=== PATIENT | female | born 1955 | race Two or more races ===

== ENCOUNTER 2024-07-01 09:19 | Emergency (ER) | payer OTHER, MEDICAID ==
[~2024-07-01] VITALS: Ht 160 cm; Wt 54.6 kg
[2024-07-01 09:44] VITALS: BP 155/80; PULSE 111; RESP 16; O2SAT 99
== END 2024-07-01 11:22 | disposition left against medical advice (07) ==
LOC: ER 09:19
DX: R79.83 Abnormal findings of blood amino-acid level (principal); R53.1 Weakness; R06.02 Shortness of breath

== ENCOUNTER 2024-08-10 09:36 | Emergency (ER) | payer OTHER, MEDICAID ==
[~2024-08-10] VITALS: Ht 160 cm; Wt 54.8 kg
[2024-08-10 10:24] LABS: Hemoglobin 9.2 g/dL (12.2-16.2); Mean Corpuscular Hemoglobin 31.4 pg (28.0-32.0); Platelet Count (auto) 119 10^3/uL (140-450)
[2024-08-10 10:25] LABS: Hematocrit 28.5 % (36.0-46.0); Mean Corpuscular Hgb Conc. 32.5 g/dL (32.0-36.0); Mean Corpuscular Volume 96.5 fL (80.0-100.0); Red Blood Cells 2.95 10^6/uL (4.0-5.20); Red Cell Distribution Width 17.5 % (11.8-14.3)
[2024-08-10 10:31] LABS: Band Neutrophils % (manual) 0; Basophils % (manual) 0 (0.0-2.0); Blast Cells 0; Eosinophils % (manual) 0 (0-7); Metamyelocytes % 0; Monocytes % (manual) 0 (0-12); Myelocytes % 0; Promyelocytes % 0; Reactive Lymphocytes 0; White Blood Cell 33.4 10^3/uL (4.4-10.8)
[2024-08-10 10:47] LABS: Chloride 104 mmol/L (98-107); Sodium 135 mmol/L (136-145)
[2024-08-10 10:48] LABS: Anion Gap 4 (5-15); Carbon Dioxide 27 mmol/L (20-31)
[2024-08-10 10:51] LABS: Potassium 4.5 mmol/L (3.5-5.1)
[2024-08-10 10:53] LABS: Glucose 106 mg/dL (74-106)
[2024-08-10 11:06] VITALS: PULSE 94; RESP 12; O2SAT 97
[2024-08-10 11:42] LABS: BUN/Creatinine Ratio 26.5 (10.0-20.0); Blood Urea Nitrogen 22 mg/dL (9-23)
[2024-08-10 12:02] LABS: Lymphocytes % (manual) 92 (10.0-50.0); Platelet Estimate Decreased
[2024-08-10] MEDS ORDERED: LACT10PA2 PO (12:32)
[2024-08-10 12:51] VITALS: BP 111/60; PULSE 97; RESP 12; TEMP 97.8; O2SAT 97
== END 2024-08-10 12:30 | disposition home or self-care (01) ==
LOC: ER 09:36
DX: R16.2 Hepatomegaly with splenomegaly, not elsewhere classified (principal); K59.00 Constipation, unspecified; F12.90 Cannabis use, unspecified, uncomplicated; Z98.890 Other specified postprocedural states
CPT/HCPCS: 36415; 74176; 80048; 85007; 85027

== ENCOUNTER 2024-11-13 14:00 | Emergency (ER) | payer OTHER, MEDICAID ==
[~2024-11-13] VITALS: Ht 160 cm; Wt 58.2 kg
[~2024-11-13 14:00] MED LIST: LACT10PA2 PO
--- NOTE | 2024-11-13 16:33 | ED.PDOC ---
History of Present Illness HPI Comments HPI: Poor Historian. HPI: 69 y/o F presents to the ED for CC of abnormal labs. 69-year-old female presents to the emergency department because her computerized mill mill recorder sent her to the hospital based on low hemoglobin obtained yesterday. Patient never had any blood transfusion. Patient is currently undergoing infusion therapy for lymphoma. She does not know exactly what her diagnosis is. Denies any other associated symptoms. Denies any bleeding from anywhere. Initial Vital Signs: Temp : 99.7 BP: 110/55 HR:102 RR: 16 SpO2: 97% Past Medical History: MANTLE CELL LYMPHOMA Past Surgical History: TONSILLECTOMY Social History: Denies smoking, ETOH, or drug use. Allergies: NKDA REVIEW OF SYSTEMS: CONSTITUTIONAL: Denies acute: fever, diaphoresis, chills, HEAD: Denies acute: headache, photophobia Eyes: Denies acute: Double vision, vision loss, eye pain, eye discharge. EARS: Denies acute: tinnitus, hearing loss, ear discharge, ear pain, THROAT: Denies acute: sore throat, swelling, difficulty swallowing , pain with swallowing, change in voice. NECK: Denies acute: neck pain, neck swelling, stiff neck. HEART: Denies acute : chest pain, palpitations, LUNGS: Denies acute: SOB, wheezing, cough, hemoptysis ABDOMEN: Denies acute: abdominal pain, Nausea, Vomiting, diarrhea, melena , hematemesis, hematochezia SKIN: Denies acute: rash, redness, lesions, itchiness. EXTREMITIES: Denies acute: calf pain, numbness, tingling, weakness, denies pain in extremity. Denies acute: Low back pain. Neuro: Denies acute: focal neurological deficit, motor or sensory focal neurological deficit, tremors, seizure like activity, confusion, dizziness, change in mental status, loss of bowel or bladder function, cauda equina like symptoms. : Denies acute: dysuria, hematuria, flank pain, increase in urinary frequency. PSYCH: Denies acute: hallucination, suicidal ideation, homicidal ideation. FEMALE: Denies acute: abnormal vaginal bleeding, foul odor, unusual discharge. PHYSICAL EXAM: General: no acute distress, awake and alert. Head: normocephalic, atraumatic. Neck: supple, trachea is midline, no swelling. Throat: Normal phonation. Eyes:, no erythema, no purulent discharge, no proptosis, no icterus. Heart: regular rate, regular rhythm, no significant murmur appreciated. Lungs: no apparent respiratory distress, Able to speak in full sentences. No wheezing, no rhonchi, no crackles. No stridors Clear to auscultation bilaterally. Abdomen: non tender to palpation, noted distention, soft, no guarding, no rebound, + bowel sounds. Neuro: Awake, Alert, oriented to name, self, situation, follows commands GCS=15. Speech is normal. Skin: no petechia, no purpura, no cyanosis, mild-pale, not jaundice. Lower extremities: --3/4 bilateral - Pitting edema no deformity, no focal swelling, no calf TTP. Makes eye contact. moves all four extremities. Face: no apparent facial droop. Ambulating in the ED independently. ED COURSE: Chief Complaint: Abnormal LAB's Time Seen by MD: 16:25 Primary Care Provider: ESPERANZA Reviewed Notes: Nurses Notes, Allergies Allergies: Coded Allergies: NO KNOWN ALLERGIES (Unverified , 07/01/24) Home Meds Active Scripts Lactulose (Lactulose) 10 Gm Sami, 10 GM PO DAILYP PRN for 3 Days, #3 PACK Prov:ANKITA PERRY MD 08/10/24 Information Source: Patient Mode of Arrival: Ambulatory Was a procedure done? Was a procedure done?: No Differential Dx Considerations may include: Anemia Electrolyte imbalance X-Ray, Labs, Meds, VS Vital Signs Date Time Temp Pulse Resp B/P (MAP) Pulse Ox O2 Delivery O2 Flow Rate FiO2 11/13/24 15:57 99.7 102 16 110/55 (73) 97 11/13/24 14:48 16 97 Room Air* 0 21 Lab Test 11/13/24 16:44 Range/Units White Blood Count 26.2 H 4.4-10.8 10^3/uL Red Blood Count 2.57 L 4.0-5.20 10^6/uL Hemoglobin 7.8 L 12.2-16.2 g/dL Hematocrit 24.7 L 36.0-46.0 % Mean Corpuscular Volume 96.3 80.0-100.0 fL Mean Corpuscular Hemoglobin 30.4 28.0-32.0 pg Mean Corpuscular Hemoglobin Concent 31.6 L 32.0-36.0 g/dL Red Cell Distribution Width 17.1 H 11.8-14.3 % Platelet Count 126 L 140-450 10^3/uL Mean Platelet Volume 7.4 6.9-10.8 fL Neutrophils (%) (Auto) 37.0-80.0 % Lymphocytes (%) (Auto) 10.0-50.0 % Monocytes (%) (Auto) 0.0-12.0 % Basophils (%) (Auto) 0.0-2.0 % Neutrophils # (Auto) 1.6-8.6 10 ^3/uL Lymphocytes # (Auto) 0.4-5.4 10 ^3/uL Monocytes # (Auto) 0-1.3 10 ^3/uL Differential Total Cells Counted Pending Neutrophils % (Manual) Pending Band Neutrophils % (Manual) Pending Lymphocytes % (Manual) Pending Monocytes % (Manual) Pending Eosinophils % (Manual) Pending Basophils % (Manual) Pending Metamyelocytes % (manual) Pending Myelocytes % (Manual) Pending Promyelocytes % (Manual) Pending Blast Cells % (Manual) Pending Reactive Lymphocytes Pending Platelet Estimate Pending Sodium Level Pending Potassium Level Pending Chloride Level Pending Carbon Dioxide Level Pending Anion Gap Pending Blood Urea Nitrogen Pending Creatinine Pending Glomerular Filtration Rate Calc Pending BUN/Creatinine Ratio Pending Serum Glucose Pending Calcium Level Pending Total Bilirubin Pending Aspartate Amino Transferase (AST) Pending Alanine Aminotransferase (ALT) Pending Alkaline Phosphatase Pending Troponin I High Sensitivity < 3 L </=34 ng/L B-Type Natriuretic Peptide 33.55 0-100 pg/mL Total Protein Pending Albumin Pending [address] [address] Ph: [phone] DIAGNOSTIC IMAGING Diagnostic Imaging Report : [id number] Signed PATIENT: VICKIE TAPIA ANNACCT: [id number] UNIT: [id number] : 1955 LOC: ER ROOM / BED: / AGE / SEX: 69 / F ADM STATUS: REG ER SERVICE 23 ORDERING PHYSICIAN: JING SUTHERLAND DO PROCEDURE(s): CXRP - CHEST PORTABLE REASON: weak ORDER NUMBER(s): [id number], ACCESSION NUMBER(s): [id number] EXAM: XR Chest, 1 View CLINICAL INDICATION: weak TECHNIQUE: Frontal view of the chest. COMPARISON: None FINDINGS: LUNGS AND PLEURAL SPACES: Unremarkable. No consolidation. No pneumothorax. HEART: Unremarkable. No cardiomegaly. MEDIASTINUM: Unremarkable. Normal mediastinal contour. BONES/JOINTS: Unremarkable. No acute fracture. OTHER FINDINGS: . None. . . .. IMPRESSION: No acute cardiopulmonary process. ATED BY: LIUDMILA GARCIA MD DICTATED DATE/TIME: 11/13/241638 SIGNED BY: LIUDMILA GARCIA MD SIGNED DATE/TIME: 11/13/241638 CC: Patient alert. Denies any symptoms. Vitals stable. Answering questions. Continue to monitor. Time of 1ST Reevaluation: 16:55 Reevaluation 1ST: Unchanged Patient Education/Counseling: Diagnosis, Treatment Family Education/Counseling: No Family Present Comments Patient presented with the above HPI. xx ABNORMAL LABS xx workup was initiated. patient was found with the above mentioned diagnosis. the following medications were ordered: n/a the following tests were ordered: LABS, CXR, BBK Patient ED course and VS have been stabilized. Patient has been reassessed in the ED and remained in a stable condition. Pertinent incidental findings were discussed with the patient and/or family. Patient/family voices understanding and is agreeable with plan. Patient has been observed in the ED adequate length of time to insure improvement/stability. Escalation of care considered: Consideration of escalation to observation or admission Patient was ADMITTED to the medicine team for further evaluation and treatment of their presentation. Patient was DISCHARGED home in a stable condition. Departure 1 Departure Time of Disposition: 17:29 Impression: Primary Impression: Anemia Qualified Codes: D64.9 - Anemia, unspecified Disposition: ADMITTED INPATIENT Admit to: Med Surg Condition: Guarded Additional Instructions: [address] [address] Ph: [phone] DIAGNOSTIC IMAGING Diagnostic Imaging Report : [id number] Signed PATIENT: VICKIE TAPIA ACCT: [id number] UNIT: [id number] : 1955 LOC: ER ROOM / BED: / AGE / SEX: 69 / F ADM STATUS: REG ER SERVICE 23 ORDERING PHYSICIAN: JING SUTHERLAND DO PROCEDURE(s): CXRP - CHEST PORTABLE REASON: weak ORDER NUMBER(s): [id number], ACCESSION NUMBER(s): [id number] EXAM: XR Chest, 1 View CLINICAL INDICATION: weak TECHNIQUE: Frontal view of the chest. COMPARISON: None FINDINGS: LUNGS AND PLEURAL SPACES: Unremarkable. No consolidation. No pneumothorax. HEART: Unremarkable. No cardiomegaly. MEDIASTINUM: Unremarkable. Normal mediastinal contour. BONES/JOINTS: Unremarkable. No acute fracture. OTHER FINDINGS: . None. . . .. IMPRESSION: No acute cardiopulmonary process. ATED BY: LIUDMILA GARCIA MD DICTATED DATE/TIME: 11/13/24 1639 SIGNED BY: LIUDMILA GARCIA MD SIGNED DATE/TIME: 11/13/24 1639 CC: Heart Score Heart Score: Heart Score Response (Comments) Value History N/A 0 EKG N/A 0 Age N/A 0 Risk Factors N/A 0 Troponin N/A 0 Total 0 I personally scribed for SASKIA BARRIOS MD ([email or web address]) on 11/13/24 at 16:33. Electronically submitted by Natalie Gates ([email or web address]). I personally scribed for SASKIA BARRIOS MD ([email or web address]) on 11/13/24 at 16:37. Electronically submitted by Natalie Gates ([email or web address]). I personally scribed for JING SUTHERLAND DO ([email or web address]) on 11/13/24 at 16:59. Electronically submitted by Natalie Gates ([email or web address]). SASKIA BARRIOS MD Nov 13, 2024 16:33 JING SUTHERLAND DO Nov 13, 2024 16:48
--- NOTE | 2024-11-13 16:41 | DVH ---
EXAM: XR Chest, 1 View CLINICAL INDICATION: weak TECHNIQUE: Frontal view of the chest. COMPARISON: None FINDINGS: LUNGS AND PLEURAL SPACES: Unremarkable. No consolidation. No pneumothorax. HEART: Unremarkable. No cardiomegaly. MEDIASTINUM: Unremarkable. Normal mediastinal contour. BONES/JOINTS: Unremarkable. No acute fracture. OTHER FINDINGS: . None. . . .. IMPRESSION: No acute cardiopulmonary process.
[2024-11-13 17:26] LABS: Hematocrit 24.7 % (36.0-46.0); Hemoglobin 7.8 g/dL (12.2-16.2); Mean Corpuscular Hemoglobin 30.4 pg (28.0-32.0); Mean Corpuscular Hgb Conc. 31.6 g/dL (32.0-36.0); Mean Corpuscular Volume 96.3 fL (80.0-100.0); Platelet Count (auto) 126 10^3/uL (140-450); Red Blood Cells 2.57 10^6/uL (4.0-5.20); Red Cell Distribution Width 17.1 % (11.8-14.3); White Blood Cell 26.2 10^3/uL (4.4-10.8)
[2024-11-13 17:29] LABS: Band Neutrophils % (manual) 0; Basophils % (manual) 0 (0.0-2.0); Blast Cells 0; Eosinophils % (manual) 0 (0-7); Metamyelocytes % 0; Myelocytes % 0; Promyelocytes % 0
[2024-11-13 17:46] LABS: Alanine Aminotransferase 10 U/L (7-40); Albumin 4.1 g/dL (3.2-4.8); Anion Gap 4 (5-15); Aspartate Aminotransferase 36 U/L (13-40); BUN/Creatinine Ratio 31.1 (10.0-20.0); Bilirubin, Total 0.4 mg/dL (0.2-1.0); Blood Urea Nitrogen 19 mg/dL (9-23); Calcium 9.6 mg/dL (8.7-10.4); Carbon Dioxide 27 mmol/L (20-31); Chloride 103 mmol/L (98-107); Glucose 101 mg/dL (74-106); Potassium 4.7 mmol/L (3.5-5.1); Total Protein 6.6 g/dL (5.7-8.2)
--- NOTE | 2024-11-13 17:59 | ED.PDOC ---
History of Present Illness HPI Comments HPI: Poor Historian. HPI: 69 y/o F presents to the ED for CC of abnormal labs. 69-year-old female presents to the emergency department because her application security consultant sent her to the hospital based on low hemoglobin obtained yesterday. Patient never had any blood transfusion. Patient is currently undergoing infusion therapy for lymphoma. She does not know exactly what her diagnosis is. Denies any other associated symptoms. Denies any bleeding from anywhere. Stool is normal in color. Initial Vital Signs: Temp : 99.7 BP: 110/55 HR:102 RR: 16 SpO2: 97% Past Medical History: MANTLE CELL LYMPHOMA Past Surgical History: TONSILLECTOMY Social History: Denies smoking, ETOH, or drug use. Allergies: NKDA REVIEW OF SYSTEMS: CONSTITUTIONAL: Denies acute: fever, diaphoresis, chills, HEAD: Denies acute: headache, photophobia Eyes: Denies acute: Double vision, vision loss, eye pain, eye discharge. EARS: Denies acute: tinnitus, hearing loss, ear discharge, ear pain, THROAT: Denies acute: sore throat, swelling, difficulty swallowing , pain with swallowing, change in voice. NECK: Denies acute: neck pain, neck swelling, stiff neck. HEART: Denies acute : chest pain, palpitations, LUNGS: Denies acute: SOB, wheezing, cough, hemoptysis ABDOMEN: Denies acute: abdominal pain, Nausea, Vomiting, diarrhea, melena , hematemesis, hematochezia SKIN: Denies acute: rash, redness, lesions, itchiness. EXTREMITIES: Denies acute: calf pain, numbness, tingling, weakness, denies pain in extremity. Denies acute: Low back pain. Neuro: Denies acute: focal neurological deficit, motor or sensory focal neurological deficit, tremors, seizure like activity, confusion, dizziness, change in mental status, loss of bowel or bladder function, cauda equina like symptoms. : Denies acute: dysuria, hematuria, flank pain, increase in urinary frequency. PSYCH: Denies acute: hallucination, suicidal ideation, homicidal ideation. FEMALE: Denies acute: abnormal vaginal bleeding, foul odor, unusual discharge. PHYSICAL EXAM: General: no acute distress, awake and alert. Head: normocephalic, atraumatic. Neck: supple, trachea is midline, no swelling. Throat: Normal phonation. Eyes:, no erythema, no purulent discharge, no proptosis, no icterus. Heart: regular rate, regular rhythm, no significant murmur appreciated. Lungs: no apparent respiratory distress, Able to speak in full sentences. No wheezing, no rhonchi, no crackles. No stridors Clear to auscultation bilaterally. Abdomen: non tender to palpation, noted distention , soft, no guarding, no rebound, + bowel sounds. Neuro: Awake, Alert, oriented to name, self, situation, follows commands GCS=15. Speech is normal. Skin: no petechia, no purpura, no cyanosis, noted-pale, not jaundice. Lower extremities: --2/4 bilateral - Pitting edema no deformity, no focal swelling, no calf TTP. Makes eye contact. moves all four extremities. Face: no apparent facial droop. Ambulating in the ED independently. ED COURSE: Chief Complaint: Abnormal LAB's Time Seen by MD: 16:00 Primary Care Provider: ESPERANZA Reviewed Notes: Nurses Notes, Medications, Allergies Allergies: Coded Allergies: NO KNOWN ALLERGIES (Unverified , 07/01/24) Home Meds Active Scripts Lactulose (Lactulose) 10 Gm Sami, 10 GM PO DAILYP PRN for 3 Days, #3 PACK Prov:ANKITA PERRY MD 08/10/24 Information Source: Patient Mode of Arrival: Ambulatory Severity: Mild Timing: Days Duration: Since onset Prehospital treatment: None Was a procedure done? Was a procedure done?: No Differential Dx Considerations may include: Anemia of chronic disease, dehydration, iron deficiency, neoplasm, side effects of medication, chemotherapy effect. X-Ray, Labs, Meds, VS Vital Signs Date Time Temp Pulse Resp B/P (MAP) Pulse Ox O2 Delivery O2 Flow Rate FiO2 11/13/24 23:26 102 17 98 Room Air 11/13/24 23:26 98.3 102 17 124/61 (82) 98 98.3 11/13/24 21:13 101 16 118/60 (79) 97 11/13/24 15:57 99.7 102 16 110/55 (73) 97 11/13/24 14:48 16 97 Room Air* 0 21 Lab Test 11/13/24 21:26 11/13/24 20:18 11/13/24 18:22 11/13/24 16:44 Range/Units Urine Color Yellow Yellow Urine Clarity Clear Clear Urine pH 6.0 5.0-9.0 Urine Specific [place] 1.023 1.001-1.035 Urine Protein Trace H Negative Urine Ketones Negative Negative Urine Blood Negative Negative /uL Urine Nitrite Negative Negative Urine Bilirubin Negative Negative Urine Urobilinogen Normal Negative mg/dL Urine Leukocyte Esterase 1+ Negative /uL Urine RBC 1 0 - 4 /hpf Urine Microscopic WBC 1 0-5 /HPF Urine Squamous Epithelial Cells Few <5 /hpf Urine Bacteria None seen None Seen /hpf Urine Mucus Few None Seen Urine Glucose Normal Normal mg/dL Troponin I High Sensitivity < 3 L < 3 L < 3 L </=34 ng/L Lactic Acid Level 1.1 0.4-2.0 mmol/L White Blood Count 26.2 H 4.4-10.8 10^3/uL Red Blood Count 2.57 L 4.0-5.20 10^6/uL Hemoglobin 7.8 L 12.2-16.2 g/dL Hematocrit 24.7 L 36.0-46.0 % Mean Corpuscular Volume 96.3 80.0-100.0 fL Mean Corpuscular Hemoglobin 30.4 28.0-32.0 pg Mean Corpuscular Hemoglobin Concent 31.6 L 32.0-36.0 g/dL Red Cell Distribution Width 17.1 H 11.8-14.3 % Platelet Count 126 L 140-450 10^3/uL Mean Platelet Volume 7.4 6.9-10.8 fL Neutrophils (%) (Auto) 37.0-80.0 % Lymphocytes (%) (Auto) 10.0-50.0 % Monocytes (%) (Auto) 0.0-12.0 % Basophils (%) (Auto) 0.0-2.0 % Neutrophils # (Auto) 1.6-8.6 10 ^3/uL Lymphocytes # (Auto) 0.4-5.4 10 ^3/uL Monocytes # (Auto) 0-1.3 10 ^3/uL Differential Total Cells Counted 100.0 100 Neutrophils % (Manual) 10 L 37.0-80.0 Band Neutrophils % (Manual) 0 Lymphocytes % (Manual) 81 H 10.0-50.0 Monocytes % (Manual) 9 0-12 Eosinophils % (Manual) 0 0-7 Basophils % (Manual) 0 0.0-2.0 Metamyelocytes % (manual) 0 Myelocytes % (Manual) 0 Promyelocytes % (Manual) 0 Blast Cells % (Manual) 0 Reactive Lymphocytes 0 Platelet Estimate Decreased Anisocytosis (manual) Slight Tear Drop Cells Few Stomatocytes Few Sodium Level 134 L 136-145 mmol/L Potassium Level 4.7 3.5-5.1 mmol/L Chloride Level 103 98-107 mmol/L Carbon Dioxide Level 27 20-31 mmol/L Anion Gap 4 L 5-15 Blood Urea Nitrogen 19 9-23 mg/dL Creatinine 0.61 0.550-1.02 mg/dL Glomerular Filtration Rate Calc 97 >90 mL/min BUN/Creatinine Ratio 31.1 H 10.0-20.0 Serum Glucose 101 74-106 mg/dL Calcium Level 9.6 8.7-10.4 mg/dL Total Bilirubin 0.4 0.2-1.0 mg/dL Aspartate Amino Transferase (AST) 36 13-40 U/L Alanine Aminotransferase (ALT) 10 7-40 U/L Alkaline Phosphatase 142 H 46-116 U/L B-Type Natriuretic Peptide 33.55 0-100 pg/mL Total Protein 6.6 5.7-8.2 g/dL Albumin 4.1 3.2-4.8 g/dL Time of 1ST Reevaluation: 16:30 Reevaluation 1ST: Unchanged Time of 2ND Reevaluation: 22:51 (PATIENT IS PLACED UP FOR ADMISSION. THE NURSE PRACTITIONER CAME AND EVALUATED THE PATIENT AND SAID HE IS DISCHARGING THE PATIENT HOME. NURSE PRACTITIONER VALERI) Patient Education/Counseling: Diagnosis, Treatment Family Education/Counseling: Other Comments Patient presented with the above HPI.---low hemoglobin---workup was initiated. patient was found with the above mentioned diagnosis. the following medications were ordered: please refer to order lists of meds and tests obtained by myself Dr. Sutherland. Patient ED course and VS have been stabilized. Patient has been reassessed in the ED and remained in a stable condition. Pertinent incidental findings were discussed with the patient and/or family. Patient/family voices understanding and is agreeable with plan. Patient has been observed in the ED adequate length of time to insure improvement/stability. Escalation of care considered: Consideration of escalation to observation or admission Patient was ADMITTED to the medicine team for further evaluation and treatment of their presentation. However I was made aware later that the admitting team came and discharge the patient home with a arrange for outpatient workup and evaluation. All the reports of any imaging studies that were ordered by myself were reviewed by myself. Departure 1 Departure Time of Disposition: 17:29 Impression: Primary Impression: Anemia Qualified Codes: D64.9 - Anemia, unspecified Additional Impressions: Thrombocytopenia Lymphoma Disposition: ADMITTED INPATIENT Admit to: Med Surg Condition: Guarded Additional Instructions: [place] [address] Ph: [phone] DIAGNOSTIC IMAGING Diagnostic Imaging Report : [id number] Signed PATIENT: VCIKIE TAPIA ACCT: [id number] UNIT: [id number] : 1955 LOC: ER ROOM / BED: / AGE / SEX: 69 / F ADM STATUS: REG ER SERVICE 23 ORDERING PHYSICIAN: JING SUTHERLAND DO PROCEDURE(s): CXRP - CHEST PORTABLE REASON: weak ORDER NUMBER(s): [id number], ACCESSION NUMBER(s): [id number] EXAM: XR Chest, 1 View CLINICAL INDICATION: weak TECHNIQUE: Frontal view of the chest. COMPARISON: None FINDINGS: LUNGS AND PLEURAL SPACES: Unremarkable. No consolidation. No pneumothorax. HEART: Unremarkable. No cardiomegaly. MEDIASTINUM: Unremarkable. Normal mediastinal contour. BONES/JOINTS: Unremarkable. No acute fracture. OTHER FINDINGS: . None. . . .. IMPRESSION: No acute cardiopulmonary process. ATED BY: LIUDMILA GARCIA MD DICTATED DATE/TIME: 11/13/241638 SIGNED BY: LIUDMILA GARCIA MD SIGNED DATE/TIME: 11/13/241638 CC: Discharged With: Self Heart Score Heart Score: Heart Score Response (Comments) Value History N/A 0 EKG N/A 0 Age N/A 0 Risk Factors N/A 0 Troponin N/A 0 Total 0 I personally scribed for JING SUTHERLAND DO ([email or web address]) on 11/13/24 at 17:59. Electronically submitted by Natalie Gates ([email or web address]). I personally scribed for JING SUTHERLAND DO ([email or web address]) on 11/13/24 at 18:07. Electronically submitted by Natalie Gates ([email or web address]). JING SUTHERLAND DO Nov 13, 2024 17:59
[2024-11-13 18:27] LABS: Alkaline Phosphatase 142 U/L (46-116); Sodium 134 mmol/L (136-145)
[2024-11-13 21:13] LABS: Monocytes % (manual) 9 (0-12)
[2024-11-13 21:15] LABS: Platelet Estimate Decreased; Reactive Lymphocytes 0
[2024-11-13 21:16] LABS: Lymphocytes % (manual) 81 (10.0-50.0)
[2024-11-13 21:17] LABS: Anisocytosis Slight; Stomatocytes Few; Tear Drop Cells FEW
[2024-11-13 21:33] LABS: Urine Bacteria None Seen /hpf (None Seen)
[2024-11-13 22:09] LABS: Urine Blood Negative /uL (Negative); Urine Clarity Clear (Clear); Urine Color Yellow (Yellow); Urine Mucus FEW (None Seen); Urine Protein, UAD TRACE (Negative); Urine Specific Gravity 1.023 (1.001-1.035); Urine Squamous Epithelial Cell FEW /hpf (<5); Urine Urobilinogen Normal (Negative); Urine WBC 1 /HPF (0-5)
--- NOTE | 2024-11-13 22:54 | DVHINCON2 ---
VALERI MICHAEL PILOT INSTRUCTOR 11/13/24 2254: Date of service: Nov 13, [address] Singleton Reason for Consultation Medical management History of Present Illness 69-year-old female past medical history lymphoma presents with complaints of an abnormal lab values. Patient was sent in by box truck washer Dr. Buchanan for low hemoglobin 6.8. However during the emergency department evaluation hemoglobin is found to be at 7.8. At This time patient has no complaints of dizziness, chest pain, shortness for breath, nausea, vomiting, diarrhea, hematemesis, hematochezia, melena, dysuria. Past Medical History Lymphoma Social History Denies ETOH, illicit drugs, smoking Allergies: Coded Allergies: NO KNOWN ALLERGIES (Unverified , 07/01/24) Home Meds Active Scripts Lactulose (Lactulose) 10 Gm Sami, 10 GM PO DAILYP PRN for 3 Days, #3 PACK Prov:ANKITA PERRY MD 08/10/24 Review of Systems 10 systems reviewed and negative except as per HPI Vital Signs Vital Signs Date Time Temp Pulse Resp B/P (MAP) Pulse Ox O2 Delivery O2 Flow Rate FiO2 11/13/24 21:13 101 16 118/60 (79) 97 11/13/24 15:57 99.7 11/13/24 14:48 Room Air* 0 21 Physical Exam GENERAL: Patient appearing stated age, in no acute distress. HEENT: Pupils equal and reactive to light and accommodation. Extraocular muscles intact. Mucous membranes moist. Conjunctivae pink. Anicteric sclerae. LUNGS: Bilateral air entry. No wheezes, rhonchi or rales. HEART: Regular rate and rhythm. Normal S1 and S2. ABDOMEN: BS normoactive, soft, nontender, and nondistended. No CVA tenderness. EXTREMITIES: No clubbing, cyanosis, edema. No calf tenderness. Pedal pulses 2+. NEUROLOGICAL: The patient is alert and oriented times 3. CN II-XII intact. No focal deficits on gross sensory or motor examination. Labs/Diagnostic Data Labs Test 11/13/24 21:26 11/13/24 20:18 11/13/24 18:22 11/13/24 16:44 Range/Units Urine Color Yellow Yellow Urine Clarity Clear Clear Urine pH 6.0 5.0-9.0 Urine Specific [place] 1.023 1.001-1.035 Urine Protein Trace H Negative Urine Ketones Negative Negative Urine Blood Negative Negative /uL Urine Nitrite Negative Negative Urine Bilirubin Negative Negative Urine Urobilinogen Normal Negative mg/dL Urine Leukocyte Esterase 1+ Negative /uL Urine RBC 1 0 - 4 /hpf Urine Microscopic WBC 1 0-5 /HPF Urine Squamous Epithelial Cells Few <5 /hpf Urine Bacteria None seen None Seen /hpf Urine Mucus Few None Seen Urine Glucose Normal Normal mg/dL Troponin I High Sensitivity < 3 L </=34 ng/L Lactic Acid Level 1.1 0.4-2.0 mmol/L White Blood Count 26.2 H 4.4-10.8 10^3/uL Red Blood Count 2.57 L 4.0-5.20 10^6/uL Hemoglobin 7.8 L 12.2-16.2 g/dL Hematocrit 24.7 L 36.0-46.0 % Mean Corpuscular Volume 96.3 80.0-100.0 fL Mean Corpuscular Hemoglobin 30.4 28.0-32.0 pg Mean Corpuscular Hemoglobin Concent 31.6 L 32.0-36.0 g/dL Red Cell Distribution Width 17.1 H 11.8-14.3 % Platelet Count 126 L 140-450 10^3/uL Mean Platelet Volume 7.4 6.9-10.8 fL Neutrophils (%) (Auto) 37.0-80.0 % Lymphocytes (%) (Auto) 10.0-50.0 % Monocytes (%) (Auto) 0.0-12.0 % Basophils (%) (Auto) 0.0-2.0 % Neutrophils # (Auto) 1.6-8.6 10 ^3/uL Lymphocytes # (Auto) 0.4-5.4 10 ^3/uL Monocytes # (Auto) 0-1.3 10 ^3/uL Differential Total Cells Counted 100.0 100 Neutrophils % (Manual) 10 L 37.0-80.0 Band Neutrophils % (Manual) 0 Lymphocytes % (Manual) 81 H 10.0-50.0 Monocytes % (Manual) 9 0-12 Eosinophils % (Manual) 0 0-7 Basophils % (Manual) 0 0.0-2.0 Metamyelocytes % (manual) 0 Myelocytes % (Manual) 0 Promyelocytes % (Manual) 0 Blast Cells % (Manual) 0 Reactive Lymphocytes 0 Platelet Estimate Decreased Anisocytosis (manual) Slight Tear Drop Cells Few Stomatocytes Few Sodium Level 134 L 136-145 mmol/L Potassium Level 4.7 3.5-5.1 mmol/L Chloride Level 103 98-107 mmol/L Carbon Dioxide Level 27 20-31 mmol/L Anion Gap 4 L 5-15 Blood Urea Nitrogen 19 9-23 mg/dL Creatinine 0.61 0.550-1.02 mg/dL Glomerular Filtration Rate Calc 97 >90 mL/min BUN/Creatinine Ratio 31.1 H 10.0-20.0 Serum Glucose 101 74-106 mg/dL Calcium Level 9.6 8.7-10.4 mg/dL Total Bilirubin 0.4 0.2-1.0 mg/dL Aspartate Amino Transferase (AST) 36 13-40 U/L Alanine Aminotransferase (ALT) 10 7-40 U/L Alkaline Phosphatase 142 H 46-116 U/L B-Type Natriuretic Peptide 33.55 0-100 pg/mL Total Protein 6.6 5.7-8.2 g/dL Albumin 4.1 3.2-4.8 g/dL Assessment Anemia Leukocytosis Hx lymphoma Plan/Recommendation At this time patient's hemoglobin stable 7.8. Patient does present with leukocytosis 26.2 which is likely secondary to lymphoma which is currently under treatment and being followed by Hematology/Oncology. Patient has remained hemodynamically stable while in the emergency department without signs of overt bleeding. Patient is to be discharged home HMO case management has been consulted to set up home safety evaluation for the morning. we will set up of follow up CBC for Sunday morning at our outpatient urgent care center. Additionally, if transfusion PRBCs needed, we will schedule an outpatient basis. Plan of care was discussed in detail with the patient who agrees and prefers to be discharged home at this time. Patient was provided with strict ER precautions including but not limited to syncope, dizziness, shortness for breath, chest pain, palpitations, any signs of overt bleeding including hematemesis, hematochezia, melena. Plan discussed with: Patient LATA ACUNA MD 11/14/241900: Allergies: Coded Allergies: NO KNOWN ALLERGIES (Unverified , 07/01/24) Home Meds Active Scripts Lactulose (Lactulose) 10 Gm Sami, 10 GM PO DAILYP PRN for 3 Days, #3 PACK Prov:ANKITA PERRY MD 08/10/24 Assessment Patient's chart reviewed and discussed with the nurse practitioner. I agree with the nurse practitioner's evaluation, documentation, assessment and care p pola as outlined. Plan discussed with: Other VALERI MICHAEL NP Nov 13, 2024 22:54 LATA ACUNA MD Nov 14, 2024 19:01
[2024-11-13 23:26] VITALS: BP 124/61; PULSE 102; RESP 17; TEMP 98.3; O2SAT 98
== END 2024-11-13 23:27 | disposition home or self-care (01) ==
LOC: ER 14:00
DX: D64.9 Anemia, unspecified (principal); D72.829 Elevated white blood cell count, unspecified; Z85.72 Personal history of non-Hodgkin lymphomas; Z90.89 Acquired absence of other organs
CPT/HCPCS: 36415; 71045; 80053; 81001; 83605; 83880; 84484; 85007; 85027; 86850; 86900; 86901

== ENCOUNTER 2024-11-17 19:19 | Inpatient (IN) | payer OTHER, MEDICAID ==
[~2024-11-17] VITALS: Ht 160 cm; Wt 56.0 kg
--- NOTE | 2024-11-17 20:07 | ED.PDOC ---
Back pain HPI HPI Comments 69 y.o female with PMHx of lymphoma and an enlarged liver, presents to the ED via EMS for a chief complaint of mid lower back pain that started 2 days ago. Patient reports pain initially presented to the right flank but has migrated to the back region. Patient has been taking Tylenol at home but no pain relief. Patient denies any recent falls trauma, history of back pain or surgeries. Patient also mentions abdominal distention for the past 2-3 months but no pain, nausea, vomiting, diarrhea, constipation, fever, chills. Chief Complaint: Back Pain Time Seen by MD: 20:00 Primary Care Provider: ESPERANZA Reviewed Notes: Nurses Notes, Medications, Allergies Allergies: Coded Allergies: NO KNOWN ALLERGIES (Unverified , 07/01/24) Home Meds Active Scripts Lactulose (Lactulose) 10 Gm Sami, 10 GM PO DAILYP PRN for 3 Days, #3 PACK Prov:ANKITA PERRY MD 08/10/24 Information Source: Patient Mode of Arrival: EMS Duration: Since onset Location of Back pain: (B) Lower back, (B) Lumbar Severity: Moderate Quality: Sharp Onset: Spontaneous History of: Other Modifying Factors: Nothing Associated signs and symptoms: None Past Medical History PAST MEDICAL HISTORY: Liver (enlarged ) Past Medical History (Other): Lymphoma Surgical History: Unknown [employer] History: Denies all [employer] Hx Family History Family History: Reviewed,noncontributory to illness, Unknown Social History Smoker: Non-Smoker Alcohol: Denies ETOH Use Drugs: Marijuana Lives In: Home Constitutional: denies: chills, diaphoresis, fatigue, fever, malaise, sweats, weakness, others EENTM: denies: blurred vision, double vision, ear bleeding, ear discharge, ear drainage, ear pain, ear ringing, eye pain, eye redness, hearing loss, mouth pain, mouth swelling, nasal discharge, nose bleeding, nose congestion, nose pain, photophobia, tearing, throat pain, throat swelling, voice changes, others Respiratory: denies: cough, hemoptysis, orthopnea, SOB at rest, shortness of breath, SOB with excertion, stridor, wheezing, others Cardiovascular: denies: chest pain, dizzy spells, diaphoresis, Dyspnea on exertion, edema, irregular heart beat, left arm pain, lightheadedness, palpitations, PND, syncope, others Gastrointestinal: denies: abdomen distended, abdominal pain, blood streaked bowels, constipated, diarrhea, dysphagia, difficulty swallowing, hematemesis, melena, nausea, poor appetite, poor fluid intake, rectal bleeding, rectal pain, vomiting, others Genitourinary: reports: flank pain; denies: abnormal vagina bleeding, burning, dyspareunia, dysuria, frequency, hematuria, incontinence, pain, , vagina discharge, urgency, others Neurological: denies: dizziness, fainting, headache, left sided numbness, left sided weakness, numbness, paresthesia, pre-existing deficit, right sided numbness, right sided weakness, seizure, speech problems, tingling, tremors, weakness, others Musculoskeletal: reports: back pain; denies: gout, joint pain, joint swelling, muscle pain, muscle stiffness, neck pain, others Integumetry: denies: bruises, change in color, change in hair/nails, dryness, laceration, lesions, lumps, rash, wounds, others Allergic/Immunocompromised: denies: Difficulty Healing, Frequent Infections, Hives, Itching, others Hematologic/Lymphatic: denies: anemia, blood clots, easy bleeding, easy bruising, swollen glands, others Endocrine: denies: excessive hunger, excessive sweating, excessive thirst, excessive urination, flushing, intolerance to cold, intolerance to heat, unexplained weight gain, unexplained weight loss, others Psychiatric: denies: anxiety, bipolar disorder, depression, hopeless, panic disorder, schizophrenia, sleepless, suicidal, others All Other Systems: Reviewed and Negative Physical Exam General Appearance: No Apparent Distress, Normal HEENT: Normal ENT Inspection, Pharynx Normal, TMs Normal Neck: Full Range of Motion, Non-Tender, Normal, Normal Inspection Respiratory: Chest Non-Tender, Lungs Clear, No Accessory Muscle Use, No Respiratory Distress, Normal Breath Sounds Cardiovascular: No Edema, No JVD, No Murmur, No Gallop, Normal Peripheral Pulses, Regular Rate/Rhythm Breast Exam: Deferred Gastrointestinal: Distended (round and firm ), Non Tender Genitalia: Deferred Pelvic: Deferred Rectal: Deferred Extremities: No calf tenderness, Normal capillary refill, Normal inspection, Normal range of motion, Non-tender, No pedal edema Musculoskeletal : Apperance: Normal Neurologic: Alert, senior genetic counselor II-XII nml as Tested, No Motor Deficits, Normal Affect, Normal Mood, No Sensory Deficits Cerebellar Function: Normal Reflexes: Normal Skin: Dry, Normal Color, Warm Lymphatic: No Adenopathy Was a procedure done? Was a procedure done?: No Back Pain Differential Dx Differential Diagnosis: DJD, Fracture, Musculoskeletal Pain, Pancreatits, Pyelonephritis, Strain, Urolithiasis X-Ray, Labs, Meds, VS Vital Signs Date Time Temp Pulse Resp B/P (MAP) Pulse Ox O2 Delivery O2 Flow Rate FiO2 11/17/24 19:25 98.4 120 17 112/68 (83) 94 Lab Test 11/17/24 19:55 Range/Units White Blood Count 31.0 *H 4.4-10.8 10^3/uL Red Blood Count 2.65 L 4.0-5.20 10^6/uL Hemoglobin 8.0 L 12.2-16.2 g/dL Hematocrit 25.1 L 36.0-46.0 % Mean Corpuscular Volume 94.8 80.0-100.0 fL Mean Corpuscular Hemoglobin 30.1 28.0-32.0 pg Mean Corpuscular Hemoglobin Concent 31.7 L 32.0-36.0 g/dL Red Cell Distribution Width 17.6 H 11.8-14.3 % Platelet Count 105 L 140-450 10^3/uL Mean Platelet Volume 8.0 6.9-10.8 fL Neutrophils (%) (Auto) 37.0-80.0 % Lymphocytes (%) (Auto) 10.0-50.0 % Monocytes (%) (Auto) 0.0-12.0 % Basophils (%) (Auto) 0.0-2.0 % Neutrophils # (Auto) 1.6-8.6 10 ^3/uL Lymphocytes # (Auto) 0.4-5.4 10 ^3/uL Monocytes # (Auto) 0-1.3 10 ^3/uL Differential Total Cells Counted 100.0 100 Neutrophils % (Manual) 17 L 37.0-80.0 Band Neutrophils % (Manual) 2 Lymphocytes % (Manual) 72 H 10.0-50.0 Monocytes % (Manual) 4 0-12 Eosinophils % (Manual) 0 0-7 Basophils % (Manual) 0 0.0-2.0 Metamyelocytes % (manual) 0 Myelocytes % (Manual) 0 Promyelocytes % (Manual) 0 Blast Cells % (Manual) 0 Reactive Lymphocytes 5 Smudge Cells 12 /100 WBC Platelet Estimate Decreased Stomatocytes Few Sodium Level 129 #L 136-145 mmol/L Potassium Level 4.4 3.5-5.1 mmol/L Chloride Level 99 98-107 mmol/L Carbon Dioxide Level 24 20-31 mmol/L Anion Gap 6 5-15 Blood Urea Nitrogen 23 9-23 mg/dL Creatinine 0.65 0.550-1.02 mg/dL Glomerular Filtration Rate Calc 95 >90 mL/min BUN/Creatinine Ratio 35.4 H 10.0-20.0 Serum Glucose 177 H 74-106 mg/dL Calcium Level 9.7 8.7-10.4 mg/dL Total Bilirubin 0.6 0.2-1.0 mg/dL Aspartate Amino Transferase (AST) 28 13-40 U/L Alanine Aminotransferase (ALT) 11 7-40 U/L Alkaline Phosphatase 148 H 46-116 U/L Ammonia 15 11-32 umol/L Total Protein 6.6 5.7-8.2 g/dL Albumin 3.9 3.2-4.8 g/dL Lipase 46 12-53 U/L X-Ray, Labs, Meds, VS Comment CT scan shows multifocal pneumonia of the right lobe. Patient will be admitted for IV antibiotics Concerns due to patient's lymphoma and immunocompromise Patient will be started on Rocephin and azithromycin Time of 1ST Reevaluation: 20:03 Reevaluation 1ST: Unchanged Patient Education/Counseling: Diagnosis, Treatment, Prognosis Family Education/Counseling: No Family Present Departure 1 Departure Time of Disposition: 00:37 Impression: Primary Impression: Lymphoma Qualified Codes: C85.90 - Non-Hodgkin lymphoma, unspecified, unspecified site Additional Impressions: Shortness of breath Multifocal pneumonia Disposition: ADMITTED INPATIENT Condition: Fair Discharged With: Self Critical Care Note Critical Care Time?: No Stability Stability form required: No I personally scribed for ABEL MERDANO ([facility]) on 11/17/24 at 20:07. Electronically submitted by Kelsey Aj ([facility]). ABEL MEDRANO Nov 17, 2024 20:07
[2024-11-17 20:19] LABS: Hematocrit 25.1 % (36.0-46.0); Mean Corpuscular Hemoglobin 30.1 pg (28.0-32.0); Mean Corpuscular Hgb Conc. 31.7 g/dL (32.0-36.0); Mean Corpuscular Volume 94.8 fL (80.0-100.0); Platelet Count (auto) 105 10^3/uL (140-450); Red Blood Cells 2.65 10^6/uL (4.0-5.20); Red Cell Distribution Width 17.6 % (11.8-14.3)
[2024-11-17 20:38] LABS: Basophils % (manual) 0 (0.0-2.0); Blast Cells 0; Eosinophils % (manual) 0 (0-7); Metamyelocytes % 0; Myelocytes % 0; Promyelocytes % 0
[2024-11-17 20:45] LABS: Alanine Aminotransferase 11 U/L (7-40); Albumin 3.9 g/dL (3.2-4.8); Anion Gap 6 (5-15); Aspartate Aminotransferase 28 U/L (13-40); BUN/Creatinine Ratio 35.4 (10.0-20.0); Bilirubin, Total 0.6 mg/dL (0.2-1.0); Calcium 9.7 mg/dL (8.7-10.4); Carbon Dioxide 24 mmol/L (20-31); Chloride 99 mmol/L (98-107); Lipase 46 U/L (12-53); Potassium 4.4 mmol/L (3.5-5.1); Total Protein 6.6 g/dL (5.7-8.2)
[2024-11-17 20:56] LABS: Alkaline Phosphatase 148 U/L (46-116); Blood Urea Nitrogen 23 mg/dL (9-23); Glucose 177 mg/dL (74-106); Sodium 129 mmol/L (136-145)
[2024-11-17 20:59] LABS: Band Neutrophils % (manual) 2; Lymphocytes % (manual) 72 (10.0-50.0); Monocytes % (manual) 4 (0-12); Platelet Estimate Decreased; Reactive Lymphocytes 5; Smudge Cells 12 /100 WBC; Stomatocytes Few
--- NOTE | 2024-11-17 21:44 | DVH ---
Exam: CT CT AB PEL WO CON-NO ORAL OR IV History: flank pain Comparison Study: None Technique: Multidetector spiral CT of the abdomen was performed from lung bases to pubic symphysis. Imaging was performed without IV contrast. Axial, coronal and sagittal multiplanar reformats were ob tained from the axial data set by the technologist. Radiation Dose : 1. Abdomen/Pelvis: CTDIvol 5.4 mGy, DLP 313 mGy*cm. Findings: Evaluation of solid organs is limited due to lack of intravenous contrast use. Lung Bases: Multifocal pneumonia throughout the right lung. Trace right pleural effusion. Liver: Hepatomegaly measuring up to 27 cm. Gallbladder and Biliary Tree: Unremarkable Spleen: Splenomegaly measuring up to 27 cm. Pancreas: The pancreas is grossly normal in appearance. Adrenal Glands: Unremarkable Kidneys: Kidneys are grossly normal without calculi or hydronephrosis. Bladder: Grossly unremarkable for degree of distention. Bowel: The stomach is grossly normal in appearance. Small bowel and colon are normal in caliber and d istribution. The appendix is not visualized; however, no secondary findings of acute appendicitis id entified. Ascites: Absent Lymphadenopathy: No mesenteric, retroperitoneal or periportal lymphadenopathy. Abdominal Wall and Mesentery: Unremarkable. Vasculature: The visualized abdominal aorta is normal in size and caliber. Evaluation of abdominal a nd pelvic vessels is limited due to lack of intravenous contrast. Pelvic Organs: Unremarkable Musculoskeletal: No aggressive focal bony lesions, acute fractures or dislocation. IMPRESSION: 1. Multifocal pneumonia throughout the right lung.Trace right pleural effusion. 2. Trace right pleural effusion. 3. Severe hepatosplenomegaly.. Radiation optimization: All CT scans at this facility use at least one of these dose optimization thang hniques: automated exposure control mA and/or kV adjustment per patient size (includes targeted exam s where dose is matched to clinical indication) or iterative reconstruction.
[2024-11-18] VITALS (12 sets, daily range): BP systolic 105; BP diastolic 58; PULSE 119–133; RESP 16–49; TEMP 101.4; O2SAT 90–100
[2024-11-18] MEDS: cefTRIAXone 1GM/50ML D5W 50 ML IV ONE (02:03)
[2024-11-18] MEDS: AZITHROMYCIN 500MG/ 250ML 250 ML IV ONE (02:21)
[2024-11-18] MEDS: SODIUM CHLORIDE 0.9% 1,000 ML IV ONE (02:32)
[2024-11-18] MEDS: ONDANSETRON ODT 4 MG TAB PO ONE (02:33)
[2024-11-18] MEDS: MORPHINE SULFATE 4 MG/ML SYR/VIAL IM ONE (02:33)
[2024-11-18] MEDS: ACETAMINOPHEN 325 MG TAB PO ONE (02:34)
[2024-11-18] MEDS ORDERED: NITROGLYCERIN 0.4 MG SL TAB SL PRN (04:00)
[2024-11-18] MEDS ORDERED: ONDANSETRON HCL 4 MG/2 ML VIAL IV PRN (04:00)
[2024-11-18] MEDS ORDERED: MORPHINE SULFATE INJ 2 MG/ml SYRG IV PRN (04:00)
[2024-11-18] MEDS: SODIUM CHLORIDE 0.9% 1,000 ML IV SCH (04:25)
--- NOTE | 2024-11-18 04:26 | DVHHP2 ---
VALERI MICHAEL [employer]WER [employer] 11/18/24 0426: History of Present Illness Reason for Visit: Back pain History of Present Illness 69-year-old female with past medical history of anemia, lymphoma presents with complaints of back pain. While in the emergency department patient was incidentally found to have right lobe pneumonia on CT of the abdomen and pelvis. While in the emergency department patient also became febrile and has been hypoxic requiring supplemental oxygen at 3 L nasal cannula. At this time patient denies any chest pain, nausea, vomiting, dizziness, leg swelling. Heme/Onc: Cancer Smoke: No ALCOHOL: none Drugs: None Lives: with Family Review of Systems Constitutional: Yes: Fever, Malaise; No: Chills, Sweats, Weakness, Other Eyes: No: Pain, Vision change, Conjunctivae inflammation, Eyelid inflammation, Other, Redness ENT: No: Ear pain, Ear discharge, Nose pain, Nose discharge, Nose congestion, Mouth pain, Mouth swelling, Throat pain, Throat swelling, Other Respiratory: Shortness of breath Cardiovascular: No: Chest Pain, Palpitations, Orthopnea, Paroxysmal Noc. Dyspnea, Edema, Lt Headedness, Other Gastrointestinal: No: Nausea, Vomiting, Abdominal Pain, Diarrhea, Constipation, Melena, Hematochezia, Other Genitourinary: No Dysuria, No Frequency, No Incontinence, No Hematuria, No Retention, No Other Musculoskeletal: No: other, neck pain, shoulder pain, arm pain, back pain, hand pain, leg pain, foot pain Skin: No: Rash, Lesions, Jaundice, Bruising, Other Neurological: No: Weakness, Numbness, Incoordination, Change in speech, Confusion, Seizures, Other Allergies: Coded Allergies: NO KNOWN ALLERGIES (Unverified , 07/01/24) Medications Current Medications Medications Dose Ordered Sig/Aida Route Start Time Stop Time Status Last Admin Dose Admin Sodium Chloride 1,000 ml @ 100 mls/hr Q10H IV 11/18/24 04:00 Docusate Sodium 100 mg BIDPRN PRN PO 11/18/24 04:00 Acetaminophen 650 mg Q6HP PRN PO 11/18/24 04:00 Acetaminophen/ Hydrocodone Bitart 1 tab Q6HPRN PRN PO 11/18/24 04:00 Ondansetron HCl 4 mg Q4HP PRN IV 11/18/24 04:00 Nitroglycerin 0.4 mg Q5MINP PRN SL 11/18/24 04:00 Morphine Sulfate 2 mg Q30M PRN IV 11/18/24 04:00 Ceftriaxone Sodium 50 ml @ 100 mls/hr DAILY IV 11/19/24 10:00 Azithromycin 250 ml @ 125 mls/hr DAILY IV 11/19/24 10:00 Albuterol 2.5 mg Q4HWA NEB 11/18/24 06:00 Ipratropium [place] 0.5 mg Q4HWA NEB 11/18/24 06:00 Exam Vital Signs Vital Signs Date Time Temp Pulse Resp B/P (MAP) Pulse Ox O2 Delivery O2 Flow Rate FiO2 11/18/24 03:36 126 43 91 11/18/24 03:06 101.0 136/70 (92) 101.0 11/18/24 02:51 Nasal Cannula* 3 32 General Appearance: Alert, Oriented X3, Cooperative, moderate distress HEENT: Atraumatic, PERRLA, EOMI Respiratory: Other (Diminished air exchange bilaterally. Right lobe rhonchi) Cardiovascular: Regular rate, Normal S1, Normal S2 Abdominal: Normal bowel sounds, Soft, No tenderness Extremities: No cyanosis Skin: No breakdown Neuro: Normal gait, Normal speech, Strength at 5/5 X4 ext Psych/Mental Status: Mental status NL, Mood NL Labs/Xrays Labs Test 11/18/24 02:31 11/17/24 19:55 Range/Units Lactic Acid Level 1.0 0.4-2.0 mmol/L White Blood Count 31.0 *H 4.4-10.8 10^3/uL Red Blood Count 2.65 L 4.0-5.20 10^6/uL Hemoglobin 8.0 L 12.2-16.2 g/dL Hematocrit 25.1 L 36.0-46.0 % Mean Corpuscular Volume 94.8 80.0-100.0 fL Mean Corpuscular Hemoglobin 30.1 28.0-32.0 pg Mean Corpuscular Hemoglobin Concent 31.7 L 32.0-36.0 g/dL Red Cell Distribution Width 17.6 H 11.8-14.3 % Platelet Count 105 L 140-450 10^3/uL Mean Platelet Volume 8.0 6.9-10.8 fL Neutrophils (%) (Auto) 37.0-80.0 % Lymphocytes (%) (Auto) 10.0-50.0 % Monocytes (%) (Auto) 0.0-12.0 % Basophils (%) (Auto) 0.0-2.0 % Neutrophils # (Auto) 1.6-8.6 10 ^3/uL Lymphocytes # (Auto) 0.4-5.4 10 ^3/uL Monocytes # (Auto) 0-1.3 10 ^3/uL Differential Total Cells Counted 100.0 100 Neutrophils % (Manual) 17 L 37.0-80.0 Band Neutrophils % (Manual) 2 Lymphocytes % (Manual) 72 H 10.0-50.0 Monocytes % (Manual) 4 0-12 Eosinophils % (Manual) 0 0-7 Basophils % (Manual) 0 0.0-2.0 Metamyelocytes % (manual) 0 Myelocytes % (Manual) 0 Promyelocytes % (Manual) 0 Blast Cells % (Manual) 0 Reactive Lymphocytes 5 Smudge Cells 12 /100 WBC Platelet Estimate Decreased Stomatocytes Few Sodium Level 129 #L 136-145 mmol/L Potassium Level 4.4 3.5-5.1 mmol/L Chloride Level 99 98-107 mmol/L Carbon Dioxide Level 24 20-31 mmol/L Anion Gap 6 5-15 Blood Urea Nitrogen 23 9-23 mg/dL Creatinine 0.65 0.550-1.02 mg/dL Glomerular Filtration Rate Calc 95 >90 mL/min BUN/Creatinine Ratio 35.4 H 10.0-20.0 Serum Glucose 177 H 74-106 mg/dL Calcium Level 9.7 8.7-10.4 mg/dL Total Bilirubin 0.6 0.2-1.0 mg/dL Aspartate Amino Transferase (AST) 28 13-40 U/L Alanine Aminotransferase (ALT) 11 7-40 U/L Alkaline Phosphatase 148 H 46-116 U/L Ammonia 15 11-32 umol/L Total Protein 6.6 5.7-8.2 g/dL Albumin 3.9 3.2-4.8 g/dL Lipase 46 12-53 U/L Assessment/Plan Assessment/Plan Hypoxia Right lobe pneumonia Leukocytosis Anemia, Chronic Hx lymphoma Plan Admit to telemetry Consult pulmonology. Bronchodilators. As needed supplemental O2 to maintain O2 saturation greater Than 93%. RT monitoring IV ABX, IVF Blood cultures, influenza & Covid swab pending Consult Oncology for continued care Monitor CBC As needed antipyretics / analgesia GI ppx pepcid / DVT ppx SCD Plan discussed with: Patient My Orders Orders - VALERI MICHAEL NP Procedure Category Date Status Time Admit ADMIT 11/18/24 Transmitted 03:56 Code Status CODE 11/18/24 Transmitted 03:56 Vital Signs [facility] 11/18/24 In Process 03:56 Review Orders With [facility] 11/18/24 In Process Adm. 03:56 Encourage Activity As [facility] 11/18/24 In Process Tolerate 03:56 Consistent DIET 11/18/24 Transmitted Carb(Ccho)Diabetes Breakfast Sodium Chloride 0.9% PHA 11/18/24 In Process 04:00 Oxygen By Face Mask RT 11/18/24 Transmitted 03:56 Docusate Sodium PHA 11/18/24 In Process Capsule (Colace 04:00 Acetaminophen Tablet PHA 11/18/24 In Process (Tylenol Tablet) 04:00 Notify Of Changes [facility] 11/18/24 In Process From Base 03:56 Advance Directive [facility] 11/18/24 In Process 03:56 Patient Condition ORDERS 11/18/24 Transmitted 03:56 Allergies [facility] 11/18/24 In Process 03:56 Hydrocodone-Acet PHA 11/18/24 In Process 5/325mg Tab ([place] 04:00 Ondansetron Hcl PHA 11/18/24 In Process (Zofran) 04:00 Sequential [facility] 11/18/24 In Process Compression Device Nitroglycerin PHA 11/18/24 In Process Sublingual (Ntrostat 04:00 Morphine Sulfate PHA 11/18/24 In Process Injection 04:00 Stat Ekg For Chest [facility] 11/18/24 In Process Pain 03:56 Notify Of Changes [facility] 11/18/24 In Process From Base 03:56 Engineering Director For [facility] 11/18/24 In Process 24 Hours 03:56 Emergency Dysrhythmia [facility] 11/18/24 In Process Protocol 03:56 Rhythm Strips Once [facility] 11/18/24 In Process Every Shift 03:56 Oxygen By Nasal RT 11/18/24 Transmitted Cannula 03:56 *Consult CONS 11/18/24 Transmitted / 03:56 * Hematology/Oncology CONS 11/18/24 Transmitted Consult 03:56 Rapid Influenza A&B LAB 11/18/24 Logged 03:56 Covid19 Antigen Ban LAB 11/18/24 Logged Complete Blood Count LAB 11/18/24 Logged 05:00 Complete Blood Count LAB 11/19/24 Verified 05:00 Complete Blood Count LAB 11/20/24 Verified 05:00 Complete Blood Count LAB 11/21/24 Verified 05:00 Complete Blood Count LAB 11/22/24 Verified 05:00 Basic Metabolic Panel LAB 11/18/24 Logged 05:00 Basic Metabolic Panel LAB 11/19/24 Verified 05:00 Basic Metabolic Panel LAB 11/20/24 Verified 05:00 Basic Metabolic Panel LAB 11/21/24 Verified 05:00 Basic Metabolic Panel LAB 11/22/24 Verified 05:00 Albuterol Medneb PHA 11/18/24 In Process (Ventolin Medneb) 06:00 Ipratropium Medneb PHA 11/18/24 In Process (Atrovent Medneb) 06:00 Blood Culture OLMAN 11/18/24 Logged 04:21 Azithromycin 500mg/ PHA 11/19/24 In Process 250ml (Zithromax 50 10:00 Ceftriaxone 1gm/50ml PHA 11/19/24 In Process D5w (Rocephin) 10:00 Date of Service: Nov 18, 2024 Billing Provider: LATA ACUNA MD Common Visit Codes: NOT BILLABLE LATA ACUNA MD 11/18/24 1751: Review of Systems Allergies: Coded Allergies: NO KNOWN ALLERGIES (Unverified , 07/01/24) Assessment/Plan Assessment/Plan Patient's chart is reviewed and discussed with the nurse practitioner. Patient is seen evaluated and admitted by nurse practitioner this morning. I agree with his evaluation, documentation, assessment and care plan as outlined. Plan discussed with: Other VALERI MICHAEL NP Nov 18, 2024 04:26 LATA ACUNA MD Nov 18, 2024 17:51
[2024-11-18 04:38] LABS: Mean Corpuscular Volume 94.3 fL (80.0-100.0)
[2024-11-18 04:40] LABS: Hematocrit 22.5 % (36.0-46.0); Hemoglobin 7.4 g/dL (12.2-16.2); Mean Corpuscular Hgb Conc. 32.9 g/dL (32.0-36.0); Platelet Count (auto) 103 10^3/uL (140-450); Red Blood Cells 2.39 10^6/uL (4.0-5.20); Red Cell Distribution Width 17.4 % (11.8-14.3); White Blood Cell 29.1 10^3/uL (4.4-10.8)
[2024-11-18 04:53] LABS: Band Neutrophils % (manual) 0; Basophils % (manual) 0 (0.0-2.0); Blast Cells 0; Eosinophils % (manual) 0 (0-7); Metamyelocytes % 0; Myelocytes % 0; Promyelocytes % 0
[2024-11-18 05:06] LABS: Chloride 101 mmol/L (98-107); Potassium 4.2 mmol/L (3.5-5.1)
[2024-11-18 05:07] LABS: Anion Gap 6 (5-15); Calcium 9.2 mg/dL (8.7-10.4); Carbon Dioxide 23 mmol/L (20-31)
[2024-11-18 05:10] LABS: COVID19 ANTIGEN SOFIA FIA NEGATIVE (NEGATIVE); Rapid Influenza A Negative (Negative); Rapid Influenza B Negative (Negative)
[2024-11-18 05:12] LABS: BUN/Creatinine Ratio 36.1 (10.0-20.0); Blood Urea Nitrogen 22 mg/dL (9-23)
[2024-11-18 05:15] LABS: Glucose 148 mg/dL (74-106); Sodium 130 mmol/L (136-145)
[2024-11-18 06:28] LABS: Lymphocytes % (manual) 74 (10.0-50.0); Monocytes % (manual) 2 (0-12)
[2024-11-18 06:29] LABS: Platelet Estimate Decreased; Reactive Lymphocytes 2
[2024-11-18] MEDS: ALBUTEROL SULF 2.5 MG/0.5ML(0.5%) NEB SOLN NEB SCH ×2 (06:54→20:01)
[2024-11-18] MEDS: IPRATROPIUM BROM 0.5 MG/2.5ML INH SOL NEB SCH ×2 (06:55→20:01)
[2024-11-18] MEDS: ACETAMINOPHEN 325 MG TAB PO PRN (08:15)
--- NOTE | 2024-11-18 09:15 | DVH ---
CLINICAL INFORMATION: 69 years old, Female; Pneumonia. TECHNIQUE: Frontal and lateral chest radiographs were obtained. COMPARISON: Radiograph dated 11/13/2024. FINDINGS: Lungs: Small right pleural effusion with overlying atelectasis and consolidation. Atelectasis and con solidation also seen in the left lung base. Cardiac: Heart size is within normal limits. Pulmonary vasculature: Mildly prominent pulmonary vasculature. Mediastinum/joel: Within normal limits. Bones: No evidence of acute osseous abnormality. Other: No other significant finding. IMPRESSION: Small right pleural effusion with overlying atelectasis, and consolidation atelectasis and consolidat ion in the left lung base, new compared to the prior radiograph.
[2024-11-18] MEDS ORDERED: ENOXAPARIN SOD 40 MG/0.4 ML SYRINGE SC SCH (10:00)
[2024-11-18 10:03] LABS: Urine Bacteria None Seen /hpf (None Seen)
[2024-11-18] MEDS: FAMOTIDINE (10MG/ML) 2ML VL IV SCH (10:34)
[2024-11-18 11:12] LABS: Urine Blood Negative /uL (Negative); Urine Budding Yeast OCCASIONAL /hpf (None Seen); Urine Clarity Turbid (Clear); Urine Color Yellow (Yellow); Urine Mucus FEW (None Seen); Urine Protein, UAD 2+ (Negative); Urine Squamous Epithelial Cell FEW /hpf (<5); Urine Urobilinogen Normal (Negative); Urine WBC 3 /HPF (0-5)
[2024-11-18] MEDS: HYDROcodone-ACET 5/325MG TAB PO PRN (12:02)
--- NOTE | 2024-11-18 20:16 | DVHINCON2 ---
Date of service: Nov 18, 2024 Referring Physician ADINA Winters Reason for Consultation Pleural effusion, acute hypoxic respiratory failure History of Present Illness 69-year-old woman history of lymphoma, enlarged liver who presented with a chief complaint of mid lower back pain that started two days ago. She had a chest x- ray performed that demonstrated a pleural effusion and consolidation left lung base. Patient was having shortness of breath this afternoon. She was in respiratory distress. A stat Pulmonary consultation is called due to acute hypoxic respiratory failure, respiratory distress and pleural effusion and pneumonia. Review of systems: Unable to obtain due to patient's respiratory distress. Past medical history: Lymphoma, enlarged liver, Past surgical history: None mentioned in prior surgeries. Medications: Reviewed Allergies: No known drug allergies. Family history: No family history of premature CAD. No family history of lung disease Social history: Nonsmoker. No alcohol use. Marijuana use. Lives at home. Allergies: Coded Allergies: NO KNOWN ALLERGIES (Unverified , 07/01/24) Home Meds Active Scripts Lactulose (Lactulose) 10 Gm Sami, 10 GM PO DAILYP PRN for 3 Days, #3 PACK Prov:ANKITA PERRY MD 08/10/24 Current Medications Current Medications Medications (Trade) Dose Ordered Sig/Aida Route PRN Reason Start Time Stop Time Status Last Admin Sodium Chloride 1,000 ml @ 100 mls/hr Q10H IV 11/18/24 04:00 11/18/24 14:00 Docusate Sodium (Colace Capsule) 100 mg BIDPRN PRN PO FOR CONSTIPATION 11/18/24 04:00 Acetaminophen (Tylenol Tablet) 650 mg Q6HP PRN PO PAIN SCALE 1-3 OR TEMP>100.4 11/18/24 04:00 11/18/24 08:15 Acetaminophen/ Hydrocodone Bitart (Two Dot 5/325MG Tab) 1 tab Q6HPRN PRN PO MODERATE PAIN (4-6 PAIN SCALE) 11/18/24 04:00 11/18/24 18:54 Ondansetron HCl (Zofran) 4 mg Q4HP PRN IV NAUSEA / VOMITING 11/18/24 04:00 Enoxaparin Sodium (Lovenox) 40 mg DAILY SC 11/18/24 10:00 11/18/24 04:25 DC Nitroglycerin (Ntrostat Sublingual) 0.4 mg Q5MINP PRN SL FOR CHEST PAIN 11/18/24 04:00 Morphine Sulfate 2 mg Q30M PRN IV FOR CHEST PAIN 11/18/24 04:00 Ceftriaxone Sodium 50 ml @ 100 mls/hr DAILY IV 11/19/24 10:00 Azithromycin 250 ml @ 125 mls/hr DAILY IV 11/19/24 10:00 Albuterol (Ventolin Medneb) 2.5 mg Q4HWA [facility] [place] 11/18/24 06:00 11/18/24 17:53 DC 11/18/24 13:22 Ipratropium [place] (Atrovent Medneb) 0.5 mg Q4HWA [facility] [place] 11/18/24 06:00 11/18/24 17:53 DC 11/18/24 13:22 Famotidine (Pepcid Injection) 20 mg DAILY IV 11/18/24 10:00 11/18/24 10:34 Albuterol (Ventolin Medneb) 2.5 mg Q6HWA [facility] [place] 11/18/24 18:00 11/18/24 20:01 Ipratropium [place] (Atrovent Medneb) 0.5 mg Q6HWA [facility] [place] 11/18/24 18:00 11/18/24 20:01 Vital Signs Vital Signs Date Time Temp Pulse Resp B/P (MAP) Pulse Ox O2 Delivery O2 Flow Rate FiO2 11/18/24 19:30 133 49 95 Nasal Cannula* 2 28 11/18/24 19:30 98.1 133/71 (91) 98.1 Physical Exam Gen.: Patient lying in bed in apparent distress. On supplemental oxygen. Head: Normocephalic, atraumatic Eyes: EOMI/PERRLA. Ears: Normal hearing. Normal anatomy. Neck/trachea: Trachea midline, supple. Nose: Normal external anatomy. Mouth: Moist mucous membranes. Chest: Decreased air entry bilaterally. No wheezing . Bibasilar rhonchi. Cardio vascular: Positive S1, positive S2. Regular rate and rhythm. Abdomen: Positive bowel sounds in all 4 quadrants. Soft, non-tender, non- distended. : Deferred. Rectal: Deferred Skin: Warm, dry. Intact Extremities: 2+ radial pulses bilaterally. No lower extremity edema. Neuro: Awake, alert. No gross motor or sensory deficits. Cranial nerves II through XII intact. Gait not assessed. Labs/Diagnostic Data Labs Test 11/18/24 09:59 11/18/24 04:24 11/18/24 04:17 11/18/24 02:31 Range/Units Urine Color Yellow Yellow Urine Clarity Turbid H Clear Urine pH 6.0 5.0-9.0 Urine Specific [place] 1.030 1.001-1.035 Urine Protein 2+ H Negative Urine Ketones Negative Negative Urine Blood Negative Negative /uL Urine Nitrite Negative Negative Urine Bilirubin Negative Negative Urine Urobilinogen Normal Negative mg/dL Urine Leukocyte Esterase Negative Negative /uL Urine RBC 4 0 - 4 /hpf Urine Microscopic WBC 3 0-5 /HPF Urine Squamous Epithelial Cells Few <5 /hpf Urine Bacteria None seen None Seen /hpf Urine Mucus Few None Seen Urine Yeast (Budding) Occasional None Seen /hpf Urine Glucose Normal Normal mg/dL White Blood Count 29.1 H 4.4-10.8 10^3/uL Red Blood Count 2.39 L 4.0-5.20 10^6/uL Hemoglobin 7.4 L 12.2-16.2 g/dL Hematocrit 22.5 #L 36.0-46.0 % Mean Corpuscular Volume 94.3 80.0-100.0 fL Mean Corpuscular Hemoglobin 31.0 28.0-32.0 pg Mean Corpuscular Hemoglobin Concent 32.9 32.0-36.0 g/dL Red Cell Distribution Width 17.4 H 11.8-14.3 % Platelet Count 103 L 140-450 10^3/uL Mean Platelet Volume 7.7 6.9-10.8 fL Neutrophils (%) (Auto) 37.0-80.0 % Lymphocytes (%) (Auto) 10.0-50.0 % Monocytes (%) (Auto) 0.0-12.0 % Basophils (%) (Auto) 0.0-2.0 % Neutrophils # (Auto) 1.6-8.6 10 ^3/uL Lymphocytes # (Auto) 0.4-5.4 10 ^3/uL Monocytes # (Auto) 0-1.3 10 ^3/uL Differential Total Cells Counted 100.0 100 Neutrophils % (Manual) 22 L 37.0-80.0 Band Neutrophils % (Manual) 0 Lymphocytes % (Manual) 74 H 10.0-50.0 Monocytes % (Manual) 2 0-12 Eosinophils % (Manual) 0 0-7 Basophils % (Manual) 0 0.0-2.0 Metamyelocytes % (manual) 0 Myelocytes % (Manual) 0 Promyelocytes % (Manual) 0 Blast Cells % (Manual) 0 Reactive Lymphocytes 2 Platelet Estimate Decreased Sodium Level 130 L 136-145 mmol/L Potassium Level 4.2 3.5-5.1 mmol/L Chloride Level 101 98-107 mmol/L Carbon Dioxide Level 23 20-31 mmol/L Anion Gap 6 5-15 Blood Urea Nitrogen 22 9-23 mg/dL Creatinine 0.61 0.550-1.02 mg/dL Glomerular Filtration Rate Calc 97 >90 mL/min BUN/Creatinine Ratio 36.1 H 10.0-20.0 Serum Glucose 148 H 74-106 mg/dL Calcium Level 9.2 8.7-10.4 mg/dL Thyroid Stimulating Hormone (TSH) 2.57 0.55-4.78 uIU/mL Free Thyroxine (T4) Calculated 1.26 0.89-1.76 ng/dL Influenza Type A Antigen Negative Negative Influenza Type B Antigen Negative Negative SARS-CoV-2 Antigen (Rapid) Negative NEGATIVE Lactic Acid Level 1.0 0.4-2.0 mmol/L Test 11/17/24 19:55 Range/Units Smudge Cells 12 /100 WBC Stomatocytes Few Total Bilirubin 0.6 0.2-1.0 mg/dL Aspartate Amino Transferase (AST) 28 13-40 U/L Alanine Aminotransferase (ALT) 11 7-40 U/L Alkaline Phosphatase 148 H 46-116 U/L Ammonia 15 11-32 umol/L Total Protein 6.6 5.7-8.2 g/dL Albumin 3.9 3.2-4.8 g/dL Lipase 46 12-53 U/L Assessment Impression: Multifocal pneumonia Acute hypoxic respiratory failure Pleural effusion Atelectasis Lymphoma Plan: CT abdomen and pelvis demonstrates multifocal pneumonia throughout the right lung. Trace right pleural effusion. Atelectasis. Hepatomegaly. Supplemental oxygen line keep O2 saturation above 92%. Stat BiPAP Stat ABG Stat chest x-ray Continue antibiotics Send sputum for Gram stain and culture. Continue bronchodilators GI prophylaxis-Pepcid DVT prophylaxis-Lovenox Condition: Critical Prognosis: Poor given multiple comorbidities. Rest of plan per hospitalist and other consultants. A total of 35 minutes of critical care time was spent reviewing the patient record, examining the patient, making a diagnostic and therapeutic plan, discussing this plan with the medical personnel, following up on diagnostic studies and following the patient for clinical stability excluding any and all procedures. At least 50% of this time was spent in direct, [id number] contact. Thank you ADINA Winters for allowing me to participate in this patient's care. Further recommendations will depend on patient's clinical course. Please do not hesitate to contact me if you have any questions or concerns. This medical document was created using an electronic medical record system with [employer] dictation system. Although this document has been carefully reviewed, there may still be some phonetic and typographical errors. These areas are purely typographical due to imperfections of the software programs, and do not reflect any compromise in the patient's medical care. Plan discussed with: Patient, Other (FAITH Roque, RT, SHIPPING WEIGHER) JUAN DIEGO GOLDSTEIN MD Nov 18, 2024 20:16
--- NOTE | 2024-11-18 20:26 | DVH ---
CHEST RADIOGRAPH Indication: Dyspnea Technique: Frontal and lateral chest radiographs were obtained. Comparison: XY CHEST TWO VIEWS ROUTINE on DOS: 11/18/24 FINDINGS: Lungs: Small right pleural effusion with overlying atelectasis and consolidation. Atelectasis and con solidation also seen in the left lung base. Cardiac: Heart size is within normal limits. Pulmonary vasculature: Mildly prominent pulmonary vasculature. Mediastinum/joel: Within normal limits. Bones: No evidence of acute osseous abnormality. Other: No other significant finding. IMPRESSION: Small right pleural effusion with overlying atelectasis, and consolidation atelectasis and consolidat ion in the left lung base, new compared to the prior radiograph.
[2024-11-19] VITALS (8 sets, daily range): PULSE 105–120; RESP 16–25; O2SAT 98–100
[2024-11-19 00:17] LABS: Base Excess -0.4 mmol/L (-2.0-3.0)
[2024-11-19 07:04] LABS: Chloride 103 mmol/L (98-107); Potassium 4.4 mmol/L (3.5-5.1)
[2024-11-19 07:05] LABS: Anion Gap 5 (5-15); Calcium 9.2 mg/dL (8.7-10.4); Carbon Dioxide 25 mmol/L (20-31)
[2024-11-19 07:10] LABS: BUN/Creatinine Ratio 32.7 (10.0-20.0); Blood Urea Nitrogen 17 mg/dL (9-23); Glucose 97 mg/dL (74-106)
[2024-11-19 07:20] LABS: Hemoglobin 7.4 g/dL (12.2-16.2)
[2024-11-19 07:23] LABS: Hematocrit 23.3 % (36.0-46.0); Mean Corpuscular Hemoglobin 29.9 pg (28.0-32.0); Mean Corpuscular Hgb Conc. 31.7 g/dL (32.0-36.0); Mean Corpuscular Volume 94.2 fL (80.0-100.0); Platelet Count (auto) 103 10^3/uL (140-450); Red Blood Cells 2.47 10^6/uL (4.0-5.20); Red Cell Distribution Width 17.1 % (11.8-14.3)
[2024-11-19 07:25] LABS: Sodium 133 mmol/L (136-145)
[2024-11-19 07:36] LABS: Basophils % (manual) 0 (0.0-2.0); Blast Cells 0; Eosinophils % (manual) 0 (0-7); Metamyelocytes % 0; Monocytes % (manual) 0 (0-12); Myelocytes % 0; Promyelocytes % 0
[2024-11-19 08:31] LABS: Band Neutrophils % (manual) 1; Lymphocytes % (manual) 66 (10.0-50.0); Platelet Estimate Decreased; Reactive Lymphocytes 3
[2024-11-19] MEDS: cefTRIAXone 1GM/50ML D5W 50 ML IV SCH (11:01)
[2024-11-19] MEDS: AZITHROMYCIN 500MG/ 250ML 250 ML IV SCH (11:30)
[2024-11-19] MEDS: FUROSEMIDE 40 MG/4 ML VIAL IV ONE (11:44)
--- NOTE | 2024-11-19 13:28 | DVHPN2 ---
Progress Note - Dictate Date Seen: Nov 19, 2024 Medical Necessity Reason Pt with a Central, PICC or Fol: No Subjective Patient required BiPAP overnight. Contrast is on 4 L of oxygen via nasal cannula. She says feels better per having some dry cough. vital signs Vital Sign Date Time Temp Pulse Resp B/P (MAP) Pulse Ox O2 Delivery O2 Flow Rate FiO2 11/19/24 12:00 107 11/19/24 11:44 119/64 11/19/24 11:18 21 100 11/19/24 11:12 Nasal Cannula* 2 28 11/18/24 19:30 98.1 98.1 Total Intake and Output 11/18/24 11/18/24 11/19/24 15:00 23:00 07:00 Intake Total 700 ml 800 ml 700 ml Balance 700 ml 800 ml 700 ml medications Current Medications Medications Dose Ordered Sig/Aida Route Start Time Stop Time Status Last Admin Dose Admin Sodium Chloride 1,000 ml @ 100 mls/hr Q10H IV 11/18/24 04:00 11/19/24 00:15 100 MLS/HR Docusate Sodium 100 mg BIDPRN PRN PO 11/18/24 04:00 Acetaminophen 650 mg Q6HP PRN PO 11/18/24 04:00 11/18/24 23:26 650 MG Acetaminophen/ Hydrocodone Bitart 1 tab Q6HPRN PRN PO 11/18/24 04:00 11/19/24 11:01 1 TAB Ondansetron HCl 4 mg Q4HP PRN IV 11/18/24 04:00 Nitroglycerin 0.4 mg Q5MINP PRN SL 11/18/24 04:00 Morphine Sulfate 2 mg Q30M PRN IV 11/18/24 04:00 Ceftriaxone Sodium 50 ml @ 100 mls/hr DAILY IV 11/19/24 10:00 11/19/24 11:01 100 MLS/HR Azithromycin 250 ml @ 125 mls/hr DAILY IV 11/19/24 10:00 11/19/24 11:30 125 MLS/HR Famotidine 20 mg DAILY IV 11/18/24 10:00 11/19/24 11:01 20 MG Albuterol 2.5 mg Q6HWA NEB 11/18/24 18:00 11/19/24 11:12 2.5 MG Ipratropium [place] 0.5 mg Q6HWA NEB 11/18/24 18:00 11/19/24 11:12 0.5 MG objective Alert awake oriented x3. HEENT neck supple no liver Jevity. Heart is regular rate and rhythm S1 plus S2. Lungs very murmur with a dextrose breath sounds at the bases and few rhonchi at the bases. No audible wheezing heard. Chest equal expansion. Abdomen is soft nontender positive bowel sounds. Extremities trace edema around the ankles. Positive pulses. laboratory and microbiology Laboratory Tests 11/19/24 05:54 Test 11/19/24 05:54 Range/Units Serum Glucose 97 74-106 mg/dL Assessment/Plan I will stop the IV fluids given a shortness of breaths with ankle edema. We will order an echocardiogram. We will give her IV Lasix with potassium supplementation. Continue current antibiotics and breathing treatments. Physical therapy evaluation. Continue rest of supportive care and treatment. Following management for clinical course and recommendations from the consultants. Discussed with the salvage mend worker to Dr. Armas regarding care plan as well. Problems(with codes): (1) Multifocal pneumonia (2) Shortness of breath (3) Lymphoma (4) Weakness Plan discussed with: Patient, Other LATA ACUNA MD Nov 19, 2024 13:28
--- NOTE | 2024-11-19 15:41 | DVHSR ---
APPROVED REPORT EXAM: Two-dimensional and M-mode echocardiogram with Doppler and color Doppler. Blood Pressure: 119/64 mmHg INDICATION CHF RISK FACTORS Height: 60, Weight: 140 DIMENSIONS LVDd4.3 (3.8-5.7cm)LA (2D)3.6 (1.9-4.0cm)Aortic Root3.4 (2.0-3.7cm) LVDs2.6 (2.5-4.0cm)LA (MM) (1.9-4.0cm)Aortic Cusp Exc1.6 (1.5-2.0cm) EF (%) 70.0 (55-70%)Rt. Atrium4.4 (1.9-4.0cm)Asc. Aorta cm IVSd1.1 (0.7-1.1cm)RV (D) (1.8-2.4cm) PWd1.0 (0.7-1.1cm) Mitral Valve MitralMitral Stenosis E wave0.92m/sMV Mean GR.mmHg A wave0.82m/sMV Peak GR.95mmHg E/A ratio1.12D MVAcm2 DECEL [id number] 1/2 [id number] IVRTmsDop MVA4.49cm2 Aortic Valve Aortic ValveAortic Stenosis V10.96m/Betty Mean GR.4mmHg V21.41m/Betty Peak GR.8mmHg LVOT Diameter2.0 (1.8-2.4cm)Doppler AVA2.14cm2 Pulmonic Valve V20.86m/s Tricuspid Valve TR Velocity2.89m/s [id number] Conclusion lvef 55% by visual estimate moderate LVH small pericardial effusion noted no hemodynamic compromise mild tricuspid regurg
[2024-11-19] MEDS: FUROSEMIDE 20 MG/2 ML VIAL IV SCH (18:53)
--- NOTE | 2024-11-19 19:57 | DVHPN2 ---
Progress Note - Dictate Date Seen: Nov 19, 2024 Medical Necessity Reason Pt with a Central, PICC or Fol: No Subjective Patient seen and examined at bedside. Remains on supplemental oxygen Overnight events reviewed. vital signs Vital Sign Date Time Temp Pulse Resp B/P (MAP) Pulse Ox O2 Delivery O2 Flow Rate FiO2 11/19/24 18:53 121/59 11/19/24 16:05 120 11/19/24 13:00 25 98 11/19/24 11:12 Nasal Cannula* 2 28 11/18/24 19:30 98.1 98.1 Total Intake and Output 11/18/24 11/18/24 11/19/24 15:00 23:00 07:00 Intake Total 700 ml 800 ml 700 ml Balance 700 ml 800 ml 700 ml medications Current Medications Medications Dose Ordered Sig/Aida Route Start Time Stop Time Status Last Admin Dose Admin Docusate Sodium 100 mg BIDPRN PRN PO 11/18/24 04:00 Acetaminophen 650 mg Q6HP PRN PO 11/18/24 04:00 11/18/24 23:26 650 MG Acetaminophen/ Hydrocodone Bitart 1 tab Q6HPRN PRN PO 11/18/24 04:00 11/19/24 18:57 1 TAB Ondansetron HCl 4 mg Q4HP PRN IV 11/18/24 04:00 Nitroglycerin 0.4 mg Q5MINP PRN SL 11/18/24 04:00 Morphine Sulfate 2 mg Q30M PRN IV 11/18/24 04:00 Ceftriaxone Sodium 50 ml @ 100 mls/hr DAILY IV 11/19/24 10:00 11/19/24 11:01 100 MLS/HR Azithromycin 250 ml @ 125 mls/hr DAILY IV 11/19/24 10:00 11/19/24 11:30 125 MLS/HR Albuterol 2.5 mg Q6HWA NEB 11/18/24 18:00 11/19/24 11:12 2.5 MG Ipratropium [place] 0.5 mg Q6HWA NEB 11/18/24 18:00 11/19/24 11:12 0.5 MG Furosemide 20 mg BIDD IV 11/19/24 18:00 11/19/24 18:53 20 MG Potassium Chloride 10 meq BID PO 11/19/24 22:00 objective Gen.: Patient lying in bed in no apparent distress. On supplemental oxygen. Head: Normocephalic, atraumatic. Eyes: EOMI/PERRLA. Ears: Normal hearing. Normal anatomy. Neck/trachea: Trachea midline, supple. Nose: Normal external anatomy. Mouth: Moist mucous membranes. Chest: Decreased air entry bilaterally. Bilateral crackles present. No wheezing or rhonchi. Cardiovascular: Positive S1, positive S2. Regular rate and rhythm. Abdomen: Positive bowel sounds in all 4 quadrants. Soft, non-tender, non- distended. : Deferred. Rectal: Deferred. Skin: Warm, dry. Intact. Extremities: 2+ radial pulses bilaterally. No lower extremity edema. Neuro: Awake, alert, oriented x3. No gross motor or sensory deficits. Cranial nerves II through XII intact. Gait not assessed. laboratory and microbiology Laboratory Tests 11/19/24 05:54 Test 11/19/24 05:54 Range/Units Serum Glucose 97 74-106 mg/dL Assessment/Plan Impression: Multifocal pneumonia Acute hypoxic respiratory failure Pleural effusion Atelectasis Lymphoma Events: Remains on supplemental oxygen, 2 LPM NC Taper O2 as tolerated BiPAP PRN. ABG notable for alkalemia Continue bronchodilators Continue antibiotics Incentive spirometry Stop IV fluids. Lasix 40 mg IVP STAT. Labs and imaging reviewed. Rest of plan as noted below. Plan: CT abdomen and pelvis demonstrates multifocal pneumonia throughout the right lung. Trace right pleural effusion. Atelectasis. Hepatomegaly. Supplemental oxygen keep O2 saturation above 92%. BiPAP PRN Continue antibiotics Send sputum for Gram stain and culture. Continue bronchodilators GI prophylaxis-Pepcid DVT prophylaxis-Lovenox Prognosis: Guarded given multiple comorbidities. Rest of plan per hospitalist and other consultants. Thank you ADINA Winters for allowing me to participate in this patient's care. Further recommendations will depend on patient's clinical course. Please do not hesitate to contact me if you have any questions or concerns. This medical document was created using an electronic medical record system with [employer] system. Although this document has been carefully reviewed, there may still be some phonetic and typographical errors. These areas are purely typographical due to imperfections of the software programs, and do not reflect any compromise in the patient's medical care. Plan discussed with: Patient, Other (JUAN DIEGO Dasilva MD Nov 19, 2024 19:57
[2024-11-19] MEDS: POTASSIUM CHL 10 Meq TABLET PO SCH (23:09)
[2024-11-20] VITALS (13 sets, daily range): BP systolic 105–130; BP diastolic 60–83; PULSE 102–117; RESP 16–22; TEMP 97.7–98.4; O2SAT 94–100
[2024-11-20 05:56] LABS: White Blood Cell 21.4 10^3/uL (4.4-10.8)
[2024-11-20 06:00] LABS: Hematocrit 21.8 % (36.0-46.0); Hemoglobin 7.1 g/dL (12.2-16.2); Mean Corpuscular Hemoglobin 30.2 pg (28.0-32.0); Mean Corpuscular Hgb Conc. 32.5 g/dL (32.0-36.0); Mean Corpuscular Volume 93.1 fL (80.0-100.0); Platelet Count (auto) 116 10^3/uL (140-450); Red Blood Cells 2.34 10^6/uL (4.0-5.20); Red Cell Distribution Width 17.2 % (11.8-14.3)
[2024-11-20 06:05] LABS: Basophils % (manual) 0 (0.0-2.0); Blast Cells 0; Eosinophils % (manual) 0 (0-7); Metamyelocytes % 0; Myelocytes % 0; Promyelocytes % 0
[2024-11-20 06:08] LABS: Chloride 102 mmol/L (98-107); Potassium 4.4 mmol/L (3.5-5.1)
[2024-11-20 06:09] LABS: Anion Gap 5 (5-15); Calcium 9.3 mg/dL (8.7-10.4); Carbon Dioxide 27 mmol/L (20-31)
[2024-11-20 06:14] LABS: BUN/Creatinine Ratio 36.5 (10.0-20.0); Blood Urea Nitrogen 19 mg/dL (9-23)
[2024-11-20 06:24] LABS: Glucose 113 mg/dL (74-106); Sodium 134 mmol/L (136-145)
[2024-11-20 06:43] LABS: Band Neutrophils % (manual) 1; Lymphocytes % (manual) 77 (10.0-50.0); Monocytes % (manual) 4 (0-12); Reactive Lymphocytes 2
[2024-11-20 06:45] LABS: Platelet Estimate Decreased
[2024-11-20] MEDS ORDERED: FER325T PO (10:33)
[2024-11-20] MEDS ORDERED: ACYC400T16 PO (10:33)
[2024-11-20] MEDS ORDERED: DOCU-94 PO (10:33)
[2024-11-20] MEDS ORDERED: ALLO300T2 PO (10:33)
--- NOTE | 2024-11-20 13:00 | DVHPN2 ---
Progress Note - Dictate Date Seen: Nov 20, 2024 Medical Necessity Reason Pt with a Central, PICC or Fol: No Subjective She was on 2-3 L of oxygen via nasal cannula feeling better however hours says gets short of breath with activity/ambulation. vital signs Vital Sign Date Time Temp Pulse Resp B/P (MAP) Pulse Ox O2 Delivery O2 Flow Rate FiO2 11/20/24 12:38 107 18 100 11/20/24 12:31 Room Air* 0 21 11/20/24 10:13 97.7 115/60 (78) 97.7 Total Intake and Output 11/19/24 11/19/24 11/20/24 15:00 23:00 07:00 Intake Total 150 ml Balance 150 ml medications Current Medications Medications Dose Ordered Sig/Aida Route Start Time Stop Time Status Last Admin Dose Admin Docusate Sodium 100 mg BIDPRN PRN PO 11/18/24 04:00 Acetaminophen 650 mg Q6HP PRN PO 11/18/24 04:00 11/18/24 23:26 650 MG Acetaminophen/ Hydrocodone Bitart 1 tab Q6HPRN PRN PO 11/18/24 04:00 11/20/24 06:36 1 TAB Ondansetron HCl 4 mg Q4HP PRN IV 11/18/24 04:00 Nitroglycerin 0.4 mg Q5MINP PRN SL 11/18/24 04:00 Morphine Sulfate 2 mg Q30M PRN IV 11/18/24 04:00 Ceftriaxone Sodium 50 ml @ 100 mls/hr DAILY IV 11/19/24 10:00 11/20/24 11:03 100 MLS/HR Azithromycin 250 ml @ 125 mls/hr DAILY IV 11/19/24 10:00 11/19/24 11:30 125 MLS/HR Albuterol 2.5 mg Q6HWA NEB 11/18/24 18:00 11/20/24 12:31 2.5 MG Ipratropium [place] 0.5 mg Q6HWA NEB 11/18/24 18:00 11/20/24 12:31 0.5 MG Furosemide 20 mg BIDD IV 11/19/24 18:00 11/20/24 06:37 20 MG Potassium Chloride 10 meq BID PO 11/19/24 22:00 11/20/24 11:05 10 MEQ objective Alert awake oriented x3. HEENT neck supple no liver Jevity. Heart is regular rate and rhythm S1 plus S2. Lungs fair air movement without any audible wheezing or rales. Chest equal expansion. Abdomen is soft nontender positive bowel sounds. Extremities trace edema around the ankles. Positive pulses. laboratory and microbiology Laboratory Tests 11/20/24 05:08 Test 11/20/24 05:08 Range/Units Serum Glucose 113 H 74-106 mg/dL Assessment/Plan Given the exertional dyspnea with underlying malignancy I will order a CT angiogram of the chest to rule out PE today. Otherwise continue current antibiotics breathing treatments and oxygen. Monitor her overnight. Otherwise follow clinical management per clinical course and pending evaluations. Discussed with the nurse and patient at bedside regarding care plan. Problems(with codes): (1) Weakness (2) Lymphoma (3) Shortness of breath (4) Multifocal pneumonia Plan discussed with: Patient, Other LATA ACUNA MD Nov 20, 2024 13:00
[2024-11-20] MEDS ORDERED: IOHEXOL 350 MG/ML 100ML IJ ONE (16:30)
--- NOTE | 2024-11-20 17:34 | DVH ---
PROCEDURE: CT CT ANGIO CHEST CONTRAST 11/20/2024 04:53 PM INDICATION: sob COMPARISON: Chest radiograph dated 11/18/2024, abdominal CT scan dated 11/17/2024 TECHNIQUE: Coverage: Thorax IV contrast: Administered Phases: Arterial Multiplanar 3-D Maximum Intensity Projection images (MIP) reconstructions were created by the techngeneva bowie in the coronal and sagittal planes as part of the CT angiography protocol. Adverse events: None Medication laboratory values were reviewed to verify the patient meets criteria for contrast administ ration. All CT scans at this medical facility are performed using dose modulation techniques as appropriate t o a performed exam including the following: Automated exposure control was utilized; adjustment of th e MA and/or KV according to patient size; and use of iterative reconstruction technique. Radiation dose: CTDIvol 6.39 mGy, DLP 249.72 mGy*cm. FINDINGS: Cardiovascular: No evidence of acute or chronic pulmonary emboli identified. Aorta is normal in calib er. The heart is normal in size. Lungs: Small bilateral pleural effusions with adjacent compressive atelectasis and moderate scattered bilateral pulmonary opacities noted. No pneumothorax. The airways are patent. Thyroid: Small calcified right thyroid lobe nodule. Esophagus: Unremarkable. Lymphatics: No hilar or mediastinal lymphadenopathy. Bones/soft tissues: No acute abnormality. Upper abdomen: Massive splenomegaly occupying the left upper hemiabdomen with mass effect on the left kidney which is squeezed between posterior spleen and posterior abdominal wall. Periportal soft tiss ue fullness extending to retroperitoneal region likely lymphadenopathy. Other: None. IMPRESSION: 1. No evidence of acute pulmonary emboli. 2. Interval development of small bilateral pleural effusions worsening moderate bilateral pulmonary o pacities that may represent pneumonia or edema. Recommend clinical and biochemical correlation. 3. Stable upper abdominal findings with massive splenomegaly and periportal soft tissue fullness exte nding to retroperitoneal region likely lymphadenopathy.
--- NOTE | 2024-11-20 23:48 | DVHPN2 ---
Progress Note - Dictate Date Seen: Nov 20, 2024 Medical Necessity Reason Pt with a Central, PICC or Fol: No Subjective Patient seen and examined at bedside. Remains on supplemental oxygen Overnight events reviewed. vital signs Vital Sign Date Time Temp Pulse Resp B/P (MAP) Pulse Ox O2 Delivery O2 Flow Rate FiO2 11/20/24 21:00 98.4 116 20 105/67 (80) 100 98.4 11/20/24 19:36 Nasal Cannula 3.0 11/20/24 19:36 32 Total Intake and Output 11/19/24 11/19/24 11/20/24 15:00 23:00 07:00 Intake Total 150 ml Balance 150 ml medications Current Medications Medications Dose Ordered Sig/Aida Route Start Time Stop Time Status Last Admin Dose Admin Docusate Sodium 100 mg BIDPRN PRN PO 11/18/24 04:00 Acetaminophen 650 mg Q6HP PRN PO 11/18/24 04:00 11/18/24 23:26 650 MG Acetaminophen/ Hydrocodone Bitart 1 tab Q6HPRN PRN PO 11/18/24 04:00 11/20/24 17:37 1 TAB Ondansetron HCl 4 mg Q4HP PRN IV 11/18/24 04:00 Nitroglycerin 0.4 mg Q5MINP PRN SL 11/18/24 04:00 Morphine Sulfate 2 mg Q30M PRN IV 11/18/24 04:00 Ceftriaxone Sodium 50 ml @ 100 mls/hr DAILY IV 11/19/24 10:00 11/20/24 11:03 100 MLS/HR Azithromycin 250 ml @ 125 mls/hr DAILY IV 11/19/24 10:00 11/20/24 16:37 125 MLS/HR Albuterol 2.5 mg Q6HWA NEB 11/18/24 18:00 11/20/24 19:36 2.5 MG Ipratropium [place] 0.5 mg Q6HWA NEB 11/18/24 18:00 11/20/24 19:36 0.5 MG Furosemide 20 mg BIDD IV 11/19/24 18:00 11/20/24 18:26 20 MG Potassium Chloride 10 meq BID PO 11/19/24 22:00 11/20/24 21:42 10 MEQ objective Gen.: Patient lying in bed in no apparent distress. On supplemental oxygen. Head: Normocephalic, atraumatic. Eyes: EOMI/PERRLA. Ears: Normal hearing. Normal anatomy. Neck/trachea: Trachea midline, supple. Nose: Normal external anatomy. Mouth: Moist mucous membranes. Chest: Decreased air entry bilaterally. Bilateral crackles present. No wheezing or rhonchi. Cardiovascular: Positive S1, positive S2. Regular rate and rhythm. Abdomen: Positive bowel sounds in all 4 quadrants. Soft, non-tender, non- distended. : Deferred. Rectal: Deferred. Skin: Warm, dry. Intact. Extremities: 2+ radial pulses bilaterally. No lower extremity edema. Neuro: Awake, alert, oriented x3. No gross motor or sensory deficits. Cranial nerves II through XII intact. Gait not assessed. laboratory and microbiology Laboratory Tests 11/20/24 05:08 Test 11/20/24 05:08 Range/Units Serum Glucose 113 H 74-106 mg/dL Assessment/Plan Impression: Multifocal pneumonia Acute hypoxic respiratory failure Pleural effusion Atelectasis Lymphoma Events: Remains on supplemental oxygen, 2 LPM NC Taper O2 as tolerated BiPAP PRN. CT angio reviewed, demonstrates: No evidence of acute pulmonary emboli. Interval development of small bilateral pleural effusions, worsening moderate bilateral pulmonary opacities that may represent pneumonia or edema. Stable upper abdominal findings with massive splenomegaly and periportal soft tissue fullness extending to retroperitoneal region, likely lymphadenopathy. Continue bronchodilators Continue antibiotics Incentive spirometry Labs and imaging reviewed. Rest of plan as noted below. Plan: Supplemental oxygen keep O2 saturation above 92%. BiPAP PRN Continue antibiotics Send sputum for Gram stain and culture. Continue bronchodilators GI prophylaxis-Pepcid DVT prophylaxis-Lovenox Prognosis: Guarded given multiple comorbidities. Rest of plan per hospitalist and other consultants. Thank you ADINA Winters for allowing me to participate in this patient's care. Further recommendations will depend on patient's clinical course. Please do not hesitate to contact me if you have any questions or concerns. This medical document was created using an electronic medical record system with [employer] system. Although this document has been carefully reviewed, there may still be some phonetic and typographical errors. These areas are purely typographical due to imperfections of the software programs, and do not reflect any compromise in the patient's medical care. Plan discussed with: Patient, Other (FAITH Luke) JUAN DIEGO GOLDSTEIN MD Nov 20, 2024 23:48
[2024-11-21] VITALS (11 sets, daily range): BP systolic 103–120; BP diastolic 55–70; PULSE 97–119; RESP 14–19; TEMP 97.6–98.6; O2SAT 98–100
[2024-11-21 06:55] LABS: Chloride 100 mmol/L (98-107)
[2024-11-21 06:56] LABS: Anion Gap 7 (5-15); Calcium 9.4 mg/dL (8.7-10.4); Carbon Dioxide 27 mmol/L (20-31)
[2024-11-21 07:01] LABS: Glucose 109 mg/dL (74-106); Potassium 4.5 mmol/L (3.5-5.1); Sodium 134 mmol/L (136-145)
[2024-11-21 07:05] LABS: BUN/Creatinine Ratio 40.7 (10.0-20.0)
[2024-11-21 07:06] LABS: Blood Urea Nitrogen 22 mg/dL (9-23)
[2024-11-21 07:47] LABS: Hemoglobin 7.4 g/dL (12.2-16.2); Mean Corpuscular Hemoglobin 29.7 pg (28.0-32.0); Red Blood Cells 2.49 10^6/uL (4.0-5.20)
[2024-11-21 07:51] LABS: Hematocrit 23.2 % (36.0-46.0); Mean Corpuscular Hgb Conc. 31.9 g/dL (32.0-36.0); Mean Corpuscular Volume 93.1 fL (80.0-100.0); Platelet Count (auto) 139 10^3/uL (140-450); Red Cell Distribution Width 17.5 % (11.8-14.3); White Blood Cell 24.9 10^3/uL (4.4-10.8)
[2024-11-21 07:55] LABS: Basophils % (manual) 0 (0.0-2.0); Blast Cells 0; Eosinophils % (manual) 0 (0-7); Metamyelocytes % 0; Myelocytes % 0; Promyelocytes % 0; Reactive Lymphocytes 0
[2024-11-21 09:13] LABS: Band Neutrophils % (manual) 2; Lymphocytes % (manual) 72 (10.0-50.0); Monocytes % (manual) 4 (0-12); Platelet Estimate Decreased
[2024-11-21] MEDS: DOCUSATE SOD 100 MG CAP PO PRN (11:54)
[2024-11-21] MEDS ORDERED: LEVO500T91 PO (14:21)
[2024-11-21] MEDS ORDERED: ALBU108A5 IN (14:21)
[2024-11-21] MEDS ORDERED: IPRA0.00 IN (14:21)
[2024-11-21] MEDS ORDERED: PRED20TA2 PO (14:21)
--- NOTE | 2024-11-21 14:22 | DVHDS2 ---
Discharge Summary Date of Admission Nov 18, 2024 at 03:56 Date of Discharge: Nov 21, 2024 Labs/Diagnostic Data: Laboratory Results Test 11/21/24 04:56 11/19/24 00:03 11/18/24 09:59 11/18/24 04:24 White Blood Count 24.9 10^3/uL (4.4-10.8) Red Blood Count 2.49 10^6/uL (4.0-5.20) Hemoglobin 7.4 g/dL (12.2-16.2) Hematocrit 23.2 % (36.0-46.0) Mean Corpuscular Volume 93.1 fL (80.0-100.0) Mean Corpuscular Hemoglobin 29.7 pg (28.0-32.0) Mean Corpuscular Hemoglobin Concent 31.9 g/dL (32.0-36.0) Red Cell Distribution Width 17.5 % (11.8-14.3) Platelet Count 139 10^3/uL (140-450) Mean Platelet Volume 7.6 fL (6.9-10.8) Neutrophils (%) (Auto) % (37.0-80.0) Lymphocytes (%) (Auto) % (10.0-50.0) Monocytes (%) (Auto) % (0.0-12.0) Basophils (%) (Auto) % (0.0-2.0) Neutrophils # (Auto) 10 ^3/uL (1.6-8.6) Lymphocytes # (Auto) 10 ^3/uL (0.4-5.4) Monocytes # (Auto) 10 ^3/uL (0-1.3) Differential Total Cells Counted 100.0 (100) Neutrophils % (Manual) 22 (37.0-80.0) Band Neutrophils % (Manual) 2 Lymphocytes % (Manual) 72 (10.0-50.0) Monocytes % (Manual) 4 (0-12) Eosinophils % (Manual) 0 (0-7) Basophils % (Manual) 0 (0.0-2.0) Metamyelocytes % (manual) 0 Myelocytes % (Manual) 0 Promyelocytes % (Manual) 0 Blast Cells % (Manual) 0 Reactive Lymphocytes 0 Platelet Estimate Decreased Sodium Level 134 mmol/L (136-145) Potassium Level 4.5 mmol/L (3.5-5.1) Chloride Level 100 mmol/L (98-107) Carbon Dioxide Level 27 mmol/L (20-31) Anion Gap 7 (5-15) Blood Urea Nitrogen 22 mg/dL (9-23) Creatinine 0.54 mg/dL (0.550-1.02) Glomerular Filtration Rate Calc 100 mL/min (>90) BUN/Creatinine Ratio 40.7 (10.0-20.0) Serum Glucose 109 mg/dL (74-106) Calcium Level 9.4 mg/dL (8.7-10.4) Blood Gas Specimen Type Arterial Blood Gas Sample Site Right radial Blood Gas Patient Temperature 37.0 Arterial Blood Date Drawn Arterial Blood pH 7.489 (7.350-7.450) Arterial Blood Partial Pressure CO2 30.5 mmHg (32.0-45.0) Arterial Blood Partial Pressure O2 79.1 mmHg (83.0-108.0) Arterial Blood HCO3 22.7 mmol/L (21.0-28.0) Arterial Blood Oxygen Saturation 95.5 % (94.0-98.0) Arterial Blood Base Excess -0.4 mmol/L (-2.0-3.0) Arterial Blood Oxyhemoglobin 93.5 % (94.0-98.0) Arterial Blood Carboxyhemoglobin 1.8 % (0.5-1.5) Arterial Blood Methemoglobin 0.3 % (0.0-1.5) Jackson Test Modified Blood Gas Total Hemoglobin 7.70 g/dL (12.0-16.0) Blood Gas Liter Flow 2.00 Blood Gas Modality Nasal cannula FiO2 % 28.0 Urine Color Yellow (Yellow) Urine Clarity Turbid (Clear) Urine pH 6.0 (5.0-9.0) Urine Specific [place] 1.030 (1.001-1.035) Urine Protein 2+ (Negative) Urine Ketones Negative (Negative) Urine Blood Negative /uL (Negative) Urine Nitrite Negative (Negative) Urine Bilirubin Negative (Negative) Urine Urobilinogen Normal mg/dL (Negative) Urine Leukocyte Esterase Negative /uL (Negative) Urine RBC 4 /hpf (0 - 4) Urine Microscopic WBC 3 /HPF (0-5) Urine Squamous Epithelial Cells Few /hpf (<5) Urine Bacteria None seen /hpf (None Seen) Urine Mucus Few (None Seen) Urine Yeast (Budding) Occasional /hpf (None Urine Glucose Normal mg/dL (Normal) Thyroid Stimulating Hormone (TSH) 2.57 uIU/mL (0.55-4.78) Free Thyroxine (T4) Calculated 1.26 ng/dL (0.89-1.76) Test 11/18/24 04:17 11/18/24 02:31 11/17/24 19:55 Influenza Type A Antigen Negative (Negative) Influenza Type B Antigen Negative (Negative) SARS-CoV-2 Antigen (Rapid) Negative (NEGATIVE) Lactic Acid Level 1.0 mmol/L (0.4-2.0) Smudge Cells 12 /100 WBC Stomatocytes Few Total Bilirubin 0.6 mg/dL (0.2-1.0) Aspartate Amino Transferase (AST) 28 U/L (13-40) Alanine Aminotransferase (ALT) 11 U/L (7-40) Alkaline Phosphatase 148 U/L (46-116) Ammonia 15 umol/L (11-32) Total Protein 6.6 g/dL (5.7-8.2) Albumin 3.9 g/dL (3.2-4.8) Lipase 46 U/L (12-53) Other Laboratory Tests 11/21/24 04:56 Final Diagnosis/Problems List Pneumonia/respiratory distress Discharge Disposition: Home Discharge Instruct/Medications Diet: Consistent carbohydrate, Cardiac 2g Na,low cholest Activity: No Restrictions, As Tolerated Follow Up/Referral: Primary care physician after 2 weeks follow up pneumonia Medications: As prescribed and home medications Discharge Statement: "Patient was advised to return to the ER or call 911 if any headaches, dizziness, shortness of breath, chest pain, abdominal pain, bleeding, fevers, or worsening of medical condition. Patient was counseled about treatment plan, medications, possible side effects, patientverbalized understanding. All questions were answered to the best of my ability. This discharge took greater then 30 minutes in planning, reviewing documentation, counseling the patient, and discussing with other team members." ASSESSMENT ASSESSMENT Assessment Pneumonia/respiratory distress LATA ACUNA MD Nov 21, 2024 14:22
--- NOTE | 2024-11-21 23:43 | DVHPN2 ---
Progress Note - Dictate Date Seen: Nov 21, 2024 Medical Necessity Reason Pt with a Central, PICC or Fol: No Subjective Patient seen and examined at bedside. Remains on supplemental oxygen Overnight events reviewed. vital signs Vital Sign Date Time Temp Pulse Resp B/P (MAP) Pulse Ox O2 Delivery O2 Flow Rate FiO2 11/21/24 17:00 98.2 106 18 108/64 (79) 100 98.2 11/21/24 11:17 Nasal Cannula* 2 28 Total Intake and Output 11/20/24 11/20/24 11/21/24 15:00 23:00 07:00 Intake Total 1675 ml 800 ml Balance 1675 ml 800 ml objective Gen.: Patient lying in bed in no apparent distress. On supplemental oxygen. Head: Normocephalic, atraumatic. Eyes: EOMI/PERRLA. Ears: Normal hearing. Normal anatomy. Neck/trachea: Trachea midline, supple. Nose: Normal external anatomy. Mouth: Moist mucous membranes. Chest: Decreased air entry bilaterally. Bilateral crackles present. No wheezing or rhonchi. Cardiovascular: Positive S1, positive S2. Regular rate and rhythm. Abdomen: Positive bowel sounds in all 4 quadrants. Soft, non-tender, non- distended. : Deferred. Rectal: Deferred. Skin: Warm, dry. Intact. Extremities: 2+ radial pulses bilaterally. No lower extremity edema. Neuro: Awake, alert, oriented x3. No gross motor or sensory deficits. Cranial nerves II through XII intact. Gait not assessed. laboratory and microbiology Laboratory Tests 11/21/24 04:56 Test 11/21/24 04:56 Range/Units Serum Glucose 109 H 74-106 mg/dL Assessment/Plan Impression: Multifocal pneumonia Acute hypoxic respiratory failure Pleural effusion Atelectasis Lymphoma Events: Remains on supplemental oxygen, 2 LPM NC Taper O2 as tolerated BiPAP PRN. Arranged for home O2 Continue bronchodilators Continue steroids Continue antibiotics Incentive spirometry Patient is stable for discharge from the pulmonary standpoint. CT angio demonstrated no pulmonary emboli. Interval development of small bilateral pleural effusions, worsening moderate bilateral pulmonary opacities that may represent pneumonia or edema. Stable upper abdominal findings with massive splenomegaly and periportal soft tissue fullness extending to retroperitoneal region, likely lymphadenopathy. Labs and imaging reviewed. Rest of plan as noted below. Plan: Supplemental oxygen keep O2 saturation above 92%. BiPAP PRN Continue antibiotics Send sputum for Gram stain and culture. Continue bronchodilators GI prophylaxis-Pepcid DVT prophylaxis-Lovenox Prognosis: Guarded given multiple comorbidities. Rest of plan per hospitalist and other consultants. Thank you ADINA Winters for allowing me to participate in this patient's care. Further recommendations will depend on patient's clinical course. Please do not hesitate to contact me if you have any questions or concerns. This medical document was created using an electronic medical record system with [employer] dictation system. Although this document has been carefully reviewed, there may still be some phonetic and typographical errors. These areas are purely typographical due to imperfections of the software programs, and do not reflect any compromise in the patient's medical care. Plan discussed with: Patient, Other (FAITH Luke) JUAN DIEGO GOLDSTEIN MD Nov 21, 2024 23:43
== END 2024-11-21 17:17 | disposition home or self-care (01) | DRG 871 ==
LOC: EDBD 19:19 → ER 19:19 → TELE 11-18 03:56 → OVERFLOW 11-18 16:14 → TELE-WESTW 11-20 09:42
PROVIDERS: ADMIT Nurse Practitioner Family; ATTEND Hospitalist
DX: A41.9 Sepsis, unspecified organism (principal); J15.69 Pneumonia due to other Gram-negative bacteria; J96.01 Acute respiratory failure with hypoxia; J15.9 Unspecified bacterial pneumonia; J90 Pleural effusion, not elsewhere classified; C85.90 Non-Hodgkin lymphoma, unspecified, unspecified site; E87.3 Alkalosis; Z20.822 Contact with and (suspected) exposure to COVID-19; D64.9 Anemia, unspecified; Z79.899 Other long term (current) drug therapy
CPT/HCPCS: 36415; 36600; 71045; 71046; 71275; 74176; 80048; 80053; 81001; 82140; 82805; 83605; 83690; 84439; 84443; 85007; 85027; 87040; 87426; 87804; 93306; 94640; 96365; 96366; 96368; 96372; 97110; 97116; 97163; 97530; G0378; J3490; Q0162

== ENCOUNTER 2025-02-11 07:33 | Inpatient (IN) | payer OTHER, MEDICAID ==
[2025-02-11] VITALS (38 sets, daily range): BP systolic 67–139; BP diastolic 31–81; PULSE 79–141; RESP 16–40; TEMP 93.9–98.5; O2SAT 93–100
[~2025-02-11] VITALS: Ht 160 cm; Wt 51.0 kg
[~2025-02-11 07:33] MED LIST changes: +ACYC400T16 PO; +ALBU108A5 IN; +ALLO300T2 PO; +DOCU-94 PO; +FER325T PO; +IPRA0.00 IN; +LEVO500T91 PO; +PRED20TA2 PO
--- NOTE | 2025-02-11 07:46 | ED.PDOC ---
Altered Mental Status HPI Comments 69 year old female JOYCELYN presents to the ED with chief complaint of ALOC. EMS reports that the patient's son had noticed that the patient has been experiencing labored breathing with associated poor appetite since yesterday along with only answering her name. EMS relays that the patient has been hypotensive in the 80-70s with a blood glucose at 49. EMS states that the patient has abdominal distention that is new and not normal. Patient notes she is not sure why she is here and did know her name when asked. Patient denies any N/V/D, chest pain, SOB, dizziness, or LOC. Time Seen by MD: 07:42 Primary Care Provider: ESPERANZA Reviewed Notes: Nurses Notes, Control Engineer Notes, Medications, Allergies Allergies: Coded Allergies: NO KNOWN ALLERGIES (Unverified , 07/01/24) Home Meds Active Scripts Albuterol Sulfate (Albuterol Sulfate Hfa) 108 Mcg/Act Aer, 108 MCG IN Q4HPRN PRN, #1 AER Prov:LATA ACUNA MD 11/21/24 Prednisone (Prednisone) 20 Mg Tab, 20 MG PO DAILY, #7 MG Prov:LATA ACUNA MD 11/21/24 Ipratropium-Albuterol (Ipratropium [place]/Albut) 1 Brian Brian, 1 BRIAN IN TID, #60 ML Prov:LATA ACUNA MD 11/21/24 Levofloxacin Hemihydrate (LEVOFLOXACIN) 500 Mg Tab, 1 TAB PO DAILY, #7 TAB Prov:LATA ACUNA MD 11/21/24 Lactulose (Lactulose) 10 Gm Sami, 10 GM PO DAILYP PRN for 3 Days, #3 PACK Prov:ANKITA PERRY MD 08/10/24 Reported Medications Acyclovir (ZOVIRAX TABLET) 400 Mg Tb, 1 TAB PO, #60 TAB 3 Refills 11/20/24 Allopurinol (Allopurinol) 300 Mg Tab, 300 MG PO DAILY, TAB 11/20/24 Docusate Sodium (Colace) 100 Mg Cap, 1 CAP PO BID, #30 CAP 11/20/24 Ferrous Sulfate (FERROUS SULFATE) 325 Mg Tb, 1 TAB PO DAILY, #30 TAB 3 Refills 11/20/24 Information Source: Patient, Emergency Med Personnel Mode of Arrival: EMS Severity: Unable to Care for Self Timing: Hours Duration: Since onset Prehospital treatment: IVF Quality: Decreased Alertness, Change in Behavior, Not Eating Recent: None History of: None Past Medical History PAST MEDICAL HISTORY: Cancer, Liver Surgical History: Unknown 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: Denies all STAFF TECHNOLOGIST Hx Family History Family History: Reviewed,noncontributory to illness, Unknown Social History Smoker: Non-Smoker Alcohol: Denies ETOH Use Drugs: Marijuana Lives In: Home Constitutional: denies: chills, diaphoresis, fatigue, fever, malaise, sweats, weakness, others EENTM: denies: blurred vision, double vision, ear bleeding, ear discharge, ear drainage, ear pain, ear ringing, eye pain, eye redness, hearing loss, mouth pain, mouth swelling, nasal discharge, nose bleeding, nose congestion, nose pain, photophobia, tearing, throat pain, throat swelling, voice changes, others Respiratory: denies: cough, hemoptysis, orthopnea, SOB at rest, shortness of breath, SOB with excertion, stridor, wheezing, others Cardiovascular: denies: chest pain, dizzy spells, diaphoresis, Dyspnea on exertion, edema, irregular heart beat, left arm pain, lightheadedness, palpitations, PND, syncope, others Gastrointestinal: reports: abdomen distended; denies: abdominal pain, blood streaked bowels, constipated, diarrhea, dysphagia, difficulty swallowing, hematemesis, melena, nausea, poor appetite, poor fluid intake, rectal bleeding, rectal pain, vomiting, others Genitourinary: denies: abnormal vagina bleeding, burning, dyspareunia, dysuria, flank pain, frequency, hematuria, incontinence, pain, , vagina discharge, urgency, others Neurological: denies: dizziness, fainting, headache, left sided numbness, left sided weakness, numbness, paresthesia, pre-existing deficit, right sided n umbness, right sided weakness, seizure, speech problems, tingling, tremors, weakness, others Musculoskeletal: denies: back pain, gout, joint pain, joint swelling, muscle pain, muscle stiffness, neck pain, others Integumetry: denies: bruises, change in color, change in hair/nails, dryness, laceration, lesions, lumps, rash, wounds, others Allergic/Immunocompromised: denies: Difficulty Healing, Frequent Infections, Hives, Itching, others Hematologic/Lymphatic: denies: anemia, blood clots, easy bleeding, easy bruising, swollen glands, others Endocrine: denies: excessive hunger, excessive sweating, excessive thirst, excessive urination, flushing, intolerance to cold, intolerance to heat, unexplained weight gain, unexplained weight loss, others Psychiatric: denies: anxiety, bipolar disorder, depression, hopeless, panic disorder, schizophrenia, sleepless, suicidal, others Unable to Obtain due to: Altered Mental Status All Other Systems: Reviewed and Negative Physical Exam General Appearance: No Apparent Distress, Normal HEENT: Normal ENT Inspection, Pharynx Normal, TMs Normal Neck: Full Range of Motion, Non-Tender, Normal, Normal Inspection Respiratory: Chest Non-Tender, Lungs Clear, No Accessory Muscle Use, No Respiratory Distress, Normal Breath Sounds, Other (Tachypneic) Cardiovascular: No Edema, No JVD, No Murmur, No Gallop, Normal Peripheral Pulse s, Tachycardia Breast Exam: Deferred Gastrointestinal: Distended (Abdominal distention), No Organomegaly, Non Tender, No Pulsatile Mass, Normal Bowel Sounds Genitalia: Deferred Pelvic: Deferred Rectal: Deferred Extremities: No calf tenderness, Normal capillary refill, Normal inspection, Normal range of motion, Non-tender, No pedal edema Musculoskeletal : Apperance: Normal Neurologic: Alert, heating equipment installer II-XII nml as Tested, No Motor Deficits, Normal Affect, Normal Mood, No Sensory Deficits Cerebellar Function: Normal Reflexes: Normal Skin: Dry, Pallor (Pale appearing), Warm Lymphatic: No Adenopathy Was a procedure done? 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 Indication: Hypotension, CVP monitoring, Volume resuscitation, Suspected infection Room prepared for procedure: Yes Surgeon Assistant performed hand hygien: Yes Maximal sterile barrier precau: Mask/Eye shield, Sterile gown, Cap, Sterlie gloves, Large sterlie drape Skin Preparation: Chlorhexidine gluconate Skin preparation completely dr: Yes Insertion site: Right, Femoral Central line catheter type: [id number] dialysis Number of lumens: 3 Post Assessment: Chest X-Ray, Proper placement Informed consent obtained: Yes Risks/benefits/alt described: Yes Differential Diagnosis (ALOC) Differential Diagnosis: Dehydration, Hypoglycemia, Encephalopathy, Sepsis, Seizure, CVA, Heart Failure, Renal Failure X-Ray, Labs, Meds, VS Vital Signs Date Time Temp Pulse Resp B/P (MAP) Pulse Ox O2 Delivery O2 Flow Rate FiO2 02/11/25 09:41 98.5 141 21 116/53 96 100 98.5 02/11/25 09:10 141 21 116/53 (74) 96 100 02/11/25 09:08 89/34 02/11/25 08:00 109 02/11/25 07:58 108 02/11/25 07:51 98.5 115 32 90/56 (67) 96 98.5 Lab Test 02/11/25 10:33 02/11/25 09:54 02/11/25 08:46 02/11/25 07:50 Range/Units Blood Gas Specimen Type Arterial Blood Gas Sample Site Arterial line Blood Gas Patient Temperature 37.0 Arterial Blood Date Drawn [id number] Arterial Blood pH 6.979 *L 7.350-7.450 Arterial Blood Partial Pressure CO2 55.1 H 32.0-45.0 mmHg Arterial Blood Partial Pressure O2 172.6 H 83.0-108.0 mmHg Arterial Blood HCO3 12.7 L 21.0-28.0 mmol/L Arterial Blood Oxygen Saturation 98.4 H 94.0-98.0 % Arterial Blood Base Excess -17.3 L -2.0-3.0 mmol/L Arterial Blood Oxyhemoglobin 96.6 94.0-98.0 % Arterial Blood Carboxyhemoglobin 0.8 0.5-1.5 % Arterial Blood Methemoglobin 1.0 0.0-1.5 % Jackson Test N/a Blood Gas Total Hemoglobin 5.70 *L 12.0-16.0 g/dL Blood Gas Set Respiration Rate 20.0 Blood Gas Modality Vent - ac FiO2 % 100.0 Blood Gas Tidal Volume 400.0 Blood Gas PEEP or CPAP 5.0 Blood Gas Critical Value Read Back Yes Blood Gas Notified Whom Oliva samuel Blood Gas Notified Time [id number] Blood Gas Notified By [employer] secretary Lactic Acid Level 8.9 *H 9.3 *H 0.4-2.0 mmol/L Troponin I High Sensitivity 185 *H 165 *H </=34 ng/L White Blood Count 11.6 H 4.4-10.8 10^3/uL Red Blood Count 1.78 L 4.0-5.20 10^6/uL Hemoglobin 5.6 *L 12.2-16.2 g/dL Hematocrit 17.9 L 36.0-46.0 % Mean Corpuscular Volume 100.7 H 80.0-100.0 fL Mean Corpuscular Hemoglobin 31.5 28.0-32.0 pg Mean Corpuscular Hemoglobin Concent 31.3 L 32.0-36.0 g/dL Red Cell Distribution Width 18.2 H 11.8-14.3 % Platelet Count 10 *L 140-450 10^3/uL Mean Platelet Volume 7.7 6.9-10.8 fL Neutrophils (%) (Auto) 37.0-80.0 % Lymphocytes (%) (Auto) 10.0-50.0 % Monocytes (%) (Auto) 0.0-12.0 % Basophils (%) (Auto) 0.0-2.0 % Neutrophils # (Auto) 1.6-8.6 10 ^3/uL Lymphocytes # (Auto) 0.4-5.4 10 ^3/uL Monocytes # (Auto) 0-1.3 10 ^3/uL Differential Total Cells Counted 100.0 100 Neutrophils % (Manual) 11 L 37.0-80.0 Band Neutrophils % (Manual) 1 Lymphocytes % (Manual) 85 H 10.0-50.0 Monocytes % (Manual) 3 0-12 Eosinophils % (Manual) 0 0-7 Basophils % (Manual) 0 0.0-2.0 Metamyelocytes % (manual) 0 Myelocytes % (Manual) 0 Promyelocytes % (Manual) 0 Blast Cells % (Manual) 0 Nucleated Red Blood Cells 1.0 % Reactive Lymphocytes 0 Platelet Estimate Decreased Macrocytosis Slight Sodium Level 133 L 136-145 mmol/L Potassium Level 5.7 *H 3.5-5.1 mmol/L Chloride Level 105 98-107 mmol/L Carbon Dioxide Level 11 L 20-31 mmol/L Anion Gap 17 H 5-15 Blood Urea Nitrogen 55 H 9-23 mg/dL Creatinine 1.24 H 0.550-1.02 mg/dL Glomerular Filtration Rate Calc 47 >90 mL/min BUN/Creatinine Ratio 44.4 H 10.0-20.0 Serum Glucose 126 H 74-106 mg/dL Calcium Level 8.7 8.7-10.4 mg/dL Total Bilirubin 0.6 0.2-1.0 mg/dL Aspartate Amino Transferase (AST) 376 H 13-40 U/L Alanine Aminotransferase (ALT) 61 H 7-40 U/L Alkaline Phosphatase 274 H 46-116 U/L B-Type Natriuretic Peptide 129.51 0-100 pg/mL Total Protein 5.6 L 5.7-8.2 g/dL Albumin 3.2 3.2-4.8 g/dL Lipase 72 H 12-53 U/L Current Medications Medications (Trade) Dose Ordered Sig/Aida Route Start Time Stop Time Status Last Admin Sodium Chloride 1,000 ml @ 1,000 mls/hr Q1H ONCE IV 02/11/25 07:45 02/11/25 08:44 DC 02/11/25 08:03 Etomidate 20 mg ONCE ONCE IV 02/11/25 09:00 02/11/25 09:01 DC 02/11/25 09:07 Rocuronium [place] 100 mg ONCE ONCE IV 02/11/25 09:00 02/11/25 09:01 DC 02/11/25 09:08 Time of 1ST Reevaluation: 08:42 Reevaluation 1ST: Unchanged Patient Education/Counseling: Diagnosis, Treatment Family Education/Counseling: No Family Present Additional Information The following tests were ordered, and results were reviewed by me: CBC, BMP, CT Head, CT Abd/Pel, Blood Culture, Lactic, EKG Additional Information was gathered from interviewing the following independent historians: I reviewed and agreed with the following test results read by other providers: I discussed treatment and results with medical personnel and: patient Comprehensive systems review obtained and negative except for what is stated in the HPI. Departure 1 Departure Time of Disposition: 11:04 (Patient presents minimally responsive with melena. Patient is found to be anemic and with likely multifocal pneumonia. Patient was intubated central line placed arterial line placed. Patient ordered for blood and antibiotics. Patient receiving fluid resuscitation.) Impression: Primary Impression: Metabolic encephalopathy Additional Impressions: Sepsis Qualified Codes: A41.9 - Sepsis, unspecified organism; R65.21 - Severe sepsis with septic shock; J96.01 - Acute respiratory failure with hypoxia Lower GI bleed Symptomatic anemia Acute respiratory failure Qualified Codes: J96.01 - Acute respiratory failure with hypoxia Disposition: ADMITTED INPATIENT Admit to: ICU Condition: Critical Critical Care Note Critical Care Time?: Yes Critical care comment: Shock and respiratory failure Authorized and Performed by: Connie Rolle MD Total critical care time: Approximately 138 minutes Due to a high probability of clinically significant, life threatening deterioration, the patient required my highest level of preparedness to intervene emergently and I personally spent this critical care time directly and personally managing the patient. This critical care time included obtaining a history; examining the patient; pulse oximetry; ordering and review of studies; arranging urgent treatment with development of a management plan; evaluation of patient's response to treatment; frequent reassessment; and, discussions with other providers. This critical care time was performed to assess and manage the high probability of imminent, life-threatening deterioration that could result in multi-organ failure. It was exclusive of separately billable procedures and treating other patients and teaching time. Please see my other sections and the rest of the note for further information on patient assessment and treatment. Stability Stability form required: No Heart Score Heart Score: Heart Score Response (Comments) Value History Moderate Suspicious 1 EKG Normal 0 Age >65 2 Risk Factors >3 or Hx ASHD 2 Troponin 1-2 x's Normal limit 1 Total 6 I personally scribed for CONNIE ROLLE MD ([email or web address]) on 02/11/25 at 07:45. Electronically submitted by Pepe Donaldson ([email or web address]). I personally scribed for CONNIE ROLLE MD ([email or web address]) on 02/11/25 at 09:18. Electronically submitted by Pepe Donaldson ([email or web address]). I personally scribed for CONNIE ROLLE MD ([email or web address]) on 02/11/25 at 09:50. Electronically submitted by Pepe Donaldson ([email or web address]). CONNIE ROLLE MD February 11, 2025 07:45
[2025-02-11] MEDS: SODIUM CHLORIDE 0.9% 1,000 ML IV ONE ×2 (08:03→15:41)
[2025-02-11 08:29] LABS: Anion Gap 17 (5-15); BUN/Creatinine Ratio 44.4 (10.0-20.0); Bilirubin, Total 0.6 mg/dL (0.2-1.0); Calcium 8.7 mg/dL (8.7-10.4); Chloride 105 mmol/L (98-107)
[2025-02-11 08:34] LABS: Basophils % (manual) 0 (0.0-2.0); Blast Cells 0; Eosinophils % (manual) 0 (0-7); Hematocrit 17.9 % (36.0-46.0); Hemoglobin 5.6 g/dL (12.2-16.2); Mean Corpuscular Hemoglobin 31.5 pg (28.0-32.0); Mean Corpuscular Hgb Conc. 31.3 g/dL (32.0-36.0); Mean Corpuscular Volume 100.7 fL (80.0-100.0); Metamyelocytes % 0; Myelocytes % 0; Platelet Count (auto) 10 10^3/uL (140-450); Promyelocytes % 0; Reactive Lymphocytes 0; Red Blood Cells 1.78 10^6/uL (4.0-5.20); Red Cell Distribution Width 18.2 % (11.8-14.3); White Blood Cell 11.6 10^3/uL (4.4-10.8)
[2025-02-11 08:36] LABS: Alanine Aminotransferase 61 U/L (7-40); Albumin 3.2 g/dL (3.2-4.8); Alkaline Phosphatase 274 U/L (46-116); Aspartate Aminotransferase 376 U/L (13-40); Blood Urea Nitrogen 55 mg/dL (9-23); Carbon Dioxide 11 mmol/L (20-31); Glucose 126 mg/dL (74-106); Potassium 5.7 mmol/L (3.5-5.1); Sodium 133 mmol/L (136-145); Total Protein 5.6 g/dL (5.7-8.2)
[2025-02-11 08:37] LABS: Lactic Acid w/Reflex 9.3 mmol/L (0.4-2.0)
[2025-02-11] MEDS: IOHEXOL 300 MG/ML 100ML BOTTLE IJ ONE (08:49)
[2025-02-11] MEDS: NOREPINEPHRINE 8 MG/250ML KIT 250 ML IV SCH (08:57)
[2025-02-11] MEDS: NOREPINEPHRINE 8 MG/250ML KIT 250 ML IV ONE (08:58)
[2025-02-11] MEDS ORDERED: PANTOPRAZOLE 40 MG/10 ML VIAL INJ IV ONE (09:00)
[2025-02-11 09:07] LABS: Lipase 72 U/L (12-53)
[2025-02-11] MEDS: ETOMIDATE (2MG/ML) 20ML VIAL IV ONE (09:07)
[2025-02-11] MEDS: ROCURONIUM 10MG/ML 10ML VIAL IV ONE (09:08)
[2025-02-11 09:14] LABS: Band Neutrophils % (manual) 1; Lymphocytes % (manual) 85 (10.0-50.0); Monocytes % (manual) 3 (0-12)
[2025-02-11 09:20] LABS: Platelet Estimate Decreased
[2025-02-11 09:21] LABS: Macrocytosis Slight
--- NOTE | 2025-02-11 10:35 | DVH ---
EXAM: CT HEAD WITHOUT CONTRAST HISTORY: ams COMPARISON: None TECHNIQUE: Axial images of the head were obtained and reformatted in coronal and sagittal planes. All CT scans at this medical facility are performed using dose modulation techniques as appropriate t o a performed exam including the following: Automated exposure control was utilized; adjustment of th e MA and/or KV according to patient size; and use of iterative reconstruction technique. CT Dose: CTDI volume is 54.46 mGy. Dose-length product is 873.07 mGy*cm FINDINGS: There is no evidence of acute intracranial hemorrhage, mass, mass effect midline shift. There is no h ydrocephalus or extra-axial fluid collection. Flannery-white matter differentiation is maintained. The visualized paranasal sinuses and mastoid air cells are clear. The calvarium is intact. IMPRESSION: 1. No acute intracranial process. HS:Y
--- NOTE | 2025-02-11 10:38 | DVH ---
CHEST RADIOGRAPH Indication: ams Technique: Single frontal view of the chest was obtained COMPARISON: XY CHEST XRAY 1 VIEW on DOS: 11/18/24, XY CHEST PORTABLE on DOS: 11/13/24 FINDINGS: Lines and Tubes: Endotracheal tube and enteric catheter in satisfactory position. Lungs: Multifocal airspace disease. Pleura: No effusion. No pneumothorax. Cardiomediastinal contours: Cardiomegaly Bones: Unremarkable IMPRESSION: Endotracheal tube and enteric catheter in satisfactory position. Unchanged multifocal airspace disease most prominent in the right lower lobe.
[2025-02-11 10:40] LABS: Base Excess -17.3 mmol/L (-2.0-3.0)
--- NOTE | 2025-02-11 10:52 | DVH ---
Exam: CT CT AB PEL WITH IV CON ONLY History: ams, distended abdomen COMPARISON: 11/17/2024 Technique: Multidetector spiral CT of the abdomen and pelvis was performed from lung bases to pubic s ymphysis. Intravenous contrast was administered during this examination. Portal venous imaging was o btained. Axial, coronal and sagittal multiplanar reformats were performed by the technologist on a [employer] workstation. Radiation Dose : 1. Abdomen/Pelvis: CTDIvol 6.47mGy, DLP 364.8 mGy*cm. Findings: Lung Bases: Cardiomegaly. Small bilateral pleural effusions. Compressive atelectasis. Multifocal ai rspace opacities in the lung bases, [id number]. Liver: Hepatomegaly. Gallbladder and Biliary Tree: Unremarkable Spleen: Splenomegaly. Pancreas: The pancreas is normal in appearance without focal lesions or abnormal enhancement. Adrenal Glands: Unremarkable Kidneys: No hydronephrosis. Bladder: Unremarkable Bowel: The stomach is grossly normal in appearance. Small bowel and colon are normal in caliber and d istribution. The appendix is not visualized; however, no secondary findings of acute appendicitis dio ntified. Ascites: Absent Lymphadenopathy: No mesenteric, retroperitoneal or periportal lymphadenopathy. Abdominal Wall and Mesentery: Unremarkable. Vasculature: Right femoral arterial and central venous catheter are present. Vascular calcifications of the aorta. Pelvic Organs: Suboptimally visualized. Musculoskeletal: No aggressive focal bony lesions, acute fractures or dislocation. IMPRESSION: Unchanged severe hepatosplenomegaly. Radiation optimization: All CT scans at this facility use at least one of these dose optimization thang hniques: automated exposure control mA and/or kV adjustment per patient size (includes targeted exam s where dose is matched to clinical indication) or iterative reconstruction.
[2025-02-11] MEDS: PANTOPRAZOLE 40 MG/10 ML VIAL INJ IV ONE (11:28)
[2025-02-11] MEDS: PIPERACILLIN-TAZO 4.5GM 100 ML IV ONE (11:29)
[2025-02-11] MEDS: CALCIUM GLUC 1,000mg/50ml-NS 50 ML IV SCH (11:29)
[2025-02-11 12:15] LABS: Urine Bacteria None Seen /hpf (None Seen)
[2025-02-11 12:27] LABS: Urine Amorphous Crystal FEW /hpf (None Seen); Urine Blood 3+ /uL (Negative); Urine Clarity Ex.Turbid (Clear); Urine Color Yellow (Yellow); Urine Mucus FEW (None Seen); Urine Protein, UAD 1+ (Negative); Urine Specific Gravity 1.015 (1.001-1.035); Urine Squamous Epithelial Cell None Seen /hpf (<5); Urine Urobilinogen Normal (Negative); Urine WBC 2 /HPF (0-5)
[2025-02-11] MEDS: VASOPRESSIN 20 UNIT/ML ONE (13:13)
[2025-02-11 13:25] LABS: INR 2.83 (0.9-1.15); Prothrombin Time 27.1 sec (9.3-11.8)
[2025-02-11] MEDS: VASOPRESSIN 20 UNITS in SODIUM CHL 0.9% 99 ML IV SCH (13:36)
[2025-02-11] MEDS: EPINEPHrine HCL 250 ML IV SCH (13:37)
[2025-02-11] MEDS ORDERED: NITROGLYCERIN 0.4 MG SL TAB SL PRN (13:45)
[2025-02-11] MEDS ORDERED: SODIUM CHLORIDE 0.9% 1,000 ML IV SCH (13:45)
[2025-02-11] MEDS ORDERED: MORPHINE SULFATE INJ 2 MG/ml SYRG IV PRN ×2 (13:45)
[2025-02-11] MEDS ORDERED: ONDANSETRON HCL 4 MG/2 ML VIAL IV PRN (13:45)
[2025-02-11] MEDS: DOPamine 1600MCG/ML D5W 250 ML IV SCH (13:46)
[2025-02-11] MEDS: LIDOCAINE 2%HCL (LOCAL ANESTH.) INJ 10ml MDV ONE (13:56)
[2025-02-11] MEDS: GELATIN 1 SPONGE SIZE 50 TOP ONE (13:57)
--- NOTE | 2025-02-11 13:59 | DVHHP2 ---
History of Present Illness Reason for Visit: Altered mental status and labored breathing and black stools. History of Present Illness To be noted most of the history obtained from ER records, ER physician Dr. Mora, and after talking to patient's brother over the phone. 69-year-old female with a known history of lymphoma status post chemotherapy, presented to the hospital with altered mental status labored breathing found to have hypotension. Patient was eventually intubated currently on mechanical ventilation. Patient is currently getting 2 units of packed RBC for melanotic stools has been as Protonix drip. On the time of my admitting the patient patient is already on three vasopressors . Talked to patient's brother over the phone and explained him critical condition of the patient, who understands, verbalized understanding and agreeable to plan. Patient is full code. GI: GI bleed Heme/Onc: Anemia NOS, Other (Lymphoma status post chemotherapy.) Past Surgical History: None Family History: Other (Unknown.) Smoke: No (Unknown.) Review of Systems Review of Systems Unobtainable as patient is currently intubated and sedated. Allergies: Coded Allergies: NO KNOWN ALLERGIES (Unverified , 07/01/24) Medications Current Medications Medications Dose Ordered Sig/Aida Route Start Time Stop Time Status Last Admin Dose Admin Norepinephrine Bitartrate 250 ml @ 3.75 mls/hr Q24H IV 02/11/25 09:00 Midazolam HCl 50 ml @ 1 mls/hr Q24H IV 02/11/25 12:00 Vasopressin 20 units/Sodium Chloride 100 ml @ 9 mls/hr Q11H7M IV 02/11/25 13:15 02/11/25 13:36 9 MLS/HR Epinephrine HCl 250 ml @ 7.5 mls/hr Q24H IV 02/11/25 13:30 02/11/25 13:37 37.5 MLS/HR Dopamine HCl/ Dextrose 250 ml @ 9.375 mls/ hr Q24H IV 02/11/25 13:30 02/11/25 13:46 37.5 MLS/HR Sodium Chloride 1,000 ml @ 120 mls/hr Q8H20M IV 02/11/25 13:45 UNV Ondansetron HCl 4 mg Q4HP PRN IV 02/11/25 13:45 UNV Morphine Sulfate 2 mg Q4HPRN PRN IV 02/11/25 13:45 UNV Nitroglycerin 0.4 mg Q5MINP PRN SL 02/11/25 13:45 UNV Morphine Sulfate 2 mg Q30M PRN IV 02/11/25 13:45 UNV Vancomycin HCl 0 ml @ 0 mls/hr UD IV 02/11/25 14:00 UNV Cefepime HCl 50 ml @ 12.5 mls/hr Q12HR IV 02/11/25 22:00 UNV Metronidazole 100 ml @ 100 mls/hr Q8HR IV 02/11/25 14:00 UNV Pantoprazole Sodium 50 ml @ 10 mls/hr Q5H IV 02/11/25 14:00 UNV Exam Vital Signs Vital Signs Date Time Temp Pulse Resp B/P (MAP) Pulse Ox O2 Delivery O2 Flow Rate FiO2 02/11/25 13:52 119/45 02/11/25 13:30 51 24 96 50 02/11/25 13:00 96.8 96.8 Exam HEENT pupils are reactive Neck is supple CV is S1-S2 regular rate and rhythm Respiratory diminished breath sound bases GI sluggish bowel sounds but positive distention Extremities no edema 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 Labs/Xrays Labs Test 02/11/25 12:01 02/11/25 11:05 02/11/25 10:33 02/11/25 09:54 Range/Units Prothrombin Time 27.1 H 9.3-11.8 sec Prothrombin Time INR 2.83 H 0.9-1.15 Troponin I High Sensitivity 246 *H </=34 ng/L Blood Gas Specimen Type Arterial Blood Gas Sample Site Arterial line Blood Gas Patient Temperature 37.0 Arterial Blood Date Drawn [id number] Arterial Blood pH 6.979 *L 7.350-7.450 Arterial Blood Partial Pressure CO2 55.1 H 32.0-45.0 mmHg Arterial Blood Partial Pressure O2 172.6 H 83.0-108.0 mmHg Arterial Blood HCO3 12.7 L 21.0-28.0 mmol/L Arterial Blood Oxygen Saturation 98.4 H 94.0-98.0 % Arterial Blood Base Excess -17.3 L -2.0-3.0 mmol/L Arterial Blood Oxyhemoglobin 96.6 94.0-98.0 % Arterial Blood Carboxyhemoglobin 0.8 0.5-1.5 % Arterial Blood Methemoglobin 1.0 0.0-1.5 % Jackson Test N/a Blood Gas Total Hemoglobin 5.70 *L 12.0-16.0 g/dL Blood Gas Set Respiration Rate 20.0 Blood Gas Modality Vent - ac FiO2 % 100.0 Blood Gas Tidal Volume 400.0 Blood Gas PEEP or CPAP 5.0 Blood Gas Critical Value Read Back Yes Blood Gas Notified Whom Oliva cox. Blood Gas Notified Time [id number] Blood Gas Notified By Jude damon Lactic Acid Level 8.9 *H 0.4-2.0 mmol/L Test 02/11/25 08:08 02/11/25 07:50 Range/Units Urine Color Yellow Yellow Urine Clarity Ex.turbid Clear Urine pH 5.0 5.0-9.0 Urine Specific [place] 1.015 1.001-1.035 Urine Protein 1+ H Negative Urine Ketones Trace Negative Urine Blood 3+ H Negative /uL Urine Nitrite Negative Negative Urine Bilirubin Negative Negative Urine Urobilinogen Normal Negative mg/dL Urine Leukocyte Esterase Negative Negative /uL Urine RBC 5 0 - 4 /hpf Urine Microscopic WBC 2 0-5 /HPF Urine Squamous Epithelial Cells None seen <5 /hpf Urine Amorphous Crystals Few None Seen /hpf Urine Bacteria None seen None Seen /hpf Urine Mucus Few None Seen Urine Glucose Normal Normal mg/dL White Blood Count 11.6 H 4.4-10.8 10^3/uL Red Blood Count 1.78 L 4.0-5.20 10^6/uL Hemoglobin 5.6 *L 12.2-16.2 g/dL Hematocrit 17.9 L 36.0-46.0 % Mean Corpuscular Volume 100.7 H 80.0-100.0 fL Mean Corpuscular Hemoglobin 31.5 28.0-32.0 pg Mean Corpuscular Hemoglobin Concent 31.3 L 32.0-36.0 g/dL Red Cell Distribution Width 18.2 H 11.8-14.3 % Platelet Count 10 *L 140-450 10^3/uL Mean Platelet Volume 7.7 6.9-10.8 fL Neutrophils (%) (Auto) 37.0-80.0 % Lymphocytes (%) (Auto) 10.0-50.0 % Monocytes (%) (Auto) 0.0-12.0 % Basophils (%) (Auto) 0.0-2.0 % Neutrophils # (Auto) 1.6-8.6 10 ^3/uL Lymphocytes # (Auto) 0.4-5.4 10 ^3/uL Monocytes # (Auto) 0-1.3 10 ^3/uL Differential Total Cells Counted 100.0 100 Neutrophils % (Manual) 11 L 37.0-80.0 Band Neutrophils % (Manual) 1 Lymphocytes % (Manual) 85 H 10.0-50.0 Monocytes % (Manual) 3 0-12 Eosinophils % (Manual) 0 0-7 Basophils % (Manual) 0 0.0-2.0 Metamyelocytes % (manual) 0 Myelocytes % (Manual) 0 Promyelocytes % (Manual) 0 Blast Cells % (Manual) 0 Nucleated Red Blood Cells 1.0 % Reactive Lymphocytes 0 Platelet Estimate Decreased Macrocytosis Slight Sodium Level 133 L 136-145 mmol/L Potassium Level 5.7 *H 3.5-5.1 mmol/L Chloride Level 105 98-107 mmol/L Carbon Dioxide Level 11 L 20-31 mmol/L Anion Gap 17 H 5-15 Blood Urea Nitrogen 55 H 9-23 mg/dL Creatinine 1.24 H 0.550-1.02 mg/dL Glomerular Filtration Rate Calc 47 >90 mL/min BUN/Creatinine Ratio 44.4 H 10.0-20.0 Serum Glucose 126 H 74-106 mg/dL Calcium Level 8.7 8.7-10.4 mg/dL Total Bilirubin 0.6 0.2-1.0 mg/dL Aspartate Amino Transferase (AST) 376 H 13-40 U/L Alanine Aminotransferase (ALT) 61 H 7-40 U/L Alkaline Phosphatase 274 H 46-116 U/L B-Type Natriuretic Peptide 129.51 0-100 pg/mL Total Protein 5.6 L 5.7-8.2 g/dL Albumin 3.2 3.2-4.8 g/dL Lipase 72 H 12-53 U/L Assessment/Plan Assessment/Plan 69-year-old female with a known history of lymphoma status post chemotherapy was brought in with the paramedics with altered mental status unlabored breathing found to have 1. Acute metabolic encephalopathy 2. Acute hypoxic respiratory failure currently status post intubation on mechanical ventilation 3. Hypovolemic/hemorrhagic shock requiring three IV vasopressor 4. Acute kidney injury suspected secondary to vasomotor nephropathy next 5. Me tabolic acidosis secondary to acute kidney injury 6. Elevated liver function tests 7. Acute symptomatic anemia 8. Hypercoagulopathy 9. Elevated troponin suspect demand ischemia, rule out acute NV 10. Multifocal infiltrate, mainly in the right lower lobe 11. Hyperkalemia, repeat BMP stat 11. Lymphoma status post chemotherapy -admit to ICU, aggressive IV hydration, transfused 2 units of packed RBC, 1 unit of platelets, vitamin K, Protonix drip, GI consultation, CBC q.6 hours, - broad-spectrum IV antibiotics, pulmonary consultation and Infectious Disease consultation and Nephrology consultation, -patient remains critical prognosis remained very poor, explained to the patient's brother over the phone who understand, verbalized the understanding and agreeable to plan. Plan discussed with: Other (Patient's brother on the phone.) My Orders Orders - MARIELY ALVAREZ MD Procedure Category Date Status Time Pheresis Platelets K 02/11/25 Logged 12:09 Frozen Plasma K 02/11/25 Logged 12:56 Admit ADMIT 02/11/25 Transmitted 13:43 Code Status CODE 02/11/25 Transmitted 13:43 Sodium Chloride 0.9% PHA 02/11/25 Logged 13:45 Ondansetron Hcl PHA 02/11/25 Logged (Zofran) 13:45 Npo (Nothing By DIET 02/11/25 Transmitted Mouth) Diet Dinner Echo 2d Mode Cardiac US 02/11/25 Logged DOP 13:43 Condition: Critical [facility] 02/11/25 In Process 13:43 Morphine Sulfate [facility] 02/11/25 Logged Injection 13:45 Nitroglycerin [facility] 02/11/25 Logged Sublingual (Ntrostat 13:45 Morphine Sulfate [facility] 02/11/25 Logged Injection 13:45 Stat Ekg For Chest [facility] 02/11/25 In Process Pain 13:43 Notify Of Changes [facility] 02/11/25 In Process From Base 13:43 Electrician Chief For [facility] 02/11/25 In Process 24 Hours 13:43 Emergency Dysrhythmia [facility] 02/11/25 In Process Protocol 13:43 Rhythm Strips Once [facility] 02/11/25 In Process Every Shift 13:43 Oxygen By Nasal RT 02/11/25 Transmitted Cannula 13:43 * [facility] [employer] Portfolio Officer CONS 02/11/25 Transmitted 13:43 Vancomycin Per PHA 02/11/25 Logged Pharmacy 14:00 Cefepime 1gm/ 50ml PHA 02/11/25 Logged (Maxipime 1gm/50ml) 22:00 Metronidazole PHA 02/11/25 Logged 500mg/100ml (Flagyl 14:00 Pantoprazole PHA 02/11/25 Logged 40mg/50ml Ns Ae 14:00 Complete Blood Count LAB 02/11/25 Logged 18:00 Complete Blood Count LAB 02/12/25 Verified 00:00 Complete Blood Count LAB 02/12/25 Verified 06:00 Complete Blood Count LAB 02/12/25 Verified 12:00 Complete Blood Count LAB 02/12/25 Verified 18:00 *Consult CONS 02/11/25 Transmitted / 13:48 * Infectious [place]- CONS 02/11/25 Transmitted [place] 13:48 Basic Metabolic Panel LAB 02/11/25 Logged 13:48 * Cardiology Consult CONS 02/11/25 Transmitted 13:52 *Dr. [facility] CONS 02/11/25 Transmitted -[place] 13:53 Phytonadione (Vitamin PHA 02/11/25 Logged K) 14:00 Transfuse Blood ORDERS 02/11/25 Transmitted Product 13:54 Date of Service: February 11, 2025 Billing Provider: MARIELY ALVAREZ MD Common Visit Codes: NOT BILLABLE MARIELY ALVAREZ MD February 11, 2025 13:59
[2025-02-11] MEDS ORDERED: VANCOMYCIN PER PHARMACY 0 MG IV SCH (14:00)
[2025-02-11] MEDS: DEXTROSE 50% SYRINGE 150 ML IV ONE (14:07)
[2025-02-11] MEDS: EPINEPHrine HCL 250 ML IV ONE (14:08)
[2025-02-11] MEDS: VANCOMYCIN 1GM/200ML PM 200 ML IV ONE (14:09)
[2025-02-11] MEDS: DEXTROSE (50%) 50ML SYRG IV ONE ×4 (14:11→20:22)
[2025-02-11 14:15] LABS: Calcium 8.2 mg/dL (8.7-10.4)
[2025-02-11 14:16] LABS: Anion Gap 17 (5-15)
[2025-02-11 14:21] LABS: BUN/Creatinine Ratio 42.5 (10.0-20.0)
[2025-02-11 14:22] LABS: Blood Urea Nitrogen 57 mg/dL (9-23); Carbon Dioxide 11 mmol/L (20-31); Chloride 106 mmol/L (98-107); Glucose 66 mg/dL (74-106); Sodium 134 mmol/L (136-145)
--- NOTE | 2025-02-11 14:23 | DVHINCON2 ---
Date of service: February 11, [address] Guajardo Reason for Consultation Septic shock History of Present Illness Patient is a 69-year-old female with a known history of lymphoma status post chemotherapy, presented to the hospital with altered mental status labored breathing found to have hypotension. Most of the history obtained from the records. According to records, she has been on infusion therapy for the past 2 months, has been experiencing progressive generalized weakness shortness of breaths for the past week starting 02/07. She was too weak to eat or drink or come out of the bed. Patient had chills and shortness of breaths but no cough. She was mostly in her bed for the past week, patient became confused and disoriented 02/11 and therefore EMS was called. Patient is experiencing melena. 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 Patient was eventually intubated currently on mechanical ventilation. Patient is currently getting 2 units of packed RBC for melanotic stools has been as Protonix drip. Currently on 4 vasopressors. Patient is full code. Past Medical History Patient's past medical history is significant for GI bleed, Anemia NOS, Other (Lymphoma status post chemotherapy.) Past Surgical History Past Surgical History: None Family History: FH: heart attack G8 FATHER Hypertension G8 FATHER Ischemic heart disease G8 FATHER Social History Smoke: No (Unknown.) Allergies: Coded Allergies: NO KNOWN ALLERGIES (Unverified , 07/01/24) Home Meds Active Scripts Albuterol Sulfate (Albuterol Sulfate Hfa) 108 Mcg/Act Aer, 108 MCG IN Q4HPRN PRN, #1 AER Prov:LATA ACUNA MD 11/21/24 Prednisone (Prednisone) 20 Mg Tab, 20 MG PO DAILY, #7 MG Prov:LATA ACUNA MD 11/21/24 Ipratropium-Albuterol (Ipratropium [place]/Albut) 1 Brian Brian, 1 BRIAN IN TID, #60 ML Prov:LATA ACUNA MD 11/21/24 Levofloxacin Hemihydrate (LEVOFLOXACIN) 500 Mg Tab, 1 TAB PO DAILY, #7 TAB Prov:LATA ACUNA MD 11/21/24 Lactulose (Lactulose) 10 Gm Sami, 10 GM PO DAILYP PRN for 3 Days, #3 PACK Prov:ANKITA PERRY MD 08/10/24 Reported Medications Acyclovir (ZOVIRAX TABLET) 400 Mg Tb, 1 TAB PO, #60 TAB 3 Refills 11/20/24 Allopurinol (Allopurinol) 300 Mg Tab, 300 MG PO DAILY, TAB 11/20/24 Docusate Sodium (Colace) 100 Mg Cap, 1 CAP PO BID, #30 CAP 11/20/24 Ferrous Sulfate (FERROUS SULFATE) 325 Mg Tb, 1 TAB PO DAILY, #30 TAB 3 Refills 11/20/24 Current Medications Current Medications Medications (Trade) Dose Ordered Sig/Aida Route PRN Reason Start Time Stop Time Status Last Admin Calcium Gluconate/ Sodium Chloride 50 ml @ 100 mls/hr Q30M IV 02/11/25 09:00 02/11/25 09:59 DC 02/11/25 11:29 Norepinephrine Bitartrate 250 ml @ 3.75 mls/hr Q24H IV 02/11/25 09:00 Midazolam HCl 50 ml @ 1 mls/hr Q24H IV 02/11/25 12:00 Vasopressin 20 units/Sodium Chloride 100 ml @ 9 mls/hr Q11H7M IV 02/11/25 13:15 02/11/25 13:36 Epinephrine HCl 250 ml @ 7.5 mls/hr Q24H IV 02/11/25 13:30 02/11/25 13:37 Dopamine HCl/ Dextrose 250 ml @ 9.375 mls/ hr Q24H IV 02/11/25 13:30 02/11/25 13:46 Sodium Chloride 1,000 ml @ 120 mls/hr Q8H20M IV 02/11/25 13:45 UNV Ondansetron HCl (Zofran) 4 mg Q4HP PRN IV NAUSEA / VOMITING 02/11/25 13:45 UNV Morphine Sulfate 2 mg Q4HPRN PRN IV SEVERE PAIN (7-10 PAIN SCALE) 02/11/25 13:45 UNV Nitroglycerin (Ntrostat Sublingual) 0.4 mg Q5MINP PRN SL FOR CHEST PAIN 02/11/25 13:45 UNV Morphine Sulfate 2 mg Q30M PRN IV FOR CHEST PAIN 02/11/25 13:45 UNV Vancomycin HCl 0 ml @ 0 mls/hr UD IV 02/11/25 14:00 UNV Cefepime HCl 50 ml @ 12.5 mls/hr Q12HR IV 02/11/25 22:00 UNV Metronidazole 100 ml @ 100 mls/hr Q8HR IV 02/11/25 14:00 UNV Pantoprazole Sodium 50 ml @ 10 mls/hr Q5H IV 02/11/25 14:00 UNV Review of Systems Unobtainable as patient is currently intubated and sedated. Vital Signs Vital Signs Date Time Temp Pulse Resp B/P (MAP) Pulse Ox O2 Delivery O2 Flow Rate FiO2 02/11/25 13:52 119/45 02/11/25 13:30 51 24 96 50 02/11/25 13:00 96.8 96.8 Physical Exam General: Pupils are sluggish to respond, with dilated, extremities are cold Cardiovascular: Feeble Pulses, Regular S1 and S2. No murmurs, gallops or rubs. No JVD elevation. No pedal edema Respiratory: Intubated and mechanically ventilated Abdomen: Soft, distended, hypoactive bowel sounds, no rebound tenderness, massive hepatosplenomegaly Genitourinary: Huitron catheter + MSK/skin: Skin is dry and warm Neurological: Intubated Psych/Mental Status: obtunded Labs/Diagnostic Data Labs Test 02/11/25 12:01 02/11/25 11:05 02/11/25 10:33 02/11/25 09:54 Range/Units Prothrombin Time 27.1 H 9.3-11.8 sec Prothrombin Time INR 2.83 H 0.9-1.15 Calcium Level 8.2 L 8.7-10.4 mg/dL Troponin I High Sensitivity 246 *H </=34 ng/L Blood Gas Specimen Type Arterial Blood Gas Sample Site Arterial line Blood Gas Patient Temperature 37.0 Arterial Blood Date Drawn [id number] Arterial Blood pH 6.979 *L 7.350-7.450 Arterial Blood Partial Pressure CO2 55.1 H 32.0-45.0 mmHg Arterial Blood Partial Pressure O2 172.6 H 83.0-108.0 mmHg Arterial Blood HCO3 12.7 L 21.0-28.0 mmol/L Arterial Blood Oxygen Saturation 98.4 H 94.0-98.0 % Arterial Blood Base Excess -17.3 L -2.0-3.0 mmol/L Arterial Blood Oxyhemoglobin 96.6 94.0-98.0 % Arterial Blood Carboxyhemoglobin 0.8 0.5-1.5 % Arterial Blood Methemoglobin 1.0 0.0-1.5 % Jackson Test N/a Blood Gas Total Hemoglobin 5.70 *L 12.0-16.0 g/dL Blood Gas Set Respiration Rate 20.0 Blood Gas Modality Vent - ac FiO2 % 100.0 Blood Gas Tidal Volume 400.0 Blood Gas PEEP or CPAP 5.0 Blood Gas Critical Value Read Back Yes Blood Gas Notified Whom Oliva samuel Blood Gas Notified Time [id number] Blood Gas Notified By Jude damon Lactic Acid Level 8.9 *H 0.4-2.0 mmol/L Test 02/11/25 08:08 02/11/25 07:50 Range/Units Urine Color Yellow Yellow Urine Clarity Ex.turbid Clear Urine pH 5.0 5.0-9.0 Urine Specific [place] 1.015 1.001-1.035 Urine Protein 1+ H Negative Urine Ketones Trace Negative Urine Blood 3+ H Negative /uL Urine Nitrite Negative Negative Urine Bilirubin Negative Negative Urine Urobilinogen Normal Negative mg/dL Urine Leukocyte Esterase Negative Negative /uL Urine RBC 5 0 - 4 /hpf Urine Microscopic WBC 2 0-5 /HPF Urine Squamous Epithelial Cells None seen <5 /hpf Urine Amorphous Crystals Few None Seen /hpf Urine Bacteria None seen None Seen /hpf Urine Mucus Few None Seen Urine Glucose Normal Normal mg/dL White Blood Count 11.6 H 4.4-10.8 10^3/uL Red Blood Count 1.78 L 4.0-5.20 10^6/uL Hemoglobin 5.6 *L 12.2-16.2 g/dL Hematocrit 17.9 L 36.0-46.0 % Mean Corpuscular Volume 100.7 H 80.0-100.0 fL Mean Corpuscular Hemoglobin 31.5 28.0-32.0 pg Mean Corpuscular Hemoglobin Concent 31.3 L 32.0-36.0 g/dL Red Cell Distribution Width 18.2 H 11.8-14.3 % Platelet Count 10 *L 140-450 10^3/uL Mean Platelet Volume 7.7 6.9-10.8 fL Neutrophils (%) (Auto) 37.0-80.0 % Lymphocytes (%) (Auto) 10.0-50.0 % Monocytes (%) (Auto) 0.0-12.0 % Basophils (%) (Auto) 0.0-2.0 % Neutrophils # (Auto) 1.6-8.6 10 ^3/uL Lymphocytes # (Auto) 0.4-5.4 10 ^3/uL Monocytes # (Auto) 0-1.3 10 ^3/uL Differential Total Cells Counted 100.0 100 Neutrophils % (Manual) 11 L 37.0-80.0 Band Neutrophils % (Manual) 1 Lymphocytes % (Manual) 85 H 10.0-50.0 Monocytes % (Manual) 3 0-12 Eosinophils % (Manual) 0 0-7 Basophils % (Manual) 0 0.0-2.0 Metamyelocytes % (manual) 0 Myelocytes % (Manual) 0 Promyelocytes % (Manual) 0 Blast Cells % (Manual) 0 Nucleated Red Blood Cells 1.0 % Reactive Lymphocytes 0 Platelet Estimate Decreased Macrocytosis Slight Total Bilirubin 0.6 0.2-1.0 mg/dL Aspartate Amino Transferase (AST) 376 H 13-40 U/L Alanine Aminotransferase (ALT) 61 H 7-40 U/L Alkaline Phosphatase 274 H 46-116 U/L B-Type Natriuretic Peptide 129.51 0-100 pg/mL Total Protein 5.6 L 5.7-8.2 g/dL Albumin 3.2 3.2-4.8 g/dL Lipase 72 H 12-53 U/L Assessment Patient is a 69-year-old Female presents to the hospital with: Septic shock (severe) Hemorrhagic shock Coma GI bleed anemia Acute hypoxic respiratory failure encephalopathy Lymphoma Recommendation Patient is on 4 pressors already, she was brought in with GI bleed/ acute hypoxic respiratory failure, intubated immediately in ER She is not on any sedation but not following commands pupils are sluggish. Blood cultures pressor support Broad spectrum Abx: IV Vancomycin per pharmacy/ Cefepime monitor labs GI consult Blood transfusion: defer to primary I am concerned of hypoxic / hypotensive brain injury, unclear how long she was hypoxic at home. She is not on sedation and not following commands Plan discussed with Dr guajardo / RN Prognosis very poor Critical time 45 minutes spent she is full code Thank you for consult Plan discussed with: CHARISSA Waddell MD February 11, 2025 14:23
[2025-02-11 14:26] LABS: Potassium 7.1 mmol/L (3.5-5.1)
[2025-02-11] MEDS: MIDAZOLAM DRIP 50 mg/50mL 50 ML IV SCH (14:58)
[2025-02-11] MEDS: TRANEXAMIC ACID 1,000 MG in SODIUM CHL 0.9% 100 ML IV ONE (15:01)
[2025-02-11] MEDS: PHYTONADIONE (VIT K)10 MG/ML 1ML VIAL SUBCUT ONE (15:15)
[2025-02-11] MEDS: metroNIDAZOLE 500MG/100ML 100 ML IV SCH (15:42)
[2025-02-11] MEDS: metroNIDAZOLE 500MG/100ML 100 ML IV ONE (15:42)
--- NOTE | 2025-02-11 15:44 | DVHSR ---
APPROVED REPORT EXAM: Two-dimensional and M-mode echocardiogram with Doppler and color Doppler. Blood Pressure: 119/45 mmHg INDICATION Elevated Trop RISK FACTORS Height: 5'2", Weight: 110 DIMENSIONS LVDd4.9 (3.8-5.7cm)LA (2D)2.9 (1.9-4.0cm)Aortic Root (2.0-3.7cm) LVDs1.8 (2.5-4.0cm)LA (MM) (1.9-4.0cm)Aortic Cusp Exc (1.5-2.0cm) EF (%) 91.0 (55-70%)Rt. Atrium5.4 (1.9-4.0cm)Asc. Aorta cm IVSd0.8 (0.7-1.1cm)RV (D)4.7 (1.8-2.4cm) Mitral Valve MitralMitral Stenosis E/A ratio0.02D MVAcm2 Aortic Valve Aortic ValveAortic Stenosis 2D AVA2.65cm2 Pulmonic Valve V20.60m/s Tricuspid Valve TR Velocity2.36m/s [id number] Other Information Quality : Technically LimitedRhythm : Technically limited study due to body habitus on vent, and leaning towads right side. Conclusion Technically limited study. Difficult acoustic windows limited views obtained. Sinus tachycardia not ed. Right atrial and right ventricular enlargement of [id number] degree. Valves appear to be structurally normal. Left ventricular systolic function appears preserved. EF is 60% with normal right ventricular functi on. There is [id number] tricuspid regurgitation. RVSP of about 35-40 mmHg. No pericardial effusion masses or vegetations. Pleural effusion noted.
[2025-02-11] MEDS: ALBUTEROL SULF 2.5 MG/0.5ML(0.5%) NEB SOLN NEB ONE ×2 (16:01→19:19)
--- NOTE | 2025-02-11 16:14 | DVHINCON2 ---
Date Seen: February 11, [address] Whitman Reason for Consultation Hypertension History of Present Illness 69-year-old lady with a history of malignancy comes to the hospital with a history bleeding. Noted to have multiple blood dyscrasias. Anemia and thrombocytopenia. Patient developed hypotension and required blood. Cardiac evaluation was requested Past Medical History 69-year-old female with a known history of lymphoma status post chemotherapy, associated history of altered mental status. Given her progressive shortness of breath patient was intubated. Patient is currently getting 2 units of packed RBC. Noted history of melanotic stools, is on a Protonix drip. Primary care and admitting team have spoken to the son explaining the critical situation. Patient is a full code as of yet. History of GI bleeding and possible malignancy. No previous cardiac history. Past Surgical History Unknown past surgical history. Family History: FH: heart attack G8 FATHER Hypertension G8 FATHER Ischemic heart disease G8 FATHER Allergies: Coded Allergies: NO KNOWN ALLERGIES (Unverified , 07/01/24) Home Meds Active Scripts Albuterol Sulfate (Albuterol Sulfate Hfa) 108 Mcg/Act Aer, 108 MCG IN Q4HPRN PRN, #1 AER Prov:LATA ACUNA MD 11/21/24 Prednisone (Prednisone) 20 Mg Tab, 20 MG PO DAILY, #7 MG Prov:LATA ACUNA MD 11/21/24 Ipratropium-Albuterol (Ipratropium [place]/Albut) 1 Brian Brian, 1 BRIAN IN TID, #60 ML Prov:LATA ACUNA MD 11/21/24 Levofloxacin Hemihydrate (LEVOFLOXACIN) 500 Mg Tab, 1 TAB PO DAILY, #7 TAB Prov:LATA ACUNA MD 11/21/24 Lactulose (Lactulose) 10 Gm Sami, 10 GM PO DAILYP PRN for 3 Days, #3 PACK Prov:ANKITA PERRY MD 08/10/24 Reported Medications Acyclovir (ZOVIRAX TABLET) 400 Mg Tb, 1 TAB PO, #60 TAB 3 Refills 11/20/24 Allopurinol (Allopurinol) 300 Mg Tab, 300 MG PO DAILY, TAB 11/20/24 Docusate Sodium (Colace) 100 Mg Cap, 1 CAP PO BID, #30 CAP 11/20/24 Ferrous Sulfate (FERROUS SULFATE) 325 Mg Tb, 1 TAB PO DAILY, #30 TAB 3 Refills 11/20/24 Current Medications Current Medications Medications (Trade) Dose Ordered Sig/Aida Route PRN Reason Start Time Stop Time Status Last Admin Calcium Gluconate/ Sodium Chloride 50 ml @ 100 mls/hr Q30M IV 02/11/25 09:00 02/11/25 09:59 DC 02/11/25 11:29 Norepinephrine Bitartrate 250 ml @ 3.75 mls/hr Q24H IV 02/11/25 09:00 02/11/25 08:57 Midazolam HCl 50 ml @ 1 mls/hr Q24H IV 02/11/25 12:00 Vasopressin 20 units/Sodium Chloride 100 ml @ 9 mls/hr Q11H7M IV 02/11/25 13:15 02/11/25 13:36 Epinephrine HCl 250 ml @ 7.5 mls/hr Q24H IV 02/11/25 13:30 02/11/25 13:37 Dopamine HCl/ Dextrose 250 ml @ 9.375 mls/ hr Q24H IV 02/11/25 13:30 02/11/25 13:46 Sodium Chloride 1,000 ml @ 120 mls/hr Q8H20M IV 02/11/25 13:45 Ondansetron HCl (Zofran) 4 mg Q4HP PRN IV NAUSEA / VOMITING 02/11/25 13:45 Morphine Sulfate 2 mg Q4HPRN PRN IV SEVERE PAIN (7-10 PAIN SCALE) 02/11/25 13:45 Nitroglycerin (Ntrostat Sublingual) 0.4 mg Q5MINP PRN SL FOR CHEST PAIN 02/11/25 13:45 Morphine Sulfate 2 mg Q30M PRN IV FOR CHEST PAIN 02/11/25 13:45 Vancomycin HCl 0 ml @ 0 mls/hr UD IV 02/11/25 14:00 Cefepime HCl 50 ml @ 12.5 mls/hr Q12HR IV 02/11/25 22:00 Metronidazole 100 ml @ 100 mls/hr Q8HR IV 02/11/25 14:00 02/11/25 15:42 Pantoprazole Sodium 50 ml @ 10 mls/hr Q5H IV 02/11/25 14:00 Review of Systems Patient is on ventilator, unable to get review of systems Vital Signs Vital Signs Date Time Temp Pulse Resp B/P (MAP) Pulse Ox O2 Delivery O2 Flow Rate FiO2 02/11/25 15:30 95.2 90 20 105/45 95.2 02/11/25 15:06 94 40 Physical Exam Patient is intubated. Blood pressure is labile. Ninety systolic on pressors. HEENT examination pale conjunctiva. Intubated. Lungs reveal good air entry. Heart exam reveals regular S1-S2 tachycardic. Faint heart sounds. Abdominal examination is unremarkable. Extremities show diminished perfusion cool extremities. Mild acrocyanosis. Labs/Diagnostic Data Labs Test 02/11/25 12:01 02/11/25 11:05 02/11/25 10:33 02/11/25 09:54 Range/Units Prothrombin Time 27.1 H 9.3-11.8 sec Prothrombin Time INR 2.83 H 0.9-1.15 Sodium Level 134 L 136-145 mmol/L Potassium Level 7.1 *H 3.5-5.1 mmol/L Chloride Level 106 98-107 mmol/L Carbon Dioxide Level 11 L 20-31 mmol/L Anion Gap 17 H 5-15 Blood Urea Nitrogen 57 H 9-23 mg/dL Creatinine 1.34 H 0.550-1.02 mg/dL Glomerular Filtration Rate Calc 43 >90 mL/min BUN/Creatinine Ratio 42.5 H 10.0-20.0 Serum Glucose 66 L 74-106 mg/dL Calcium Level 8.2 L 8.7-10.4 mg/dL Troponin I High Sensitivity 246 *H </=34 ng/L Blood Gas Specimen Type Arterial Blood Gas Sample Site Arterial line Blood Gas Patient Temperature 37.0 Arterial Blood Date Drawn [id number] Arterial Blood pH 6.979 *L 7.350-7.450 Arterial Blood Partial Pressure CO2 55.1 H 32.0-45.0 mmHg Arterial Blood Partial Pressure O2 172.6 H 83.0-108.0 mmHg Arterial Blood HCO3 12.7 L 21.0-28.0 mmol/L Arterial Blood Oxygen Saturation 98.4 H 94.0-98.0 % Arterial Blood Base Excess -17.3 L -2.0-3.0 mmol/L Arterial Blood Oxyhemoglobin 96.6 94.0-98.0 % Arterial Blood Carboxyhemoglobin 0.8 0.5-1.5 % Arterial Blood Methemoglobin 1.0 0.0-1.5 % Jackson Test N/a Blood Gas Total Hemoglobin 5.70 *L 12.0-16.0 g/dL Blood Gas Set Respiration Rate 20.0 Blood Gas Modality Vent - ac FiO2 % 100.0 Blood Gas Tidal Volume 400.0 Blood Gas PEEP or CPAP 5.0 Blood Gas Critical Value Read Back Yes Blood Gas Notified Whom Oliva cox. Blood Gas Notified Time [id number] Blood Gas Notified By Jude damon Lactic Acid Level 8.9 *H 0.4-2.0 mmol/L Test 02/11/25 08:08 02/11/25 07:50 Range/Units Urine Color Yellow Yellow Urine Clarity Ex.turbid Clear Urine pH 5.0 5.0-9.0 Urine Specific [place] 1.015 1.001-1.035 Urine Protein 1+ H Negative Urine Ketones Trace Negative Urine Blood 3+ H Negative /uL Urine Nitrite Negative Negative Urine Bilirubin Negative Negative Urine Urobilinogen Normal Negative mg/dL Urine Leukocyte Esterase Negative Negative /uL Urine RBC 5 0 - 4 /hpf Urine Microscopic WBC 2 0-5 /HPF Urine Squamous Epithelial Cells None seen <5 /hpf Urine Amorphous Crystals Few None Seen /hpf Urine Bacteria None seen None Seen /hpf Urine Mucus Few None Seen Urine Glucose Normal Normal mg/dL White Blood Count 11.6 H 4.4-10.8 10^3/uL Red Blood Count 1.78 L 4.0-5.20 10^6/uL Hemoglobin 5.6 *L 12.2-16.2 g/dL Hematocrit 17.9 L 36.0-46.0 % Mean Corpuscular Volume 100.7 H 80.0-100.0 fL Mean Corpuscular Hemoglobin 31.5 28.0-32.0 pg Mean Corpuscular Hemoglobin Concent 31.3 L 32.0-36.0 g/dL Red Cell Distribution Width 18.2 H 11.8-14.3 % Platelet Count 10 *L 140-450 10^3/uL Mean Platelet Volume 7.7 6.9-10.8 fL Neutrophils (%) (Auto) 37.0-80.0 % Lymphocytes (%) (Auto) 10.0-50.0 % Monocytes (%) (Auto) 0.0-12.0 % Basophils (%) (Auto) 0.0-2.0 % Neutrophils # (Auto) 1.6-8.6 10 ^3/uL Lymphocytes # (Auto) 0.4-5.4 10 ^3/uL Monocytes # (Auto) 0-1.3 10 ^3/uL Differential Total Cells Counted 100.0 100 Neutrophils % (Manual) 11 L 37.0-80.0 Band Neutrophils % (Manual) 1 Lymphocytes % (Manual) 85 H 10.0-50.0 Monocytes % (Manual) 3 0-12 Eosinophils % (Manual) 0 0-7 Basophils % (Manual) 0 0.0-2.0 Metamyelocytes % (manual) 0 Myelocytes % (Manual) 0 Promyelocytes % (Manual) 0 Blast Cells % (Manual) 0 Nucleated Red Blood Cells 1.0 % Reactive Lymphocytes 0 Platelet Estimate Decreased Macrocytosis Slight Total Bilirubin 0.6 0.2-1.0 mg/dL Aspartate Amino Transferase (AST) 376 H 13-40 U/L Alanine Aminotransferase (ALT) 61 H 7-40 U/L Alkaline Phosphatase 274 H 46-116 U/L B-Type Natriuretic Peptide 129.51 0-100 pg/mL Total Protein 5.6 L 5.7-8.2 g/dL Albumin 3.2 3.2-4.8 g/dL Lipase 72 H 12-53 U/L Patient's EKG shows sinus tachycardia. Nonspecific changes no acute injury pa ttern is noted. Echocardiogram shows normal left ventricular function. Mild RV and right atrial enlargement there appears to be no significant left ventricular dysfunction. EF of 60%. Assessment Hypotension. Malignancy. Rectal bleeding. Significant hematologic anomalies. Intensive shock. Normal left ventricular function. Overall poor prognosis. Plan/Recommendation We will recommend supportive measures. If malignancy has been her significant diagnosis I would strongly recommend supportive measures or palliative treatment otherwise consider DNR. Poor overall prognosis. No further cardiac testing needed at this time. Plan discussed with: Other NYHA Physical activity limitations: Class4(Severe)discomfort Date of Service: February 11, 2025 Billing Provider: CARLOS NOVOA Sr., MD Cardiology Common Codes: 04049-[id number] INP/OBS CARE (High), CONSULT ONLY CARLOS NOVOA Sr., MD February 11, 2025 16:14
[2025-02-11] MEDS: CALCIUM GLUC 1,000mg/50ml-NS 50 ML IV ONE ×2 (16:26→20:04)
[2025-02-11] MEDS: SODIUM BICARB 8.4% 50Meq/50ml SYR Vial IV ONE ×3 (16:29→23:15)
[2025-02-11] MEDS ORDERED: DEXTROSE 10% 1,000 ML IV ONE (16:30)
--- NOTE | 2025-02-11 16:43 | DVHCONRES ---
Date Seen: February 11, 2025 Resident Creating Document: ILANA GILLIS RESIDENT History of Present Illness This is a 69-year-old female with PMHx lymphoma, pneumonia and hypertension who was BIBA due to the chief complaint of altered mental status and shortness of breaths for the past week. Patient is currently intubated and mechanically ventilated. Per patient's brother, who the patient lives with, she has been on infusion therapy for the past 2 months, has been experiencing progressive generalized weakness shortness of breaths for the past week starting 02/07. She was too weak to eat or drink or come out of the bed. Patient had chills and shortness of breaths but no cough. She was mostly in her bed for the past week, patient became confused and disoriented 02/11 and therefore EMS was called. Per chart review, patient was hypotensive with blood pressure 70 systolic and blood glucose in 50s. Patient is experiencing melena. 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 Patient was given rituximab on November 09, unable to complete the dose given hypersensitivity. Patient is scheduled for [place] IV infusion containing Vandemis and Benralizumab 02/11/2025 but given her low hemoglobin on routine labs, hematology office recommended the patient to go to the ER but could not reach out. On arrival the ER, patient was tachycardic, afebrile, tachypneic with blood pressure 90/50 mmHg and unable to protect airway, there was she was intubated and mechanically ventilated. WBC 11, H&H 5/17, MCV 100, platelets 10. CMP showed potassium 5.7 going up to 7, bicarb 11, BUN/creatinine 55/1.24, GFR 44, lactic acid elevated at 9, transaminitis, elevated troponins, ABG showed pH 6.9, bicarb 12, CO2 55. UA showed 3+ blood. Past medical history: Splenic marginal zone lymphoma-refused CTX, hypertension, history of pneumonia Past surgical history: None Home medications: Spironolactone, docusate Patient seen and examined in the ER. Pupils are sluggish, RASS -4, urine output 20cc in the past 12 hours. Family History: FH: heart attack G8 FATHER Hypertension G8 FATHER Ischemic heart disease G8 FATHER Allergies: Coded Allergies: NO KNOWN ALLERGIES (Unverified , 07/01/24) Home Meds Active Scripts Albuterol Sulfate (Albuterol Sulfate Hfa) 108 Mcg/Act Aer, 108 MCG IN Q4HPRN PRN, #1 AER Prov:LATA ACUNA MD 11/21/24 Prednisone (Prednisone) 20 Mg Tab, 20 MG PO DAILY, #7 MG Prov:LATA ACUNA MD 11/21/24 Ipratropium-Albuterol (Ipratropium [place]/Albut) 1 Brian Brian, 1 BRIAN IN TID, #60 M L Prov:LATA ACUNA MD 11/21/24 Levofloxacin Hemihydrate (LEVOFLOXACIN) 500 Mg Tab, 1 TAB PO DAILY, #7 TAB Prov:LATA ACUNA MD 11/21/24 Lactulose (Lactulose) 10 Gm Sami, 10 GM PO DAILYP PRN for 3 Days, #3 PACK Prov:ANKITA PERRY MD 08/10/24 Reported Medications Acyclovir (ZOVIRAX TABLET) 400 Mg Tb, 1 TAB PO, #60 TAB 3 Refills 11/20/24 Allopurinol (Allopurinol) 300 Mg Tab, 300 MG PO DAILY, TAB 11/20/24 Docusate Sodium (Colace) 100 Mg Cap, 1 CAP PO BID, #30 CAP 11/20/24 Ferrous Sulfate (FERROUS SULFATE) 325 Mg Tb, 1 TAB PO DAILY, #30 TAB 3 Refills 11/20/24 Current Medications Current Medications Medications (Trade) Dose Ordered Sig/Aida Route PRN Reason Start Time Stop Time Status Last Admin Calcium Gluconate/ Sodium Chloride 50 ml @ 100 mls/hr Q30M IV 02/11/25 09:00 02/11/25 09:59 DC 02/11/25 11:29 Norepinephrine Bitartrate 250 ml @ 3.75 mls/hr Q24H IV 02/11/25 09:00 02/11/25 08:57 Midazolam HCl 50 ml @ 1 mls/hr Q24H IV 02/11/25 12:00 Vasopressin 20 units/Sodium Chloride 100 ml @ 9 mls/hr Q11H7M IV 02/11/25 13:15 02/11/25 13:36 Epinephrine HCl 250 ml @ 7.5 mls/hr Q24H IV 02/11/25 13:30 02/11/25 13:37 Dopamine HCl/ Dextrose 250 ml @ 9.375 mls/ hr Q24H IV 02/11/25 13:30 02/11/25 13:46 Sodium Chloride 1,000 ml @ 120 mls/hr Q8H20M IV 02/11/25 13:45 02/11/25 16:29 DC Ondansetron HCl (Zofran) 4 mg Q4HP PRN IV NAUSEA / VOMITING 02/11/25 13:45 Morphine Sulfate 2 mg Q4HPRN PRN IV SEVERE PAIN (7-10 PAIN SCALE) 02/11/25 13:45 Nitroglycerin (Ntrostat Sublingual) 0.4 mg Q5MINP PRN SL FOR CHEST PAIN 02/11/25 13:45 Morphine Sulfate 2 mg Q30M PRN IV FOR CHEST PAIN 02/11/25 13:45 Vancomycin HCl 0 ml @ 0 mls/hr UD IV 02/11/25 14:00 Cefepime HCl 50 ml @ 12.5 mls/hr Q12HR IV 02/11/25 22:00 Metronidazole 100 ml @ 100 mls/hr Q8HR IV 02/11/25 14:00 02/11/25 15:42 Pantoprazole Sodium 50 ml @ 10 mls/hr Q5H IV 02/11/25 14:00 Review of Systems Can could not be obtained given the patient is intubated Vital Signs Vital Signs Date Time Temp Pulse Resp B/P (MAP) Pulse Ox O2 Delivery O2 Flow Rate FiO2 02/11/25 16:00 88 02/11/25 15:45 95.2 20 101/42 95.2 02/11/25 15:06 94 40 Physical Exam Patient lying in bed, intubated and mechanically ventilated, RASS -5 General: Pupils are sluggish to respond, with dilated, extremities are cold Cardiovascular: Feeble Pulses, Regular S1 and S2. No murmurs, gallops or rubs. No JVD elevation. No pedal edema Respiratory: Intubated and mechanically ventilated Abdomen: Soft, distended, hypoactive bowel sounds, no rebound tenderness, m assive hepatosplenomegaly Genitourinary: Deferred. Huitron catheter draining 20 cc dark urine with sediment MSK/skin: Mobilizes 4 limbs. Skin is dry and warm Neurological: No motor, no sensitive deficits, normal speech. Pupils are isocoric and reactive. Psych/Mental Status: A/Ox3 Labs/Diagnostic Data Labs Test 02/11/25 12:01 02/11/25 11:05 02/11/25 10:33 02/11/25 09:54 Range/Units Prothrombin Time 27.1 H 9.3-11.8 sec Prothrombin Time INR 2.83 H 0.9-1.15 Sodium Level 134 L 136-145 mmol/L Potassium Level 7.1 *H 3.5-5.1 mmol/L Chloride Level 106 98-107 mmol/L Carbon Dioxide Level 11 L 20-31 mmol/L Anion Gap 17 H 5-15 Blood Urea Nitrogen 57 H 9-23 mg/dL Creatinine 1.34 H 0.550-1.02 mg/dL Glomerular Filtration Rate Calc 43 >90 mL/min BUN/Creatinine Ratio 42.5 H 10.0-20.0 Serum Glucose 66 L 74-106 mg/dL Calcium Level 8.2 L 8.7-10.4 mg/dL Phosphorus Level 11.7 H 2.4-5.1 mg/dL Troponin I High Sensitivity 246 *H </=34 ng/L Blood Gas Specimen Type Arterial Blood Gas Sample Site Arterial line Blood Gas Patient Temperature 37.0 Arterial Blood Date Drawn [id number] Arterial Blood pH 6.979 *L 7.350-7.450 Arterial Blood Partial Pressure CO2 55.1 H 32.0-45.0 mmHg Arterial Blood Partial Pressure O2 172.6 H 83.0-108.0 mmHg Arterial Blood HCO3 12.7 L 21.0-28.0 mmol/L Arterial Blood Oxygen Saturation 98.4 H 94.0-98.0 % Arterial Blood Base Excess -17.3 L -2.0-3.0 mmol/L Arterial Blood Oxyhemoglobin 96.6 94.0-98.0 % Arterial Blood Carboxyhemoglobin 0.8 0.5-1.5 % Arterial Blood Methemoglobin 1.0 0.0-1.5 % Jackson Test N/a Blood Gas Total Hemoglobin 5.70 *L 12.0-16.0 g/dL Blood Gas Set Respiration Rate 20.0 Blood Gas Modality Vent - ac FiO2 % 100.0 Blood Gas Tidal Volume 400.0 Blood Gas PEEP or CPAP 5.0 Blood Gas Critical Value Read Back Yes Blood Gas Notified Whom Oliva cox. Blood Gas Notified Time [id number] Blood Gas Notified By Jude damon Lactic Acid Level 8.9 *H 0.4-2.0 mmol/L Test 02/11/25 08:08 02/11/25 07:50 Range/Units Urine Color Yellow Yellow Urine Clarity Ex.turbid Clear Urine pH 5.0 5.0-9.0 Urine Specific [place] 1.015 1.001-1.035 Urine Protein 1+ H Negative Urine Ketones Trace Negative Urine Blood 3+ H Negative /uL Urine Nitrite Negative Negative Urine Bilirubin Negative Negative Urine Urobilinogen Normal Negative mg/dL Urine Leukocyte Esterase Negative Negative /uL Urine RBC 5 0 - 4 /hpf Urine Microscopic WBC 2 0-5 /HPF Urine Squamous Epithelial Cells None seen <5 /hpf Urine Amorphous Crystals Few None Seen /hpf Urine Bacteria None seen None Seen /hpf Urine Mucus Few None Seen Urine Glucose Normal Normal mg/dL White Blood Count 11.6 H 4.4-10.8 10^3/uL Red Blood Count 1.78 L 4.0-5.20 10^6/uL Hemoglobin 5.6 *L 12.2-16.2 g/dL Hematocrit 17.9 L 36.0-46.0 % Mean Corpuscular Volume 100.7 H 80.0-100.0 fL Mean Corpuscular Hemoglobin 31.5 28.0-32.0 pg Mean Corpuscular Hemoglobin Concent 31.3 L 32.0-36.0 g/dL Red Cell Distribution Width 18.2 H 11.8-14.3 % Platelet Count 10 *L 140-450 10^3/uL Mean Platelet Volume 7.7 6.9-10.8 fL Neutrophils (%) (Auto) 37.0-80.0 % Lymphocytes (%) (Auto) 10.0-50.0 % Monocytes (%) (Auto) 0.0-12.0 % Basophils (%) (Auto) 0.0-2.0 % Neutrophils # (Auto) 1.6-8.6 10 ^3/uL Lymphocytes # (Auto) 0.4-5.4 10 ^3/uL Monocytes # (Auto) 0-1.3 10 ^3/uL Differential Total Cells Counted 100.0 100 Neutrophils % (Manual) 11 L 37.0-80.0 Band Neutrophils % (Manual) 1 Lymphocytes % (Manual) 85 H 10.0-50.0 Monocytes % (Manual) 3 0-12 Eosinophils % (Manual) 0 0-7 Basophils % (Manual) 0 0.0-2.0 Metamyelocytes % (manual) 0 Myelocytes % (Manual) 0 Promyelocytes % (Manual) 0 Blast Cells % (Manual) 0 Nucleated Red Blood Cells 1.0 % Reactive Lymphocytes 0 Platelet Estimate Decreased Macrocytosis Slight Total Bilirubin 0.6 0.2-1.0 mg/dL Aspartate Amino Transferase (AST) 376 H 13-40 U/L Alanine Aminotransferase (ALT) 61 H 7-40 U/L Alkaline Phosphatase 274 H 46-116 U/L B-Type Natriuretic Peptide 129.51 0-100 pg/mL Total Protein 5.6 L 5.7-8.2 g/dL Albumin 3.2 3.2-4.8 g/dL Lipase 72 H 12-53 U/L Assessment Acute kidney injury, likely ATN Hypovolemic shock requiring pressor support Septic shock secondary to probable pneumonia Splenic marginal zone lymphoma Acute hypoxic respiratory failure secondary to above, mechanically intubated and ventilated Acute blood loss anemia Acute GI bleed Severe thrombocytopenia NSTEMI-type 1 versus type 2 Lactic acidosis Metabolic acidosis 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 Patient was given rituximab on December 03, unable to complete the dose given hypersensitivity. Patient is scheduled for [place] IV infusion containing Vandemis and Benralizumab 02/11/2025 but given her low hemoglobin on routine labs, hematology office recommended the patient to go to the ER but could not reach out. Plan: Recommend massive transfusion protocol Recommend hemoglobin greater than 7 Sodium bicarb 50 cc 3 doses administered IV D5W continuous drip at 150 cc with each drip containing 150 mL of sodium bicarb started Follow up with kidney ultrasound, urine protein/creatinine ratio, urine sodium, FENA Antibiotics per primary team Strict I&Os Poor prognosis Plan discussed with patient's brother at the bedside, all questions have been answered Discussed with Dr. Ruiz Addendum Patient seen and examined, plan discussed with resident. Agree with above, we will follow closely concern for tumor lysis syndrome oncology consult recommended --however oncology is not available now per administration Plan discussed with: Patient, Other (Brother at the bedside) ILANA GILLIS RESIDENT February 11, 2025 16:43 TIMO RUIZ MD February 12, 2025 14:17
[2025-02-11] MEDS: InsuLIN REG 1unit/0.01ml Soln (100units/ml) IV ONE ×2 (16:44→21:06)
[2025-02-11] MEDS: CEFEPIME 1GM/ 50ML 50 ML IV ONE (17:53)
[2025-02-11 17:54] LABS: Mean Corpuscular Hgb Conc. 28.1 g/dL (32.0-36.0)
[2025-02-11 17:56] LABS: Chloride 105 mmol/L (98-107); Hematocrit 21.5 % (36.0-46.0); Mean Corpuscular Volume 110.4 fL (80.0-100.0); Red Blood Cells 1.95 10^6/uL (4.0-5.20); Red Cell Distribution Width 19.2 % (11.8-14.3); Sodium 138 mmol/L (136-145); White Blood Cell 25.5 10^3/uL (4.4-10.8)
[2025-02-11 17:57] LABS: Anion Gap 23.00001 (5-15)
[2025-02-11 17:58] LABS: Calcium 9.1 mg/dL (8.7-10.4)
[2025-02-11] MEDS: PANTOPRAZOLE 40mg/50ML NS AE 50 ML IV SCH (17:59)
[2025-02-11] MEDS: SODIUM BICARB 50mEq/50ml Vial 150 ML in D5W 5% 1,000 ML IV SCH ×2 (18:06→21:05)
[2025-02-11] MEDS: ACCU-CHEK COMFORT CURVE STRIP VI SCH (18:16)
[2025-02-11 18:18] LABS: BUN/Creatinine Ratio 34.3 (10.0-20.0)
[2025-02-11 18:19] LABS: Blood Urea Nitrogen 60 mg/dL (9-23); Glucose 114 mg/dL (74-106)
[2025-02-11 18:25] LABS: Carbon Dioxide < 10 mmol/L (20-31)
[2025-02-11] MEDS: FUROSEMIDE 40 MG/4 ML VIAL IV ONE (18:25)
[2025-02-11 18:34] LABS: Platelet Count (auto) 10 10^3/uL (140-450)
[2025-02-11 18:35] LABS: Eosinophils % (manual) 0 (0-7); Promyelocytes % 0
--- NOTE | 2025-02-11 19:02 | ECG ---
[facility] Test Date: 2025-02-11 Test Time: 07:54:01 Pat Name: VICKIE TAPIA Department: ED Room: [address] [place] [address] Gender: F [employer] Audit Clerk: GERMAN : 1955 Requested By: CONNIE ROLLE Order Number: [id number] Reading MD: Dread Pichardo Measurements Intervals [place] Rate: 108 P: 81 LA: 153 QRS: 91 QRSD: 103 T: 56 QT: 363 QTc: 487 Interpretive Statements Sinus tachycardia Ventricular premature complex Low voltage, extremity and precordial leads Borderline prolonged QT interval Electronically Signed On 02-12-2025 21:12:55 PDT by Dread Pichardo Please click the below link to view image of tracing.
[2025-02-11] MEDS: ALBUTEROL SULF 2.5 MG/0.5ML(0.5%) NEB SOLN ONE (19:20)
--- NOTE | 2025-02-11 19:21 | DVH ---
EXAM: US Retroperitoneal Limited, Renal CLINICAL INDICATION: ramón TECHNIQUE: Real-time limited ultrasound of the retroperitoneum with image documentation. COMPARISON: None FINDINGS: RIGHT KIDNEY: Mild right hydronephrosis. Increased echogenicity of the right kidney parenchyma, li monique renal parenchymal disease. No stones. Right kidney measures 9.4 cm. LEFT KIDNEY: Mild left hydronephrosis. Left kidney measures up to 13.1 cm. No stones. BLADDER: Urinary Peralta catheter is decompressed by the peralta catheter. FREE FLUID: Ascites. OTHER FINDINGS: . IMPRESSION: Mild bilateral hydronephrosis.
[2025-02-11] MEDS: SODIUM BICARB 8.4% 50Meq/50ml SYR INJ IV ONE (20:04)
[2025-02-11] MEDS: DEXTROSE (50%) 50ML SYRG IV PRN (20:04)
[2025-02-11] MEDS: PHENYLEPHRINE INJ 80 MG in SODIUM CHL 0.9% 242 ML IV SCH (21:07)
[2025-02-11 21:51] LABS: Band Neutrophils % (manual) 4
[2025-02-11 21:52] LABS: Basophils % (manual) 0 (0.0-2.0); Lymphocytes % (manual) 70 (10.0-50.0); Metamyelocytes % 2; Monocytes % (manual) 4 (0-12); Myelocytes % 1
[2025-02-11 21:54] LABS: Blast Cells 2; Platelet Estimate Markedly Decreased; Reactive Lymphocytes 10
[2025-02-11] MEDS: CEFEPIME 1GM/ 50ML 50 ML IV SCH (21:55)
[2025-02-11 21:56] LABS: Macrocytosis Marked
[2025-02-11 22:11] LABS: Base Excess -26.4 mmol/L (-2.0-3.0)
--- NOTE | 2025-02-11 22:23 | DVHINCON2 ---
Date of service: February 11, [address] Whitman Reason for Consultation Possible GI bleed History of Present Illness 69-year-old female with a known history of lymphoma status post chemotherapy, associated history of altered mental status. Given her progressive shortness of breath patient was intubated. Patient is currently getting 2 units of packed RBC. Noted history of melanotic stools, is on a Protonix drip. Primary care and admitting team have spoken to the son explaining the critical situation. Patient is a full code as of yet. GI was consulted to monitor and manage the melena. Patient is critically ill with severe hyperkalemia thrombocytopenia and anemia on multiple pressors and in not a condition to undergo endoscopic evaluation at this time Past Medical History Splenic marginal zone lymphoma-refused CTX, hypertension, history of pneumonia;Anxiety Past Surgical History Tubal ligation Biopsy for lymphoma Family History: FH: heart attack G8 FATHER Hypertension G8 FATHER Ischemic heart disease G8 FATHER Allergies: Coded Allergies: NO KNOWN ALLERGIES (Unverified , 07/01/24) Home Meds Active Scripts Albuterol Sulfate (Albuterol Sulfate Hfa) 108 Mcg/Act Aer, 108 MCG IN Q4HPRN PRN, #1 AER Prov:LATA ACUNA MD 11/21/24 Prednisone (Prednisone) 20 Mg Tab, 20 MG PO DAILY, #7 MG Prov:LATA ACUNA MD 11/21/24 Ipratropium-Albuterol (Ipratropium [place]/Albut) 1 Brian Brian, 1 BRIAN IN TID, #60 ML Prov:LATA ACUNA MD 11/21/24 Levofloxacin Hemihydrate (LEVOFLOXACIN) 500 Mg Tab, 1 TAB PO DAILY, #7 TAB Prov:LATA ACUNA MD 11/21/24 Lactulose (Lactulose) 10 Gm Sami, 10 GM PO DAILYP PRN for 3 Days, #3 PACK Prov:ANKITA PERRY MD 08/10/24 Reported Medications Acyclovir (ZOVIRAX TABLET) 400 Mg Tb, 1 TAB PO, #60 TAB 3 Refills 11/20/24 Allopurinol (Allopurinol) 300 Mg Tab, 300 MG PO DAILY, TAB 11/20/24 Docusate Sodium (Colace) 100 Mg Cap, 1 CAP PO BID, #30 CAP 11/20/24 Ferrous Sulfate (FERROUS SULFATE) 325 Mg Tb, 1 TAB PO DAILY, #30 TAB 3 Refills 11/20/24 Current Medications Current Medications Medications (Trade) Dose Ordered Sig/Aida Route PRN Reason Start Time Stop Time Status Last Admin Calcium Gluconate/ Sodium Chloride 50 ml @ 100 mls/hr Q30M IV 02/11/25 09:00 02/11/25 09:59 DC 02/11/25 18:48 Norepinephrine Bitartrate 250 ml @ 3.75 mls/hr Q24H IV 02/11/25 09:00 02/11/25 19:08 Midazolam HCl 50 ml @ 1 mls/hr Q24H IV 02/11/25 12:00 Vasopressin 20 units/Sodium Chloride 100 ml @ 9 mls/hr Q11H7M IV 02/11/25 13:15 02/11/25 13:36 Epinephrine HCl 250 ml @ 7.5 mls/hr Q24H IV 02/11/25 13:30 02/11/25 13:37 Dopamine HCl/ Dextrose 250 ml @ 9.375 mls/ hr Q24H IV 02/11/25 13:30 02/11/25 13:46 Sodium Chloride 1,000 ml @ 120 mls/hr Q8H20M IV 02/11/25 13:45 02/11/25 16:29 DC Ondansetron HCl (Zofran) 4 mg Q4HP PRN IV NAUSEA / VOMITING 02/11/25 13:45 Morphine Sulfate 2 mg Q4HPRN PRN IV SEVERE PAIN (7-10 PAIN SCALE) 02/11/25 13:45 Nitroglycerin (Ntrostat Sublingual) 0.4 mg Q5MINP PRN SL FOR CHEST PAIN 02/11/25 13:45 Morphine Sulfate 2 mg Q30M PRN IV FOR CHEST PAIN 02/11/25 13:45 Vancomycin HCl 0 ml @ 0 mls/hr UD IV 02/11/25 14:00 Cefepime HCl 50 ml @ 12.5 mls/hr Q12HR IV 02/11/25 22:00 02/11/25 21:55 Metronidazole 100 ml @ 100 mls/hr Q8HR IV 02/11/25 14:00 02/11/25 21:54 Pantoprazole Sodium 50 ml @ 10 mls/hr Q5H IV 02/11/25 14:00 02/11/25 21:08 Diagnostic Test (Pha) (Accu-Chek Comfort Curve T) 1 strip Q2HR 02/11/25 18:00 02/11/25 21:08 Dextrose 50 ml UD PRN IV BLOOD SUGAR LESS THAN 70 02/11/25 16:30 02/11/25 20:04 Sodium Bicarbonate 150 ml/Dextrose 1,150 ml @ 150 mls/hr Q7H40M IV 02/11/25 17:00 02/11/25 20:49 DC 02/11/25 18:06 Phenylephrine HCl 80 mg/Sodium Chloride 250 ml @ 7.5 mls/hr Q24H IV 02/11/25 20:00 02/11/25 21:07 Sodium Bicarbonate 150 ml/Dextrose 1,150 ml @ 200 mls/hr Q5H45M IV 02/11/25 21:00 02/11/25 21:05 Vital Signs Vital Signs Date Time Temp Pulse Resp B/P (MAP) Pulse Ox O2 Delivery O2 Flow Rate FiO2 02/11/25 21:40 96.3 103 26 102/44 96.3 02/11/25 20:19 95 40 02/11/25 07:59 Nasal Cannula* 2 Physical Exam Thin cachectic lady intubated and sedated HEENT pupils Fixed and dilated Neck is supple CV is S1-S2 regular rate and rhythm Respiratory diminished breath sound bases GI sluggish bowel sounds but positive distention Extremities no edema GI ASST intubated/sedated Labs/Diagnostic Data Labs Test 02/11/25 22:03 02/11/25 19:13 02/11/25 17:38 02/11/25 12:01 Range/Units Blood Gas Specimen Type Arterial Blood Gas Sample Site Right fermoral Blood Gas Patient Temperature 37.0 Arterial Blood Date Drawn [id number] Arterial Blood pH 6.736 *L 7.350-7.450 Arterial Blood Partial Pressure CO2 50.6 H 32.0-45.0 mmHg Arterial Blood Partial Pressure O2 88.9 83.0-108.0 mmHg Arterial Blood HCO3 6.6 L 21.0-28.0 mmol/L Arterial Blood Oxygen Saturation 90.1 L 94.0-98.0 % Arterial Blood Base Excess -26.4 L -2.0-3.0 mmol/L Arterial Blood Oxyhemoglobin 88.6 L 94.0-98.0 % Arterial Blood Carboxyhemoglobin 0.6 0.5-1.5 % Arterial Blood Methemoglobin 1.1 0.0-1.5 % Jackson Test N/a Blood Gas Total Hemoglobin 5.80 *L 12.0-16.0 g/dL Blood Gas Set Respiration Rate 26.0 Blood Gas Modality Vent - ac FiO2 % 40.0 Blood Gas Tidal Volume 400.0 Blood Gas PEEP or CPAP 5.0 Blood Gas Critical Value Read Back yes Blood Gas Notified Whom adrien Armas md Blood Gas Notified Time [id number] Blood Gas Notified By braden Waggoner rrt Blood Gas Spontaneous Rate 20 Blood Gas Comments ph out of amr White Blood Count 25.5 #H 4.4-10.8 10^3/uL Red Blood Count 1.95 L 4.0-5.20 10^6/uL Hemoglobin 6.0 *L 12.2-16.2 g/dL Hematocrit 21.5 #L 36.0-46.0 % Mean Corpuscular Volume 110.4 #H 80.0-100.0 fL Mean Corpuscular Hemoglobin 31.0 28.0-32.0 pg Mean Corpuscular Hemoglobin Concent 28.1 L 32.0-36.0 g/dL Red Cell Distribution Width 19.2 H 11.8-14.3 % Platelet Count 10 *L 140-450 10^3/uL Mean Platelet Volume 10.0 6.9-10.8 fL Neutrophils (%) (Auto) 37.0-80.0 % Lymphocytes (%) (Auto) 10.0-50.0 % Monocytes (%) (Auto) 0.0-12.0 % Basophils (%) (Auto) 0.0-2.0 % Neutrophils # (Auto) 1.6-8.6 10 ^3/uL Lymphocytes # (Auto) 0.4-5.4 10 ^3/uL Monocytes # (Auto) 0-1.3 10 ^3/uL Differential Total Cells Counted 100.0 100 Immature Granulocytes % 8 Neutrophils % (Manual) 7 L 37.0-80.0 Band Neutrophils % (Manual) 4 Lymphocytes % (Manual) 70 H 10.0-50.0 Monocytes % (Manual) 4 0-12 Eosinophils % (Manual) 0 0-7 Basophils % (Manual) 0 0.0-2.0 Metamyelocytes % (manual) 2 Myelocytes % (Manual) 1 Promyelocytes % (Manual) 0 Blast Cells % (Manual) 2 Reactive Lymphocytes 10 Platelet Estimate Markedly decreased Macrocytosis Marked Vianca Cells Few Sodium Level 138 136-145 mmol/L Potassium Level 8.0 *H 3.5-5.1 mmol/L Chloride Level 105 98-107 mmol/L Carbon Dioxide Level < 10 *L 20-31 mmol/L Anion Gap 23.72990 H 5-15 Blood Urea Nitrogen 60 H 9-23 mg/dL Creatinine 1.75 #H 0.550-1.02 mg/dL Glomerular Filtration Rate Calc 31 >90 mL/min BUN/Creatinine Ratio 34.3 H 10.0-20.0 Serum Glucose 114 H 74-106 mg/dL Lactic Acid Level 20.0 *H 0.4-2.0 mmol/L Calcium Level 9.1 8.7-10.4 mg/dL Prothrombin Time 27.1 H 9.3-11.8 sec Prothrombin Time INR 2.83 H 0.9-1.15 Test 02/11/25 11:05 02/11/25 08:08 02/11/25 07:50 Range/Units Phosphorus Level 11.7 H 2.4-5.1 mg/dL Troponin I High Sensitivity 246 *H </=34 ng/L Urine Color Yellow Yellow Urine Clarity Ex.turbid Clear Urine pH 5.0 5.0-9.0 Urine Specific [place] 1.015 1.001-1.035 Urine Protein 1+ H Negative Urine Ketones Trace Negative Urine Blood 3+ H Negative /uL Urine Nitrite Negative Negative Urine Bilirubin Negative Negative Urine Urobilinogen Normal Negative mg/dL Urine Leukocyte Esterase Negative Negative /uL Urine RBC 5 0 - 4 /hpf Urine Microscopic WBC 2 0-5 /HPF Urine Squamous Epithelial Cells None seen <5 /hpf Urine Amorphous Crystals Few None Seen /hpf Urine Bacteria None seen None Seen /hpf Urine Mucus Few None Seen Urine Glucose Normal Normal mg/dL Nucleated Red Blood Cells 1.0 % Total Bilirubin 0.6 0.2-1.0 mg/dL Aspartate Amino Transferase (AST) 376 H 13-40 U/L Alanine Aminotransferase (ALT) 61 H 7-40 U/L Alkaline Phosphatase 274 H 46-116 U/L B-Type Natriuretic Peptide 129.51 0-100 pg/mL Total Protein 5.6 L 5.7-8.2 g/dL Albumin 3.2 3.2-4.8 g/dL Lipase 72 H 12-53 U/L CT SCAN ABD PELVIS IMPRESSION: Unchanged severe hepatosplenomegaly. Problems(with codes): (1) Metabolic encephalopathy (2) Sepsis (3) Acute respiratory failure (4) Weakness (5) Lymphoma (6) Shortness of breath (7) Thrombocytopenia (8) Anemia (9) Hepatosplenomegaly (10) Metabolic acidosis (11) Lactic acidosis Plan/Recommendation Assessment plan Overall this patient's prognosis is very poor and condition critical Patient is not in a stable condition for any endoscopic workup Continue IV Protonix drip Transfuse to hemoglobin over seven Platelet transfusion if the patient shows signs of bleeding Correct coagulopathy Replaced bicarb I will monitor the patient with you Plan discussed with: Other (Dr Whitman) JAYME STORM MD February 11, 2025 22:23
--- NOTE | 2025-02-11 23:28 | DVHINCON2 ---
Date of service: February 11, 2025 Referring Physician Michael Whitman MD Reason for Consultation Acute hypoxic respiratory failure requiring mechanical ventilator. History of Present Illness A 69-year-old woman with known past medical history of lymphoma status post chemotherapy, who presents to the hospital today with altered mental status, labored breathing, found to have hypotension. Note, history is obtained from ER records and after talking to patient's brother over the phone. Patient required intubation and mechanical ventilation due to worsened respiratory status. Patient received 2 units of packed RBC for melanotic stools, placed on Protonix drip. She required multiple vasopressors for hemodynamic support. Patient was admitted for further care, and pulmonary consultation is requested for evaluation and management of acute hypoxic respiratory failure requiring mechanical ventilator. Review of Systems: Unable to obtain d/t intubated status. Past Medical History: Splenic marginal zone lymphoma, hypertension, history of pneumonia Past Surgical History: None Medications: Reviewed. Allergies: No known drug allergies. Family History: HI, hypertension and heart disease. Social History: Nonsmoker. No alcohol or illicit drug use. Family History: FH: heart attack G8 FATHER Hypertension G8 FATHER Ischemic heart disease G8 FATHER Allergies: Coded Allergies: NO KNOWN ALLERGIES (Unverified , 07/01/24) Home Meds Active Scripts Albuterol Sulfate (Albuterol Sulfate Hfa) 108 Mcg/Act Aer, 108 MCG IN Q4HPRN PRN, #1 AER Prov:LATA ACUNA MD 11/21/24 Prednisone (Prednisone) 20 Mg Tab, 20 MG PO DAILY, #7 MG Prov:LATA ACUNA MD 11/21/24 Ipratropium-Albuterol (Ipratropium [place]/Albut) 1 Brian Brian, 1 BRIAN IN TID, #60 ML Prov:LATA ACUNA MD 11/21/24 Levofloxacin Hemihydrate (LEVOFLOXACIN) 500 Mg Tab, 1 TAB PO DAILY, #7 TAB Prov:LATA ACUNA MD 11/21/24 Lactulose (Lactulose) 10 Gm Sami, 10 GM PO DAILYP PRN for 3 Days, #3 PACK Prov:ANKITA PERRY MD 08/10/24 Reported Medications Acyclovir (ZOVIRAX TABLET) 400 Mg Tb, 1 TAB PO, #60 TAB 3 Refills 11/20/24 Allopurinol (Allopurinol) 300 Mg Tab, 300 MG PO DAILY, TAB 11/20/24 Docusate Sodium (Colace) 100 Mg Cap, 1 CAP PO BID, #30 CAP 11/20/24 Ferrous Sulfate (FERROUS SULFATE) 325 Mg Tb, 1 TAB PO DAILY, #30 TAB 3 Refills 11/20/24 Current Medications Current Medications Medications (Trade) Dose Ordered Sig/Aida Route PRN Reason Start Time Stop Time Status Last Admin Calcium Gluconate/ Sodium Chloride 50 ml @ 100 mls/hr Q30M IV 02/11/25 09:00 02/11/25 09:59 DC 02/11/25 18:48 Norepinephrine Bitartrate 250 ml @ 3.75 mls/hr Q24H IV 02/11/25 09:00 02/11/25 19:08 Midazolam HCl 50 ml @ 1 mls/hr Q24H IV 02/11/25 12:00 Vasopressin 20 units/Sodium Chloride 100 ml @ 9 mls/hr Q11H7M IV 02/11/25 13:15 02/11/25 13:36 Epinephrine HCl 250 ml @ 7.5 mls/hr Q24H IV 02/11/25 13:30 02/11/25 13:37 Dopamine HCl/ Dextrose 250 ml @ 9.375 mls/ hr Q24H IV 02/11/25 13:30 02/11/25 13:46 Sodium Chloride 1,000 ml @ 120 mls/hr Q8H20M IV 02/11/25 13:45 02/11/25 16:29 DC Ondansetron HCl (Zofran) 4 mg Q4HP PRN IV NAUSEA / VOMITING 02/11/25 13:45 Morphine Sulfate 2 mg Q4HPRN PRN IV SEVERE PAIN (7-10 PAIN SCALE) 02/11/25 13:45 Nitroglycerin (Ntrostat Sublingual) 0.4 mg Q5MINP PRN SL FOR CHEST PAIN 02/11/25 13:45 Morphine Sulfate 2 mg Q30M PRN IV FOR CHEST PAIN 02/11/25 13:45 Vancomycin HCl 0 ml @ 0 mls/hr UD IV 02/11/25 14:00 Cefepime HCl 50 ml @ 12.5 mls/hr Q12HR IV 02/11/25 22:00 02/11/25 21:55 Metronidazole 100 ml @ 100 mls/hr Q8HR IV 02/11/25 14:00 02/11/25 21:54 Pantoprazole Sodium 50 ml @ 10 mls/hr Q5H IV 02/11/25 14:00 02/11/25 21:08 Diagnostic Test (Pha) (Accu-Chek Comfort Curve T) 1 strip Q2HR 02/11/25 18:00 02/11/25 23:12 Dextrose 50 ml UD PRN IV BLOOD SUGAR LESS THAN 70 02/11/25 16:30 02/11/25 20:04 Sodium Bicarbonate 150 ml/Dextrose 1,150 ml @ 150 mls/hr Q7H40M IV 02/11/25 17:00 02/11/25 20:49 DC 02/11/25 18:06 Phenylephrine HCl 80 mg/Sodium Chloride 250 ml @ 7.5 mls/hr Q24H IV 02/11/25 20:00 02/11/25 21:07 Sodium Bicarbonate 150 ml/Dextrose 1,150 ml @ 200 mls/hr Q5H45M IV 02/11/25 21:00 02/11/25 21:05 Vital Signs Vital Signs Date Time Temp Pulse Resp B/P (MAP) Pulse Ox O2 Delivery O2 Flow Rate FiO2 02/11/25 22:32 97.0 100 26 100/40 97.0 02/11/25 20:19 95 40 02/11/25 07:59 Nasal Cannula* 2 Physical Exam Gen.: Patient lying in bed in medical ICU. Sedated, intubated on mechanical ventilator. Head: Normocephalic, atraumatic. Eyes: Blown pupils. Ears: Normal external anatomy. Throat: Endotracheal tube and orogastric tube in place. Neck: Supple, trachea midline. Chest: Transmitted breath sounds bilaterally. Decreased air entry bilaterally. No wheezing. Bibasilar crackles. Cardiovascular: Positive S1, positive S2. Regular rate and rhythm. Abdomen: Positive bowel sounds in all 4 quadrants. Soft, nontender, nondistended. : Huitron in place. Normal external genitalia. Rectal: Deferred. Skin: Warm, dry. Intact. Extremities: 2+ radial pulses bilaterally. No lower extremity edema. Neuro: Sedated. Labs/Diagnostic Data Labs Test 02/11/25 22:03 02/11/25 19:13 02/11/25 17:38 02/11/25 12:01 Range/Units Blood Gas Specimen Type Arterial Blood Gas Sample Site Right fermoral Blood Gas Patient Temperature 37.0 Arterial Blood Date Drawn [id number] Arterial Blood pH 6.736 *L 7.350-7.450 Arterial Blood Partial Pressure CO2 50.6 H 32.0-45.0 mmHg Arterial Blood Partial Pressure O2 88.9 83.0-108.0 mmHg Arterial Blood HCO3 6.6 L 21.0-28.0 mmol/L Arterial Blood Oxygen Saturation 90.1 L 94.0-98.0 % Arterial Blood Base Excess -26.4 L -2.0-3.0 mmol/L Arterial Blood Oxyhemoglobin 88.6 L 94.0-98.0 % Arterial Blood Carboxyhemoglobin 0.6 0.5-1.5 % Arterial Blood Methemoglobin 1.1 0.0-1.5 % Jackson Test N/a Blood Gas Total Hemoglobin 5.80 *L 12.0-16.0 g/dL Blood Gas Set Respiration Rate 26.0 Blood Gas Modality Vent - ac FiO2 % 40.0 Blood Gas Tidal Volume 400.0 Blood Gas PEEP or CPAP 5.0 Blood Gas Critical Value Read Back yes Blood Gas Notified Whom adrien Armas md Blood Gas Notified Time [id number] Blood Gas Notified By braden Waggoner rrt Blood Gas Spontaneous Rate 20 Blood Gas Comments ph out of amr White Blood Count 25.5 #H 4.4-10.8 10^3/uL Red Blood Count 1.95 L 4.0-5.20 10^6/uL Hemoglobin 6.0 *L 12.2-16.2 g/dL Hematocrit 21.5 #L 36.0-46.0 % Mean Corpuscular Volume 110.4 #H 80.0-100.0 fL Mean Corpuscular Hemoglobin 31.0 28.0-32.0 pg Mean Corpuscular Hemoglobin Concent 28.1 L 32.0-36.0 g/dL Red Cell Distribution Width 19.2 H 11.8-14.3 % Platelet Count 10 *L 140-450 10^3/uL Mean Platelet Volume 10.0 6.9-10.8 fL Neutrophils (%) (Auto) 37.0-80.0 % Lymphocytes (%) (Auto) 10.0-50.0 % Monocytes (%) (Auto) 0.0-12.0 % Basophils (%) (Auto) 0.0-2.0 % Neutrophils # (Auto) 1.6-8.6 10 ^3/uL Lymphocytes # (Auto) 0.4-5.4 10 ^3/uL Monocytes # (Auto) 0-1.3 10 ^3/uL Differential Total Cells Counted 100.0 100 Immature Granulocytes % 8 Neutrophils % (Manual) 7 L 37.0-80.0 Band Neutrophils % (Manual) 4 Lymphocytes % (Manual) 70 H 10.0-50.0 Monocytes % (Manual) 4 0-12 Eosinophils % (Manual) 0 0-7 Basophils % (Manual) 0 0.0-2.0 Metamyelocytes % (manual) 2 Myelocytes % (Manual) 1 Promyelocytes % (Manual) 0 Blast Cells % (Manual) 2 Reactive Lymphocytes 10 Platelet Estimate Markedly decreased Macrocytosis Marked [place] Cells Few Sodium Level 138 136-145 mmol/L Potassium Level 8.0 *H 3.5-5.1 mmol/L Chloride Level 105 98-107 mmol/L Carbon Dioxide Level < 10 *L 20-31 mmol/L Anion Gap 23.60980 H 5-15 Blood Urea Nitrogen 60 H 9-23 mg/dL Creatinine 1.75 #H 0.550-1.02 mg/dL Glomerular Filtration Rate Calc 31 >90 mL/min BUN/Creatinine Ratio 34.3 H 10.0-20.0 Serum Glucose 114 H 74-106 mg/dL Lactic Acid Level 20.0 *H 0.4-2.0 mmol/L Calcium Level 9.1 8.7-10.4 mg/dL Prothrombin Time 27.1 H 9.3-11.8 sec Prothrombin Time INR 2.83 H 0.9-1.15 Test 02/11/25 11:05 02/11/25 08:08 02/11/25 07:50 Range/Units Phosphorus Level 11.7 H 2.4-5.1 mg/dL Troponin I High Sensitivity 246 *H </=34 ng/L Urine Color Yellow Yellow Urine Clarity Ex.turbid Clear Urine pH 5.0 5.0-9.0 Urine Specific [place] 1.015 1.001-1.035 Urine Protein 1+ H Negative Urine Ketones Trace Negative Urine Blood 3+ H Negative /uL Urine Nitrite Negative Negative Urine Bilirubin Negative Negative Urine Urobilinogen Normal Negative mg/dL Urine Leukocyte Esterase Negative Negative /uL Urine RBC 5 0 - 4 /hpf Urine Microscopic WBC 2 0-5 /HPF Urine Squamous Epithelial Cells None seen <5 /hpf Urine Amorphous Crystals Few None Seen /hpf Urine Bacteria None seen None Seen /hpf Urine Mucus Few None Seen Urine Glucose Normal Normal mg/dL Nucleated Red Blood Cells 1.0 % Total Bilirubin 0.6 0.2-1.0 mg/dL Aspartate Amino Transferase (AST) 376 H 13-40 U/L Alanine Aminotransferase (ALT) 61 H 7-40 U/L Alkaline Phosphatase 274 H 46-116 U/L B-Type Natriuretic Peptide 129.51 0-100 pg/mL Total Protein 5.6 L 5.7-8.2 g/dL Albumin 3.2 3.2-4.8 g/dL Lipase 72 H 12-53 U/L Assessment Impression: Acute hypoxic respiratory failure On mechanical ventilator Acute kidney injury Hyperkalemia Metabolic acidosis Lactic acidosis Anemia Thrombocytopenia Plan: s/p intubation on mechanical ventilator. On AC mode; RR 20, VT 400, PEEP 5, FiO2 100% Increase RR to 26 ABG reviewed, notable for severe acidemia d/t metabolic acidosis and respiratory acidosis Started bicarb drip CXR image and report reviewed. Devices in place. Multifocal airspace opacities. Titrate FIO2 to keep O2 saturation above 90%. VAP bundle. Daily ABG and CXR while intubated Sedate for ventilator synchrony Patient with blown pupils Continue antibiotics. F/u cultures. On multiple pressors for hemodynamic support Levophed 30 mcg/min, epinephrine 10 mcg/min, dopamine 8 mcg/min and vasopressin 0.03 units/min. Titrate to keep mean arterial pressure greater than 65 mmHg Accu-Cheks, ISS Monitor hemoglobin Transfuse to keep hemoglobin above 7.0 g/dL. Monitor platelet count d/t thrombocytopenia Follow up GI recommendations Continue Protonix drip Monitor renal function Nephrology recs appreciated. Monitor electrolytes. Supplement as necessary. Monitor ins and outs. GI prophylaxis. DVT prophylaxis. Prognosis: Poor given patient's multiple co-morbidities. High likelihood of demise. Condition: Critical Rest of plan per hospitalist and other consultants. A total of 36 minutes of critical care time was spent reviewing the patient record, examining the patient, making a diagnostic and therapeutic plan, discussing this plan with the medical personnel, following up on diagnostic studies and following the patient for clinical stability excluding any and all procedures. At least 50% of this time was spent in direct, [id number] contact. Thank you, Dr. Whitman, for allowing me to participate in this patient's care. Further recommendations will depend on the patient's clinical course. Please do not hesitate to contact me if you have any questions or concerns. This medical document was created using an electronic medical record system with [employer] dictation system. Although these documentations are being carefully reviewed, there may still be some phonetic and typographical changes. The errors are purely typographical, due to imperfection on the software program, and do not reflect any compromise in the patient's medical care. Plan discussed with: Other (FAITH Hernández/ Dr. Whitman) JUAN DIEGO ARMAS MD February 11, 2025 23:28
[2025-02-12] VITALS (42 sets, daily range): BP systolic 62–99; BP diastolic 34–50; PULSE 100–119; RESP 26–35; TEMP 97.9–99; O2SAT 90–96
[2025-02-12 00:46] LABS: Base Excess -26.2 mmol/L (-2.0-3.0)
[2025-02-12 01:35] LABS: Hematocrit 23.2 % (36.0-46.0); Mean Corpuscular Hemoglobin 31.1 pg (28.0-32.0); Mean Corpuscular Hgb Conc. 28.1 g/dL (32.0-36.0); Mean Corpuscular Volume 110.7 fL (80.0-100.0); Red Cell Distribution Width 19.7 % (11.8-14.3); White Blood Cell 19.4 10^3/uL (4.4-10.8)
[2025-02-12 02:07] LABS: Hemoglobin 6.5 g/dL (12.2-16.2); Platelet Count (auto) 20 10^3/uL (140-450)
[2025-02-12 02:09] LABS: Basophils % (manual) 0 (0.0-2.0); Eosinophils % (manual) 0 (0-7); Metamyelocytes % 0; Promyelocytes % 0
[2025-02-12] MEDS: SODIUM BICARB 8.4% 50Meq/50ml SYR INJ IV ONE (02:36)
[2025-02-12] MEDS: CALCIUM GLUC 1,000mg/50ml-NS 50 ML IV ONE ×3 (02:36→06:22)
[2025-02-12] MEDS: DEXTROSE (50%) 50ML SYRG IV ONE (02:41)
[2025-02-12] MEDS: ALBUTEROL SULF 2.5 MG/0.5ML(0.5%) NEB SOLN NEB ONE (02:50)
[2025-02-12] MEDS: InsuLIN REG 1unit/0.01ml Soln (100units/ml) IV ONE (02:53)
[2025-02-12 03:55] LABS: Band Neutrophils % (manual) 1; Blast Cells 2; Lymphocytes % (manual) 87 (10.0-50.0); Monocytes % (manual) 1 (0-12); Myelocytes % 2; Reactive Lymphocytes 2
[2025-02-12 03:56] LABS: Large Platelets FEW; Macrocytosis Marked; Platelet Estimate Markedly Decreased
[2025-02-12] MEDS: PHENYLEPHRINE IV 250 ML IV ONE (04:05)
[2025-02-12] MEDS: PHENYLEPHRINE HCL 10 MG/ML VL ONE (04:05)
[2025-02-12 05:24] LABS: Hematocrit 25.1 % (36.0-46.0); Hemoglobin 7.5 g/dL (12.2-16.2)
[2025-02-12 05:26] LABS: Mean Corpuscular Hemoglobin 31.2 pg (28.0-32.0); Mean Corpuscular Hgb Conc. 29.7 g/dL (32.0-36.0); Mean Corpuscular Volume 105.1 fL (80.0-100.0); Red Blood Cells 2.39 10^6/uL (4.0-5.20); Red Cell Distribution Width 18.8 % (11.8-14.3); White Blood Cell 17.2 10^3/uL (4.4-10.8)
[2025-02-12] MEDS: SODIUM BICARB 8.4% 50Meq/50ml SYR Vial IV ONE ×2 (05:41→06:34)
[2025-02-12 05:43] LABS: Basophils % (manual) 0 (0.0-2.0); Blast Cells 0; Eosinophils % (manual) 0 (0-7); Metamyelocytes % 0; Monocytes % (manual) 0 (0-12); Platelet Count (auto) 16 10^3/uL (140-450); Promyelocytes % 0
[2025-02-12 06:03] LABS: Anion Gap 35.00001 (5-15); BUN/Creatinine Ratio 26.2 (10.0-20.0); Bilirubin, Total 0.7 mg/dL (0.2-1.0); Calcium 8.7 mg/dL (8.7-10.4); Chloride 98 mmol/L (98-107); Sodium 143 mmol/L (136-145)
--- NOTE | 2025-02-12 06:04 | DVH ---
EXAM: XY CHEST PORTABLE HISTORY: respiratory failure COMPARISON: XY CHEST PORTABLE on DOS: 02/11/25, XY CHEST XRAY 1 VIEW on DOS: 11/18/24, XY CHEST PORTABLE on DOS: 11/13/24 TECHNIQUE: Portable AP view of the chest was performed. FINDINGS: Endotracheal tube is re-identified with its tip 3.5 cm above the tricia. OG tube is re-identified, a lthough the tip is not well visualized here. No pneumothorax. There is diffuse interstitial prominenc e, greatest centrally, improved. There are infiltrates in the right mid to lower lung, similar to th at seen previously. The heart is not enlarged. IMPRESSION: 1. Mechanical ventilation. 2. Improved interstitial prominence which may indicate improved CHF. 3. Stable right mid to lower lung infiltrate.
[2025-02-12] MEDS: ALBUMIN 25% 100 ML IV ONE ×2 (06:35→06:36)
[2025-02-12] MEDS: SODIUM BICARB 8.4% 50Meq/50ml SYR INJ ONE (06:35)
[2025-02-12 06:40] LABS: Potassium 6.8 mmol/L (3.5-5.1)
[2025-02-12 06:41] LABS: Alanine Aminotransferase 844 U/L (7-40); Alkaline Phosphatase 340 U/L (46-116); Aspartate Aminotransferase 5549 U/L (13-40); Blood Urea Nitrogen 59 mg/dL (9-23); Carbon Dioxide < 10 mmol/L (20-31); Glucose 115 mg/dL (74-106); Total Protein 5.4 g/dL (5.7-8.2)
[2025-02-12 07:10] LABS: Base Excess -23.5 mmol/L (-2.0-3.0)
[2025-02-12 07:10] LABS: Band Neutrophils % (manual) 2; Lymphocytes % (manual) 83 (10.0-50.0); Macrocytosis Moderate; Myelocytes % 2; Reactive Lymphocytes 5
[2025-02-12 07:12] LABS: Large Platelets FEW; Platelet Estimate Marked
[2025-02-12 07:39] LABS: Creatinine, Urine 79.39 mg/dL (30.0-125.0); Urine Protein/Creatinine Ratio 2.2
--- NOTE | 2025-02-12 09:24 | DVHPN2 ---
Progress Note Date Seen: February 12, 2025 Resident Creating Document: ILANA GILLIS RESIDENT Medical Necessity Reason Pt with a Central, PICC or Fol: No Subjective Review of Systems This is a 69-year-old female with PMHx lymphoma, pneumonia and hypertension who was BIBA due to the chief complaint of altered mental status and shortness of breaths for the past week. Patient is currently intubated and mechanically ventilated. Per patient's brother, who the patient lives with, she has been on infusion therapy for the past 2 months, has been experiencing progressive generalized weakness shortness of breaths for the past week starting 02/07. She was too weak to eat or drink or come out of the bed. Patient had chills and shortness of breaths but no cough. She was mostly in her bed for the past week, patient became confused and disoriented 02/11 and therefore EMS was called. Per chart review, patient was hypotensive with blood pressure 70 systolic and blood glucose in 50s. Patient is experiencing melena. 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 Patient was given rituximab on December 03, unable to complete the dose given hypersensitivity. Patient is scheduled for [place] IV infusion containing Vandemis and Benralizumab 02/11/2025 but given her low hemoglobin on routine labs, hematology office recommended the patient to go to the ER but could not reach out. On arrival the ER, patient was tachycardic, afebrile, tachypneic with blood pressure 90/50 mmHg and unable to protect airway, there was she was intubated and mechanically ventilated. WBC 11, H&H 5/17, MCV 100, platelets 10. CMP showed potassium 5.7 going up to 7, bicarb 11, BUN/creatinine 55/1.24, GFR 44, lactic acid elevated at 9, transaminitis, elevated troponins, ABG showed pH 6.9, bicarb 12, CO2 55. UA showed 3+ blood. Past medical history: Splenic marginal zone lymphoma-refused CTX, hypertension, history of pneumonia Past surgical history: None Home medications: Spironolactone, docusate 02/11 - Patient seen and examined in the ER. Pupils are sluggish, RASS -4, urine output 20cc in the past 12 hours. 02/12 - patient's code status was changed to DNR overnight. Patient in the morning. Objective vital signs Vital Sign Date Time Temp Pulse Resp B/P (MAP) Pulse Ox O2 Delivery O2 Flow Rate FiO2 02/12/25 06:45 97.9 111 28 62/34 (43) 92 97.9 02/12/25 06:43 40 02/12/25 06:00 Mechanical Ventilator+ 02/11/25 07:59 2 Total Intake and Output 02/11/25 02/11/25 02/12/25 15:00 23:00 07:00 Intake Total 2828.7000 ml 4961.185 ml 4980.564 ml Output Total 0 ml 0 ml 100 ml Balance 2828.7000 ml 4961.185 ml 4880.564 ml medications Current Medications Medications Dose Ordered Sig/Aida Route Start Time Stop Time Status Last Admin Dose Admin Norepinephrine Bitartrate 250 ml @ 3.75 mls/hr Q24H IV 02/11/25 09:00 02/12/25 04:05 56.25 MLS/HR Midazolam HCl 50 ml @ 1 mls/hr Q24H IV 02/11/25 12:00 Vasopressin 20 units/Sodium Chloride 100 ml @ 9 mls/hr Q11H7M IV 02/11/25 13:15 02/12/25 04:13 9 MLS/HR Epinephrine HCl 250 ml @ 7.5 mls/hr Q24H IV 02/11/25 13:30 02/11/25 13:37 37.5 MLS/HR Dopamine HCl/ Dextrose 250 ml @ 9.375 mls/ hr Q24H IV 02/11/25 13:30 02/12/25 01:12 20.625 MLS/HR Ondansetron HCl 4 mg Q4HP PRN IV 02/11/25 13:45 Morphine Sulfate 2 mg Q4HPRN PRN IV 02/11/25 13:45 Nitroglycerin 0.4 mg Q5MINP PRN SL 02/11/25 13:45 Morphine Sulfate 2 mg Q30M PRN IV 02/11/25 13:45 Vancomycin HCl 0 ml @ 0 mls/hr UD IV 02/11/25 14:00 Cefepime HCl 50 ml @ 12.5 mls/hr Q12HR IV 02/11/25 22:00 02/11/25 21:55 12.5 MLS/HR Metronidazole 100 ml @ 100 mls/hr Q8HR IV 02/11/25 14:00 02/12/25 06:27 100 MLS/HR Pantoprazole Sodium 50 ml @ 10 mls/hr Q5H IV 02/11/25 14:00 02/12/25 06:27 10 MLS/HR Diagnostic Test (Pha) 1 strip Q2HR 02/11/25 18:00 02/12/25 06:16 1 STRIP Dextrose 50 ml UD PRN IV 02/11/25 16:30 02/11/25 20:04 50 ML Phenylephrine HCl 80 mg/Sodium Chloride 250 ml @ 7.5 mls/hr Q24H IV 02/11/25 20:00 02/12/25 06:17 33.75 MLS/HR Sodium Bicarbonate 150 ml/Dextrose 1,150 ml @ 200 mls/hr Q5H45M IV 02/11/25 21:00 02/12/25 01:49 200 MLS/HR Examination Examination could not be performed, with the patient was prior to evaluation laboratory and microbiology Laboratory Tests 02/12/25 05:08 Test 02/12/25 05:08 Range/Units Serum Glucose 115 H 74-106 mg/dL Microbiology Date/Time Source Procedure Growth Status 02/11/25 07:50 Blood Blood Culture - Preliminary NO GROWTH AFTER 24 HOURS OF INCUBATION. 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 Patient was given rituximab on December 03, unable to complete the dose given hypersensitivity. Patient is scheduled for [place] IV infusion containing Vandemis and Benralizumab 02/11/2025 but given her low hemoglobin on routine labs, hematology office recommended the patient to go to the ER but could not reach out. Plan: patient's code status was changed to DNR overnight. Patient in the morning. Discussed with Dr. Ruiz Plan discussed with: Other (nurse) My Orders My Orders Orders - ILANA GILLIS Procedure Category Date Status Time Calcitriol(125 Di-Oh LAB 02/11/25 In Process Vit D) 16:04 Strict I & O BRIGIDA 02/11/25 In Process 16:04 Kidney US 02/11/25 Resulted 17:17 Communication Order ORDERS 02/11/25 Transmitted 17:18 CC Plasma Assessment Blood Product Administration S: [id number] ILANA GILLIS February 12, 2025 09:24 TIMO RUIZ MD February 12, 2025 18:50
--- NOTE | 2025-02-12 12:02 | DVHDS2 ---
Summary Date of Admission February 11, 2025 at 13:43 Date and Time of Expiration: February 12, 2025 07:51 Labs/Diagnostic Data: Laboratory Results Test 02/12/25 07:06 02/12/25 06:16 02/12/25 05:08 02/11/25 19:13 Blood Gas Specimen Type Arterial Blood Gas Sample Site Arterial line Blood Gas Patient Temperature 37.0 Arterial Blood Date Drawn [id number] Arterial Blood pH 6.931 (7.350-7.450) Arterial Blood Partial Pressure CO2 34.7 mmHg (32.0-45.0) Arterial Blood Partial Pressure O2 68.1 mmHg (83.0-108.0) Arterial Blood HCO3 7.1 mmol/L (21.0-28.0) Arterial Blood Oxygen Saturation 86.4 % (94.0-98.0) Arterial Blood Base Excess -23.5 mmol/L (-2.0-3.0) Arterial Blood Oxyhemoglobin 85.4 % (94.0-98.0) Arterial Blood Carboxyhemoglobin 0.1 % (0.5-1.5) Arterial Blood Methemoglobin 1.1 % (0.0-1.5) Jackson Test N/a Blood Gas Total Hemoglobin 7.30 g/dL (12.0-16.0) Blood Gas Set Respiration Rate 26.0 Blood Gas Modality Vent - ac FiO2 % 40.0 Blood Gas Tidal Volume 500.0 Blood Gas PEEP or CPAP 5.0 Blood Gas Critical Value Read Back yes Blood Gas Notified Whom adrien brar md Blood Gas Notified Time [id number] Blood Gas Notified By green chain marker olena leung POC Glucose 86 mg/dl (70-106) White Blood Count 17.2 10^3/uL (4.4-10.8) Red Blood Count 2.39 10^6/uL (4.0-5.20) Hemoglobin 7.5 g/dL (12.2-16.2) Hematocrit 25.1 % (36.0-46.0) Mean Corpuscular Volume 105.1 fL (80.0-100.0) Mean Corpuscular Hemoglobin 31.2 pg (28.0-32.0) Mean Corpuscular Hemoglobin Concent 29.7 g/dL (32.0-36.0) Red Cell Distribution Width 18.8 % (11.8-14.3) Platelet Count 16 10^3/uL (140-450) Mean Platelet Volume 7.4 fL (6.9-10.8) Neutrophils (%) (Auto) % (37.0-80.0) Lymphocytes (%) (Auto) % (10.0-50.0) Monocytes (%) (Auto) % (0.0-12.0) Basophils (%) (Auto) % (0.0-2.0) Neutrophils # (Auto) 10 ^3/uL (1.6-8.6) Lymphocytes # (Auto) 10 ^3/uL (0.4-5.4) Monocytes # (Auto) 10 ^3/uL (0-1.3) Differential Total Cells Counted 100.0 (100) Neutrophils % (Manual) 8 (37.0-80.0) Band Neutrophils % (Manual) 2 Lymphocytes % (Manual) 83 (10.0-50.0) Monocytes % (Manual) 0 (0-12) Eosinophils % (Manual) 0 (0-7) Basophils % (Manual) 0 (0.0-2.0) Metamyelocytes % (manual) 0 Myelocytes % (Manual) 2 Promyelocytes % (Manual) 0 Blast Cells % (Manual) 0 Reactive Lymphocytes 5 Platelet Estimate Marked Large Platelets Few Macrocytosis Moderate [place] Cells Few Sodium Level 143 mmol/L (136-145) Potassium Level 6.8 mmol/L (3.5-5.1) Chloride Level 98 mmol/L (98-107) Carbon Dioxide Level < 10 mmol/L (20-31) Anion Gap 35.49917 (5-15) Blood Urea Nitrogen 59 mg/dL (9-23) Creatinine 2.25 mg/dL (0.550-1.02) Glomerular Filtration Rate Calc 23 mL/min (>90) BUN/Creatinine Ratio 26.2 (10.0-20.0) Serum Glucose 115 mg/dL (74-106) Uric Acid 21.0 mg/dL (3.1-7.8) Calcium Level 8.7 mg/dL (8.7-10.4) Total Bilirubin 0.7 mg/dL (0.2-1.0) Aspartate Amino Transferase (AST) 5549 U/L (13-40) Alanine Aminotransferase (ALT) 844 U/L (7-40) Alkaline Phosphatase 340 U/L (46-116) Total Protein 5.4 g/dL (5.7-8.2) Albumin 3.0 g/dL (3.2-4.8) Random Vancomycin Level 24.6 ug/mL (5-10) Blood Gas Spontaneous Rate 20 Blood Gas Comments ph out of amr Test 02/11/25 17:38 02/11/25 12:01 02/11/25 11:05 02/11/25 08:08 Immature Granulocytes % 8 Lactic Acid Level 20.0 mmol/L (0.4-2.0) Prothrombin Time 27.1 sec (9.3-11.8) Prothrombin Time INR 2.83 (0.9-1.15) Phosphorus Level 11.7 mg/dL (2.4-5.1) Troponin I High Sensitivity 246 ng/L (</=34) Urine Color Yellow (Yellow) Urine Clarity Ex.turbid (Clear) Urine pH 5.0 (5.0-9.0) Urine Specific [place] 1.015 (1.001-1.035) Urine Protein 1+ (Negative) Urine Ketones Trace (Negative) Urine Blood 3+ /uL (Negative) Urine Nitrite Negative (Negative) Urine Bilirubin Negative (Negative) Urine Urobilinogen Normal mg/dL (Negative) Urine Leukocyte Esterase Negative /uL (Negative) Urine RBC 5 /hpf (0 - 4) Urine Microscopic WBC 2 /HPF (0-5) Urine Squamous Epithelial Cells None seen /hpf (<5) Urine Amorphous Crystals Few /hpf (None Seen) Urine Bacteria None seen /hpf (None Seen) Urine Mucus Few (None Seen) Urine Creatinine 79.39 mg/dL (30.0-125.0) Urine Protein/Creatinine Ratio 2.20 Urine Sodium 21 mmol/L (40-220) Urine Potassium 77 mmol/L (12-62) Urine Glucose Normal mg/dL (Normal) Urine Total Protein 175.0 mg/dL (1-14) Test 02/11/25 07:50 Nucleated Red Blood Cells 1.0 % B-Type Natriuretic Peptide 129.51 pg/mL (0-100) Lipase 72 U/L (12-53) Other Laboratory Tests 02/12/25 05:08 Brief Hx & Hospital Course: 69-year-old female with a known history of lymphoma status post chemotherapy was brought in with the paramedics with altered mental status, unlabored breathing found to have acute metabolic encephalopathy as well as acute hypoxic respiratory failure requiring intubation on mechanical ventilation. Patient was found to have hypovolemic hemorrhagic shock with acute GI bleed. Patient was started on IV Protonix drip multiple vasopressors. The patient quickly decompensated into multiorgan failure.. Patient was given multiple units of packed RBC. Family was updated who requested DNR DNI . Eventually the patient on 02/12/2025. y Final Diagnosis/Problems List 1. Acute upper gastrointestinal bleed 2. Multiorgan failure 3. Lymphoma Discharge Disposition: at [facility] MARIELY ALVAREZ MD February 12, 2025 12:02
[2025-02-12] MEDS ORDERED: CEFEPIME 1GM/ 50ML 50 ML IV SCH (18:00)
--- NOTE | 2025-02-12 21:18 | DVHPN2 ---
Progress Note - Dictate Date Seen: February 12, 2025 Medical Necessity Reason Pt with a Central, PICC or Fol: No Subjective Patient's code status was changed to DNR overnight. vital signs Vital Sign Date Time Temp Pulse Resp B/P (MAP) Pulse Ox O2 Delivery O2 Flow Rate FiO2 02/12/25 06:45 97.9 111 28 62/34 (43) 92 97.9 02/12/25 06:43 40 02/12/25 06:00 Mechanical Ventilator+ 02/11/25 07:59 2 Total Intake and Output 02/11/25 02/11/25 02/12/25 15:00 23:00 07:00 Intake Total 2828.7000 ml 4961.185 ml 4980.564 ml Output Total 0 ml 0 ml 100 ml Balance 2828.7000 ml 4961.185 ml 4880.564 ml medications Current Medications Medications Dose Ordered Sig/Aida Route Start Time Stop Time Status Last Admin Dose Admin Norepinephrine Bitartrate 250 ml @ 3.75 mls/hr Q24H IV 02/11/25 09:00 02/12/25 04:05 56.25 MLS/HR Midazolam HCl 50 ml @ 1 mls/hr Q24H IV 02/11/25 12:00 Vasopressin 20 units/Sodium Chloride 100 ml @ 9 mls/hr Q11H7M IV 02/11/25 13:15 02/12/25 04:13 9 MLS/HR Epinephrine HCl 250 ml @ 7.5 mls/hr Q24H IV 02/11/25 13:30 02/11/25 13:37 37.5 MLS/HR Dopamine HCl/ Dextrose 250 ml @ 9.375 mls/ hr Q24H IV 02/11/25 13:30 02/12/25 01:12 20.625 MLS/HR Ondansetron HCl 4 mg Q4HP PRN IV 02/11/25 13:45 Morphine Sulfate 2 mg Q4HPRN PRN IV 02/11/25 13:45 Nitroglycerin 0.4 mg Q5MINP PRN SL 02/11/25 13:45 Morphine Sulfate 2 mg Q30M PRN IV 02/11/25 13:45 Vancomycin HCl 0 ml @ 0 mls/hr UD IV 02/11/25 14:00 Metronidazole 100 ml @ 100 mls/hr Q8HR IV 02/11/25 14:00 02/12/25 06:27 100 MLS/HR Pantoprazole Sodium 50 ml @ 10 mls/hr Q5H IV 02/11/25 14:00 02/12/25 06:27 10 MLS/HR Diagnostic Test (Pha) 1 strip Q2HR 02/11/25 18:00 02/12/25 06:16 1 STRIP Dextrose 50 ml UD PRN IV 02/11/25 16:30 02/11/25 20:04 50 ML Phenylephrine HCl 80 mg/Sodium Chloride 250 ml @ 7.5 mls/hr Q24H IV 02/11/25 20:00 02/12/25 06:17 33.75 MLS/HR Sodium Bicarbonate 150 ml/Dextrose 1,150 ml @ 200 mls/hr Q5H45M IV 02/11/25 21:00 02/12/25 01:49 200 MLS/HR Cefepime HCl 50 ml @ 12.5 mls/hr DAILY@1800 IV 02/12/25 18:00 objective General: Pupils are sluggish to respond, with dilated, extremities are cold Cardiovascular: Feeble Pulses, Regular S1 and S2. No murmurs, gallops or rubs. No JVD elevation. No pedal edema Respiratory: Intubated and mechanically ventilated Abdomen: Soft, distended, hypoactive bowel sounds, no rebound tenderness, massive hepatosplenomegaly Genitourinary: Huitron catheter + MSK/skin: Mobilizes 4 limbs. Skin is dry and warm Neurological: Intubated Psych/Mental Status: A/Ox3 laboratory and microbiology Laboratory Tests 02/12/25 05:08 Test 02/12/25 05:08 Range/Units Serum Glucose 115 H 74-106 mg/dL Assessment/Plan Patient is a 69-year-old Female presents to the hospital with: Septic shock (severe) Hemorrhagic shock Coma GI bleed anemia Acute hypoxic respiratory failure encephalopathy Lymphoma Recommendation Patient is on 4 pressors already, she was brought in with GI bleed/ acute hypoxic respiratory failure, intubated immediately in ER She is not on any sedation but not following commands pupils are sluggish. Blood cultures pressor support Broad spectrum Abx: IV Vancomycin per pharmacy/ Cefepime GI consult Blood transfusion: defer to primary I am concerned of hypoxic / hypotensive brain injury, unclear how long she was hypoxic at home. She is not on sedation and not following commands Plan discussed with Dr guajardo / RN Prognosis very poor Critical time 35 minutes spent She is full code Thank you for consult CC Plasma Assessment Blood Product Administration S: [id number] CHARISSA RUIZ MD February 12, 2025 21:18
--- NOTE | 2025-02-12 23:48 | DVHPN2 ---
Progress Note - Dictate Date Seen: February 12, 2025 Medical Necessity Reason Pt with a Central, PICC or Fol: Yes The following are medically ne: Peralta Catheter Reason for peralta catheter: Strict I&O Subjective Patient seen and examined at bedside. Sedated, intubated on mechanical ventilator. Overnight events reviewed. vital signs Vital Sign Date Time Temp Pulse Resp B/P (MAP) Pulse Ox O2 Delivery O2 Flow Rate FiO2 02/12/25 06:45 97.9 111 28 62/34 (43) 92 97.9 02/12/25 06:43 40 02/12/25 06:00 Mechanical Ventilator+ 02/11/25 07:59 2 Total Intake and Output 02/11/25 02/11/25 02/12/25 15:00 23:00 07:00 Intake Total 2828.7000 ml 4961.185 ml 4980.564 ml Output Total 0 ml 0 ml 100 ml Balance 2828.7000 ml 4961.185 ml 4880.564 ml objective Gen.: Patient lying in bed in medical ICU. Sedated, intubated on mechanical ventilator. Head: Normocephalic, atraumatic. Eyes: Pupils sluggish Ears: Normal external anatomy. Throat: Endotracheal tube and orogastric tube in place. Neck: Supple, trachea midline. Chest: Transmitted breath sounds bilaterally. Decreased air entry bilaterally. No wheezing. Bibasilar crackles. Cardiovascular: Positive S1, positive S2. Regular rate and rhythm. Abdomen: Positive bowel sounds in all 4 quadrants. Soft, nontender, nondistended. : Peralta in place. Normal external genitalia. Rectal: Deferred. Skin: Warm, dry. Intact. Extremities: 2+ radial pulses bilaterally. No lower extremity edema. Neuro: Sedated. laboratory and microbiology Laboratory Tests 02/12/25 05:08 Test 02/12/25 05:08 Range/Units Serum Glucose 115 H 74-106 mg/dL Assessment/Plan Impression: Acute hypoxic respiratory failure On mechanical ventilator Acute kidney injury Hyperkalemia Metabolic acidosis Lactic acidosis Anemia Thrombocytopenia Events: Remains on vent support On AC mode; RR 26, VT 500, PEEP 5, FiO2 40% Note, patient's code status was changed to DNR overnight Remains on multiple pressors for hemodynamic supoort Titrate to keep mean arterial pressure greater than 65 mmHg Concern for anoxic brain injury Follow up Neuro recommendations Continue antibiotics Monitor platelet count d/t thrombocytopenia Prognosis is very poor ABG reviewed, notable for severe acidemia d/t metabolic acidosis and respiratory acidosis CXR reviewed, demonstrates improved interstitial prominence which may indicate improved CHF. Stable right mid to lower lung infiltrate. Labs and imaging reviewed. Rest of plan as noted below. Plan: s/p intubation on mechanical ventilator. On AC mode; RR 26, VT 500, PEEP 5, FiO2 40% Titrate FIO2 to keep O2 saturation above 90%. VAP bundle. Daily ABG and CXR while intubated Sedate for ventilator synchrony Continue antibiotics. F/u cultures. On multiple pressors for hemodynamic support Titrate to keep mean arterial pressure greater than 65 mmHg Accu-Cheks, ISS Monitor hemoglobin Transfuse to keep hemoglobin above 7.0 g/dL. Monitor platelet count d/t thrombocytopenia Follow up GI recommendations Protonix drip Monitor renal function Nephrology recs appreciated. Monitor electrolytes. Supplement as necessary. Monitor ins and outs. GI prophylaxis. DVT prophylaxis. Prognosis: Poor given patient's multiple co-morbidities. Condition: Critical Rest of plan per hospitalist and other consultants. A total of 35 minutes of critical care time was spent reviewing the patient record, examining the patient, making a diagnostic and therapeutic plan, discussing this plan with the medical personnel, following up on diagnostic studies and following the patient for clinical stability excluding any and all procedures. At least 50% of this time was spent in direct, [id number] contact. Thank you, Dr. Whitman, for allowing me to participate in this patient's care. Further recommendations will depend on the patient's clinical course. Please do not hesitate to contact me if you have any questions or concerns. This medical document was created using an electronic medical record system with [employer] dictation system. Although these documentations are being carefully reviewed, there may still be some phonetic and typographical changes. The errors are purely typographical, due to imperfection on the software program, and do not reflect any compromise in the patient's medical care. Plan discussed with: Other (RN, ) CC Plasma Assessment Blood Product Administration S: [id number] JUAN DIEGO GOLDSTEIN MD February 12, 2025 23:47
== END 2025-02-12 07:51 | DRG 871 ==
LOC: EDBD 07:33 → ER 07:36 → OVERFLOW 13:43
PROVIDERS: ADMIT Internal Medicine; ATTEND Internal Medicine
PROC: 06HY33Z Insertion of Infusion Device into Lower Vein, Percutaneous Approach (ICD-10-PCS; principal; 2025-02-11)
PROC: 0BH17EZ Insertion of Endotracheal Airway into Trachea, Via Natural or Artificial Opening (ICD-10-PCS; 2025-02-11)
PROC: 5A1935Z Respiratory Ventilation, Less than 24 Consecutive Hours (ICD-10-PCS; 2025-02-11)
PROC: 30233N1 Transfusion of Nonautologous Red Blood Cells into Peripheral Vein, Percutaneous Approach (ICD-10-PCS; 2025-02-11)
PROC: 30233R1 Transfusion of Nonautologous Platelets into Peripheral Vein, Percutaneous Approach (ICD-10-PCS; 2025-02-11)
PROC: 30233K1 Transfusion of Nonautologous Frozen Plasma into Peripheral Vein, Percutaneous Approach (ICD-10-PCS; 2025-02-12)
DX: A41.9 Sepsis, unspecified organism (principal); E88.3 Tumor lysis syndrome; G93.41 Metabolic encephalopathy; J96.01 Acute respiratory failure with hypoxia; N17.0 Acute kidney failure with tubular necrosis; R65.21 Severe sepsis with septic shock; J18.9 Pneumonia, unspecified organism; I21.A1 Myocardial infarction type 2; K92.2 Gastrointestinal hemorrhage, unspecified; E87.4 Mixed disorder of acid-base balance; D62 Acute posthemorrhagic anemia; Z66 Do not resuscitate; R57.8 Other shock; I95.9 Hypotension, unspecified; D69.6 Thrombocytopenia, unspecified; E87.5 Hyperkalemia; R57.1 Hypovolemic shock; E86.1 Hypovolemia; I10 Essential (primary) hypertension; Z92.21 Personal history of antineoplastic chemotherapy; Z85.72 Personal history of non-Hodgkin lymphomas; Z82.49 Family history of ischemic heart disease and other diseases of the circulatory system; Z87.01 Personal history of pneumonia (recurrent)
CPT/HCPCS: 36415; 36556; 36600; 70450; 71045; 74177; 76775; 80048; 80053; 80202; 81001; 82565; 82570; 82652; 82805; 82962; 83605; 83690; 83880; 84100; 84132; 84133; 84156; 84300; 84484; 84550; 85007; 85027; 85610; 86850; 86900; 86901; 86920; 87040; 87070; 87205; 93005; 93306; 94002; 94003; 94640; 99291; 99292; G0378; J0171; J1815; J2003; J2470; J2543; J3430; J3490; P9047